=== PATIENT | female | born 1960 | race Caucasian/White ===

== ENCOUNTER 2024-10-28 08:21 | Outpatient (REF) | payer MEDICARE, MEDICAID, SELFPAY ==
--- NOTE | ~2024-10-28 | XR_ITS ---
EXAMINATION: XR SHOULDER 2 OR MORE VIEWS RIGHT HISTORY: M25.511 - Pain in right shoulder COMPARISON: There are no prior studies available for comparison. FINDINGS: Two views of the right shoulder are submitted. Osseous mineralization is normal. There is a moderately displaced transverse fracture of the proximal humeral diaphysis. There is moderate angulation noted on the scapular Y view. The glenohumeral joint is not well evaluated. There is mild degenerative change of the AC joint. The patient is status post lower cervical fusion. The soft tissues are unremarkable. XR/XR shoulder RT min 2V IMPRESSION: Moderately displaced transverse fracture of the proximal humeral diaphysis. Electronically signed by: Camilo Grijalva MD 10/28/2024 10:14 AM [facility]
--- OUTSIDE RECORDS SUMMARY | 2024-10-28 08:36 | XMS_ITS | Encounter Summary ---
Author Organization [employer] Address [address] [facility] 7t [place] [address] Care Team Providers Care Community Development Planner Name Role Phone Jo AnnYnes SECURITY PUBLIC SAFETY OFFICER Primary Care Provider [phone] Felicia Mcdermott RN Unavailable Reina Shen Unavailable Ronna Lopez SECURITY PUBLIC SAFETY OFFICER Primary Care Provider [phone] Encounter Details Date Type Department Care Team (Late st Contact Info) Description 01/10/2024 Orders Only [facility] Information Management [address] [place], [place] [id number] Provider, Not In System Social History Tobacco Use Types Packs/Day Years Used Date Smoking Tobacco: Former Cigarettes Q uit: 2010 Smokeless Tobacco: Never Comments:Quit 13 years ago Alcohol Use Standard Drinks/Week Comments Never 0 (1 standard drink = 0.6 oz pur e alcohol) Alcohol Answer Date Recorded How often do you have a drink containing alcohol ? 0 01/10/2024 How many drinks containing a lcohol do you have on a typical day when you are drinking? 0 01/10/2024 How often do you have six or more drinks on one occasion? 0 01/10/2024 Depression Answer Date Recorded Patient Health Questionnaire-9 Score 4 02/02/2023 Housing Stability Answer Date Recorded What is your housing situation today? I have kamila manley 06/15/[address] you li ve. Do you have problems with any of the following? None of the above 06/15/2023 Food Insecurity Answer Date Recorded Within the past 12 months, y ou worried that your food would run out before you got money to buy more: Never True 06/15/2023 Within the past 12 months,th e food you bought just didn't last and you didn't have enough money to get more: Never True Transportation Answer Date Recorded In the past 12 months, has l ack of transportation kept you from medical appts, meetings, work or from getting things needed for daily living? No 06/15/2023 Intimate Partner Violence Answer Date R ecorded Within the last year, have y ou been afraid of your partner or ex-partner? 2 01/10/2024 Within the last year, have y ou been humiliated or emotionally abused in other ways by your partner or ex-partner? 2 Within the last year, have y ou been kicked, hit, slapped, or otherwise physically hurt by your partner or ex-partner? 2 01/10/2024 Within the last year, have y ou been raped or forced to have any kind of sexual activity by your partner or ex-partner? 2 01/10/2024 Utilities Answer Date Recorded In the past 12 months, has t he [employer], gas, oil or water company threatened to shut off services in your home? No 06/15/2023 Depression Answer Date Recorded Patient Health Questionnaire-2 Score 0 02/02/2023 Comments Unknown Sex and Gender Information Value Date Recorded Sex Assigned at Female 11/11/2022 2:22 PM EDT Legal Sex Female 6:21 PM EDT Gender Identity Female 06/24/2022 6:21 PM EDT Sexual Orientation Straight 06/24/2022 6: 21 PM EDT documented as of this encounter Plan of Treatment Upcoming Encounters Date Type Department Care Team (Late st Contact Info) Description 12/02/2024 12:40 PM EDT Office Visit [address] [phone] Ronna Lopez FNP [address] [place] [address] 03/25/2025 10:00 AM EDT Clinical Support [address] [phone] Felicia Mcdermott RN [address] [place] [phone] documented as of this encounter Procedures Procedure Name Priority Date/Time Associated Diagnosis Comments MAMMOGRAPHY Routine 01/05/2024 11:10 AM EDT documented in this encounter Results * Mammography (01/05/2024 11:10 AM EDT) Anatomical Region Laterality Modality Other us Not In System Provider HEALTH MAINTENANCE Final Result documented in this encounter Visit Diagnoses Not on filedocumented in this encounter Additional Health Concerns Assessment Noted Time PHQ-9 Depression Total Score: 4 02/03/20 23 9:35 AM EDT documented as of this encounter Care Teams Community Development Planner Relationship Specialty Start Date End Date Ynes Cherry FNP PCP - General Family Medicine 02/02/23 09/01/24 Ronna Lopez FNP [address] [place] [address] PCP - General Family Medicine 09/02/24 Felicia Mcdermott, RN [address] [place] [address] Cyber Incident Handler 05/24/23 Reina Shen [address] [place] [phone] Community [facility] Behavioral [facility] 08/30/23 documented as of this encounter
--- OUTSIDE RECORDS SUMMARY | 2024-10-28 08:36 | XMS_ITS | Encounter Summary ---
Author Organization [employer] Address [address] [facility] 7t [place] [address] Care Team Providers Care Baseball Scout Name Role Phone Ynes Cherry Primary Care Provider [phone] Felicia Mcdermott RN Unavailable Reina Shen Unavailable Ronna Lopez SALON SALES CONSULTANT Primary Care Provider [phone] Reason for Visit * Reason Comments Med Refill Encounter Details Date Type Department Care Team (Late st Contact Info) Description 06/11/2024 Refill [facility] [address] [place] [address] Ynes Cherry FNP [address] [place] [address] Social History Tobacco Use Types Packs/Day Years Used Date Smoking Tobacco: Former Cigarettes Q uit: 2009 Smokeless Tobacco: Never Comments:Quit 13 years ago [...] the past 12 months, has t he electric, gas, oil or water company threatened to shut off services in your home? No 06/15/2023 Depression Answer Date Recorded Patient Health Questionnaire-2 Score 0 02/02/2023 Comments No Sex and Gender Information Value Date Recorded Sex Assigned at Female 11/11/2022 2:22 PM EDT Legal Sex Female 6:21 PM EDT Gender Identity Female 06/24/2022 6:21 PM EDT Sexual Orientation Straight 06/24/2022 6: 21 PM EDT documented as of this encounter Miscellaneous Notes * Telephone Encounter - KERVIN Lance - 06/11/2024 4:12 PM EDT Approving, but needs appt for additional refills. * Telephone Encounter - Nicole Badillo - 06/11/2024 4:07 PM EDT PCP: KERVIN Dean Last in-person office visit: 01/10/2024 KERVIN Dean Lab Results Component Value Date BUN 9 05/22/2024 CREATININE 0.85 05/22/2024 EGFRCREATINI 86 09/06/2023 HGBA1C 5.9 (H) 05/22/2024 K 4.2 05/22/2024 TSH 2.90 02/02/2023 [] Lab due: [] BMP [] TSH [] A1C [] Appointment due: Future Appointments Date Time Provider Department Center 09/17/2024 10:00 AM Felicia Mcdermott RN [facility] Comments: documented in this encounter Plan of Treatment Upcoming Encounters Date Type Department Care Team (Late st Contact Info) Description 12/02/2024 12:40 PM EDT Office Visit [address] [phone] Ronna Lopez FNP [address] [place] [address] 03/25/2025 10:00 AM EDT Clinical Support [address] [phone] Felicia Mcdermott RN [address] [place] [address] documented as of this encounter Visit Diagnoses Not on filedocumented in this encounter Additional Health Concerns Assessment Noted Time PHQ-9 Depression Total Score: 4 02/03/20 23 9:35 AM EDT documented as of this encounter Care Teams Baseball Scout Relationship Specialty Start Date End Date Ynes Cherry FNP PCP - General Family Medicine 02/02/23 09/01/24 Ronna Lopez FNP [address] [place] [address] PCP - General Family Medicine 09/02/24 Felicia Mcdermott, BETSY [address] [place] [address] Automation And Controls Manager 05/24/23 Reina Shen [address] [place] [address] [facility] 08/30/23 documented as of this encounter
--- OUTSIDE RECORDS SUMMARY | 2024-10-28 08:37 | XMS_ITS | Encounter Summary ---
Author Organization [employer] Address [address] [facility] 7t [place] [address] Care Team Providers Care Resident Advisor Name Role Phone Ynes Cherry Primary Care Provider [phone] Felicia Mcdermott RN Unavailable Reina Shen Unavailable Ronna Lopez FAIRGROUND OPERATOR Primary Care Provider [phone] Encounter Details Date Type Department Care Team (Late st Contact Info) Description 06/09/2023 Abstract [facility] [address] [place] [address] Ynes Cherry FNP [address] [place] [address] [phone] Social History Tobacco Use Types Packs/Day Years Used Date Smoking Tobacco: Former Cigarettes Q uit: 2010 Smokeless Tobacco: Never Comments:Quit 13 years ago Alcohol Use Standard Drinks/Week Comments Never 0 (1 standard drink = 0.6 oz pur e alcohol) Depression Answer Date Recorded Patient Health Questionnaire-9 Score 4 02/02/2023 Housing Stability Answer Date Recorded What is your housing situation today? I have kamila manley 06/05/[address] you li ve. Do you have problems with any of the following? None of the above 06/05/2023 Food Insecurity Answer Date Recorded Within the past 12 months, y ou worried that your food would run out before you got money to buy more: Never True 06/05/2023 Within the past 12 months,th e food you bought just didn't last and you didn't have enough money to get more: Never True 04/2023 Transportation Answer Date Recorded In the past 12 months, has l ack of transportation kept you from medical appts, meetings, work or from getting things needed for daily living? No 06/05/2023 Utilities Answer Date Recorded In the past 12 months, has t he electric, gas, oil or water company threatened to shut off services in your home? No 06/05/2023 Depression Answer Date Recorded Patient Health Questionnaire-2 [...] Description 12/02/2024 12:40 PM EDT Office Visit [address] [phone] Ronna Lopez FNP [address] [place], [place] [phone] 03/25/2025 10:00 AM EDT Clinical Support [address] [phone] Felicia Mcdermott RN [address] [place] [phone] documented as of this encounter Visit Diagnoses Not on filedocumented in this encounter Additional Health Concerns Assessment Noted Time PHQ-9 Depression Total Score: 4 02/03/20 23 9:35 AM EDT documented as of this encounter Care Teams Resident Advisor Relationship Specialty Start Date End Date Ynes Cherry FNP PCP - General Family Medicine 02/02/23 09/01/24 Ronna Lopez FNP [address] [place] [address] PCP - General Family Medicine 09/02/24 Felicia Mcdermott, RN [address] [place] [phone] Powderer 05/24/23 Riena Shen [address] [place] [address] [facility] 08/30/23 documented as of this encounter
--- OUTSIDE RECORDS SUMMARY | 2024-10-28 08:37 | XMS_ITS | Encounter Summary ---
Author Organization [employer] Address [address] [facility] 7t [place] [address] Care Team Providers Care Broiler Chef Or Cook Name Role Phone Felicia Mcdermott RN Unavailable Reina Shen Unavailable Ronna Lopez Primary Care Provider [phone] Reason for Visit * Reason Comments Med Refill Encounter Details Date Type Department Care Team ([facility] st Contact Info) Description 09/29/2024 Refill [facility] [address] [place] [address] Ynes Cherry FNP [address] [place] [address] [phone] Primary hypertension Social History Tobacco Use Types Packs/Day Years [...] housing situation today? I have kamila manley 09/02/[address] you li ve. Do you have problems with any of the following? None of the above 09/02/2024 Food Insecurity Answer Date Recorded Within the past 12 months, y ou worried that your food would run out before you got money to buy more: Never True 09/02/2024 Within the past 12 months,th e food you bought just didn't last and you didn't have enough money to get more: Never True 01/2025 Transportation Answer Date Recorded In the past 12 months, has l ack of transportation kept you from medical appts, meetings, work or from getting things needed for daily living? No 09/02/2024 Intimate Partner Violence Answer Date R ecorded [...] the past 12 months, has t he [employer], gas, oil or water [employer] threatened to shut off services in your home? No 09/02/2024 Depression Answer Date Recorded Patient Health Questionnaire-2 Score 0 09/02/2024 Internet Access Answer Date Recorded Internet Access Q1 Yes 09/02/2024 Internet Access Q2 Not on file 09/02/2024 Comments No Sex and Gender Information Value Date Recorded Sex Assigned at Female 11/11/2022 2:22 PM EDT Legal Sex Female 6:21 PM EDT Gender Identity Female 06/24/2022 6:21 PM EDT Sexual Orientation Straight 06/24/2022 6: 21 PM EDT documented as of this encounter Miscellaneous Notes * Telephone Encounter - Starr Werner - 09/30/2024 10:18 AM EST PCP: KERVIN Armando Last in-person office visit: 09/02/2024 KERVIN Armando Lab Results Component Value Date BUN 12 09/17/2024 CREATININE 0.91 09/17/2024 EGFRCREATINI 86 09/06/2023 HGBA1C 5.8 (H) 09/17/2024 K 4.3 09/17/2024 TSH 2.90 02/02/2023 Assessment: [x] Protocol passed [] Lab due [] Appointment due Plan: [x] Please refill for 90 days [] Lab [] BMP [] TSH [] A1C [] Appointment due: Future Appointments Date Time Provider Department Center 10/01/2024 9:30 AM Felicia Mcdermott RN [facility] 12/02/2024 12:40 PM KERVIN Armando [facility] 03/25/2025 10:00 AM Felicia Mcdermott RN [facility] Comments: documented in this encounter Plan of Treatment Upcoming Encounters Date Type Department Care Team (Late st Contact Info) Description 12/02/2024 12:40 PM EDT Office Visit [address] [phone] Ronna Lopez FNP [address] [place] [address] 03/25/2025 10:00 AM EDT Clinical Support [address] [phone] Felicia Mcdermott RN [address] [place] [phone] documented as of this encounter Visit Diagnoses Diagnosis Primary hypertension Unspecified essential hypertension documented in this encounter Additional Health Concerns Assessment Noted Time PHQ-9 Depression Total Score: 4 02/03/20 23 9:35 AM EDT documented as of this encounter Care Teams Broiler Chef Or Cook Relationship Specialty Start Date End Date Ronna Lopez FNP [address] [place] [phone] PCP - General Family Medicine 09/02/24 Felicia Mcdermott, BETSY [address] [place] [address] Garnett Feeder 05/24/23 Reina Shen [address] [place] [phone] [facility] 08/30/23 documented as of this encounter
--- OUTSIDE RECORDS SUMMARY | 2024-10-28 08:37 | XMS_ITS | Clinical Summary ---
Author Organization [employer] Address [address] [place] [address] [address] [place] [address] Care Team Providers Care Universal Winding Machine Operator Name Role Phone Felicia Mcdermott RN Unavailable Reina Shen Unavailable Ronna Lopez Primary Care Provider [phone] Allergies Active Allergy Reactions Criticality Noted Date Comments Codeine Nausea And Vomiting Low 08/19/2013 Other reaction(s): Nausea, Vomiting, Diarrhea Oxycodone-Acetaminoph en Nausea And Vomiting Low 08/19/2013 Other reaction(s): Nausea, Vomiting, Diarrhea Medications hydrOXYzine HCl (Atarax) 25 MG tabletIndications :Schizoaffective disorder, depressive type ([facility]) 023 Active QUEtiapine (SEROquel) 100 MG tabletIndications :Schizoaffective disorder, depressive type ([facility]) 023 Active FreeStyle lancetsIndication s:Type 2 diabetes mellitus with diabetic neuropathy, with long-term current use of insulin ([facility]) 1 each by Other route 4 times daily. 400 each 3 023 Active glucose blood (FREESTYLE LITE) test stripIndications: Type 2 diabetes mellitus with diabetic neuropathy, with long-term current use of insulin ([facility]) 1 each by Other route 2 times daily. 400 each 3 023 Active lurasidone (Latuda) 60 MG tablet TAKE 1 TABLET BY MOUTH AT BEDTIME WITH FOOD 023 Active insulin degludec (Tresiba FlexTouch) 100 UNIT/ML injectionIndicati ons:Type 2 diabetes mellitus with diabetic neuropathy, with long-term current use of insulin ([facility]) ADMINISTER UP TO 78 UNITS UNDER THE SKIN DAILY IN THE MORNING 70 mL 3 024 Active metFORMIN XR (Glucophage-XR) 500 MG 24 hr tabletIndications :Type 2 diabetes mellitus with diabetic neuropathy, with long-term current use of insulin ([facility]) 500mg tabs, 2 tabs twice daily 360 tablet 3 024 Active cholecalciferol (Vitamin D-3) 25 MCG (1000 UT) capsuleIndication s:Vitamin D deficiency Take 1 capsule (25 mcg) by mouth Once per day. 90 capsule 3 024 Active empagliflozin (Jardiance) 25 MGIndications:Typ e 2 diabetes mellitus with other specified complication, unspecified whether nursing home insulin use ([facility]) TAKE 1 TABLET(25 MG) BY MOUTH IN THE MORNING 90 tablet 3 024 Active insulin aspart (NovoLOG FLEXPEN) 100 UNIT/ML penIndications:Ty pe 2 diabetes mellitus with diabetic neuropathy, with long-term current use of insulin ([facility]) Sliding scale inject under the skin. Sliding scale with meals 70-110 none 111-150 2U 151-200 4 201-250 6 251-300 8 301-350 10 351-400 12 30 mL 11 024 Active insulin aspart, with niacinamide, (Fiasp) 100 UNIT/ML injectionIndicati ons:Type 2 diabetes mellitus with diabetic neuropathy, with long-term current use of insulin ([facility]) Inject subcutaneousl y- Sliding scale TID with meals 70-110: none 111-150: 2U 151-200: 4U 201-250: 6U 251-300: 8U 301-350: 10U 351-400: 12U 30 mL 3 024 Active BD Pen Needle Nia 2nd Gen 32G X 4 MM miscIndications:T ype 2 diabetes mellitus with diabetic neuropathy, with long-term current use of insulin ([facility]) USE TO INJECT 4 TIMES DAILY 400 each 3 024 Active lisinopril 5 MG tabletIndications :Primary hypertension Take 1 tablet (5 mg) by mouth Once per day. 90 tablet 3 025 Active rosuvastatin (Crestor) 10 MG tabletIndications :Type 2 diabetes mellitus with diabetic neuropathy, with long-term current use of insulin ([facility]),Hyperli pidemia, unspecified hyperlipidemia type TAKE 1 TABLET(10 MG) BY MOUTH DAILY 90 tablet 3 025 Active Ozempic, 1 MG/DOSE, 4 MG/3ML solution pen-injector INJECT 1MG SUBCUT ONCE WEEKLY 3 mL 1 025 Active lisinopril 5 MG tabletIndications :Primary hypertension Take 1 tablet (5 mg) by mouth in the morning. 90 tablet 3 024 2024 Discontinued rosuvastatin (Crestor) 10 MG tabletIndications :Type 2 diabetes mellitus with diabetic neuropathy, with long-term current use of insulin ([facility]),Hyperli pidemia, unspecified hyperlipidemia type Take 1 tablet (10 mg) by mouth Once per day. 90 tablet 3 024 2024 Discontinued Ozempic, 1 MG/DOSE, 4 MG/3ML solution pen-injector INJECT 1 MG UNDER THE SKIN ONCE PER WEEK 3 mL 1 025 2024 Discontinued lisinopril 5 MG tabletIndications :Primary hypertension TAKE 1 TABLET(5 MG) BY MOUTH IN THE MORNING 90 tablet 3 025 2024 Discontinued(R eorder (will not trigger notification to Pharmacy)) Active Problems Problem Noted Date Diagnosed Date Cervical radiculopathy 02/02/2023 Class 1 obesity with serious comorbidity and body mass index (BMI) of 30.0 to 30.9 in adult 02/02/2023 Depression 02/02/2023 Fibrocystic breast disease in female 02/02/2023 OA (osteoarthritis) 02/02/2023 Type 2 diabetes mellitus wit h neurologic complication, with long-term current use of insulin 12/21/2022 Assessment & Plan (09/17/2024 11:48 AM EST): Stop Fiasp before breakfast Labs today and Felicia will call with any changes needed. Will consider Dexcom Pro if A1c still low, under 6.5% Assessment & Plan (05/22/2024 11:57 AM EDT): Continue current medication regimen including Tresiba 44 units every am, Novolog 6 units before breakfast only, Ozempic 1 mg weekly, Metformin 500mg, 2 tabs BID, Jardiance 25mg daily. Labs today, review and call Matilde if any adjustments needed. Assessment & Plan (03/13/2024 3:22 PM EDT): Continue Tresiba 44 units If Matilde experiences any unusual feelings like waking up during night more often than normal, nightmares, walking with headache or lightheaded she will test glucose over night to r/u low glucose. And call with any lows or concerns/questions. Assessment & Plan (02/21/2024 10:53 AM EDT): Continue current medication regimen. Labs drawn today, will review and call if changes needed. Keep up great job. Assessment & Plan (05/04/2023 9:34 AM EDT): Continue with prescribed medications. Return for follow up HgA1C recheck in 3 months. 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 of oral hypoglycemic drug 03/20/2020 Overview (07/18/2022): Note: Unchanged Menopausal state 11/27/2018 Hypertension 03/31/2016 Vitamin D deficiency 10/21/2013 Cervicalgia 05/20/2013 Overview (07/18/2022): Note: degenerative disc dx at c5-6 and c6-7 Fatty liver 11/15/2012 Hyperlipidemia 05/08/2012 Absence of both cervix and uterus, 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 Encounters Date Type Department Care Team Description 10/02/[address] [phone] Ronna Lopez FNP 10/02/[address] [phone] Ynes Cherry FNP Type 2 diabetes mellitus with diabetic neuropathy, with long-term current use of insulin ([facility]); Hyperlipidemia, unspecified hyperlipidemia type 09/30/[address] [place] [address] Ronna Lopez FNP Primary hypertension 09/29/[address] [phone] Ynes Cherry FNP Primary hypertension 09/17/2024 10:00 AM EST Clinical Support [address] [phone] Felicia Mcdermott RN Type 2 diabetes mellitus with diabetic neuropathy, with long-term current use of insulin ([facility]) 09/03/[address] [phone] Ynes Cherry FNP 09/02/2024 12:40 PM EST Office Visit [address] [phone] Ronna Lopez FNP Cerumen debris on tympanic membrane of both ears (Primary Dx); Type 2 diabetes mellitus with diabetic neuropathy, with long-term current use of insulin ([facility]) from Last 3 Months Immunizations Name Administration Dates Next Due Influenza Injectable Quadriv alant Preservative Free IIV4 MDCK 06/21/2018 Influenza injectable quadriv alent IIV4 with preservative 06/08/2016 Influenza injectable quadriv alent preservative free 04/19/2023,04/20/2022,05/11/2021,04/16,05/29/2017 Influenza, IIV3, injectable 06/03/2014 Influenza, Unspecified 06/18/2020,05/29/2017 Influenza, seasonal, injecta ble, preservative free 06/21/2018 Moderna Covid-19 Vaccine 12+ 07/31/2021,12/05/19 21,11/06/2020 Moderna Covid-19 Vaccine 6+ Bivalent 04/29/2022 Pneumococcal Polysaccharide PPSV23 04/17/2020, Tdap 09/27/2017 Zoster, Recombinant 06/18/2020,04/17/2020 Family History Medical History Relation Name Comments Hypertension Mother Breast cancer Sister Diabetes Neg Hx Heart disease Neg Hx Hyperlipidemia Neg Hx Kidney disease Neg Hx Stroke Neg Hx Relation Name Status Comments Mother Sister Social History Tobacco Use Types Packs/Day Years Used Date Smoking Tobacco: Former Cigarettes Q uit: 2009 Smokeless Tobacco: Never Tobacco Cessation:Counseling Given: Yes Comments:Quit 13 years ago Alcohol Use Standard [...] Orientation Straight 06/24/2022 6: 21 PM EDT Last Filed Vital Signs Vital Sign Reading Time Taken Comments Blood Pressure 112/62 09/02/2024 12:50 PM EST Pulse 115 09/02/2024 12:50 PM EST Temperature 36.3 ??C (97.3 ??F) 09/02/2024 12:[address] Respiratory Rate - - Oxygen Saturation 97% 09/02/2024 12:50 PM EST Inhaled Oxygen Concentration - - Weight 77.7 kg (171 lb 6.4 oz) 09/17/2024 10:17 AM EST Height 166.4 cm (5' 5.51 ) 02/21/2024 9:46 AM ED T Body Mass Index 28.08 02/21/2024 9:46 AM EDT Plan of Treatment Upcoming Encounters Date Type Department Care Team (Late st Contact Info) Description 12/02/2024 12:40 PM EDT Office Visit [address] [phone] Ronna Lopez FNP [address] [place] [phone] 03/25/2025 10:00 AM EDT Clinical Support [address] [phone] Felicia Mcdermott, RN [address] [place] [address] Health Maintenance Due Date Last Done Comments CT Colonography 1958 FIT DNA/Cologuard 1960 Sigmoidoscopy 1960 Hepatitis A Vaccines (1 of 2 - Risk 2-dose series) 1977 Hepatitis B Vaccines (1 of 3 - Risk 3-dose series) 2018 RSV Patients and Patients Aged 60 years or older (1 - Risk 60-74 years 1-dose series) 2018 FOBT 04/04/2024 04/04/2023, 09/2021, 04/21/2021, Additional history exists COVID-19 Vaccine ( season) 2024 04/29/2022, 07/31/2021, 12/04/2020, Additional history exists Colorectal Cancer Screening 04/29/2024 FIT 04/29/2024 Diabetes: Foot Exam 09/06/2024 09/06/2023, 09/06/2023, 09/06/2023, Additional history exists Mammogram 01/04/2025 01/05/2024, 01/05/2024 Alcohol/Substance Use Screening 01/09/2025 01/10/2024 Diabetes: Hemoglobin A1C 03/17/2025 025, 05/22/2024, 02/21/2024, Additional history exists Diabetes: Urine Protein Screening 05/22/2025 05/22/2024, 12/05/2023, 05/24/2023, Additional history exists Eye Exam 06/13/2025 06/13/2023, 03/28/2022 Depression Screening 09/02/2025 09/02/2024, 02/03/20 23 SDOH Screening 09/02/2025 09/02/2024 Tobacco Screening 09/02/2025 09/02/2024 Lipid Panel 09/17/2025 09/17/2024, 01/27, 09/06/2023, Additional history exists DTaP/Tdap/Td Vaccines (2 - Td or Tdap) 09/27/2027 09/27/2017 Colonoscopy 04/29/2032 04/29/2022 Hepatitis C Screening Completed 02/11/2019 Zoster Vaccines Completed 06/18/2020, 04/17/2020 Influenza Vaccine Completed 04/15/2024, , 04/20/2022, Additional history exists Pneumococcal Vaccine: 50+ Years Completed 04/15/2024, 04/17/2020, 06/03/2014 HIB Vaccines Aged Out No longer eligi ble based on patient's age to complete this topic HPV Vaccines Aged Out No longer eligi ble based on patient's age to complete this topic IPV Vaccines Aged Out No longer eligi ble based on patient's age to complete this topic Meningococcal Vaccine Aged Out No mathieu rosendo eligible based on patient's age to complete this topic RSV under 20 months Aged Out No longe r eligible based on patient's age to complete this topic Rotavirus Vaccines Aged Out No longer eligible based on patient's age to complete this topic Procedures Procedure Name Priority Date/Time Associated Diagnosis Comments LIPID PANEL WITH REFLEX TO DIRECT LDL Routine 09/17/2024 10:21 AM EST Type 2 diabetes mellitus with diabetic neuropathy, with long-term current use of insulin ([facility]) COMPREHENSIVE METABOLIC PANEL Routine 09/17/2024 10:21 AM EST Type 2 diabetes mellitus with diabetic neuropathy, with long-term current use of insulin ([facility]) VITAMIN B12 Routine 09/17/2024 10:21 AM EST Type 2 diabetes mellitus with diabetic neuropathy, with long-term current use of insulin ([facility]) CBC WITH AUTO DIFFERENTIAL Routine 09/17/2024 10:21 AM EST Type 2 diabetes mellitus with diabetic neuropathy, with long-term current use of insulin ([facility]) HEMOGLOBIN A1C WITH MPG Routine 09/17/2024 10:21 AM EST Type 2 diabetes mellitus with diabetic neuropathy, with long-term current use of insulin (CMS/H[facility]) ALBUMIN, RANDOM URINE W/CREATININE Routine 05/22/2024 11:41 AM EDT Diabetes mellitus without complication (CMS/HCC) BI MAMMOGRAM SCREENING TOMOSYNTHESIS BILATERAL Routine 01/05/2024 2:20 PM EDT HM DIABETES EYE EXAM Routine 06/13/2023 OCCULT BLOOD, FECAL, IMMUNOASSAY Routine 04/04/2023 9:25 AM EDT Encounter for screening for malignant neoplasm of colon COLONOSCOPY Routine 04/29/2022 HEPATITIS C ANTIBODY Routine 02/11/2019 from Last 3 Months or Most Recently Relevant to Health Maintenance Results * (ABNORMAL) Lipid Panel with Reflex to Direct LDL (09/17/2024 10:21 AM EST) Pathologist [facility] Cholesterol, Total 119 <200 mg/dL [employer] HDL Cholesterol 38(L) > OR = 50 mg/dL [employer] Triglycerides 263(H) <150 mg/dL [employer] Comment: If a non-fasting specimen was collected, consider repeat triglyceride testing on a fasting specimen if clinically indicated. Chema et al. J. of Clin. Lipidol. 2015;9:129-169. LDL Cholesterol 50 mg/dL [employer] Comment: Reference range: <100 Desirable range <100 mg/dL for primary prevention; ?? <70 mg/dL for patients with CHD or diabetic patients with > or = 2 CHD risk factors. LDL-C is now calculated using the Shahram-Friedman calculation, which is a validated novel method providing better accuracy than the Friedewald equation in the estimation of LDL-C. Shahram HAUSER et al. ARIANE. 2013;310(19): 4100-0787 (http://education.Nuggeta/faq/JYL027) Chol/HDLC Ratio 3.1 <5.0 (calc) [employer] Non-HDL Cholesterol 81 <130 mg/dL [employer] Comment: For patients with diabetes plus 1 major ASCVD risk factor, treating to a non-HDL-C goal of <100 mg/dL (LDL-C of <70 mg/dL) is considered a therapeutic option. Blood 09/17/2024 10:2 1 AM EST 09/17/2024 10:22 AM EST Narrative [facility] - 09/17/2024 9:57 PM EST FASTING:NO FASTING: NO Ronna Lopez [facility] BLOOD ORDERABLES Final Resul t Performing Organization Address [facility] Co de Phone Number ROBY Burden [address], [place] [address] [facility] [address] [place] [address] * (ABNORMAL) Hemoglobin A1c with Calculated Mean Plasma Glucose (MPG) (09/17/2024 10:21 AM EST) [facility] Hemoglobin A1c 5.8(H) <5.7 % of total Hgb [facility] [employer] Comment: For someone without known diabetes, a hemoglobin A1c value between 5.7% and 6.4% is consistent with prediabetes and should be confirmed with a follow-up test. For someone with known diabetes, a value <7% indicates that their diabetes is well controlled. A1c targets should be individualized based on duration of diabetes, age, comorbid conditions, and other considerations. This assay result is consistent with an increased risk of diabetes. Currently, no consensus exists regarding use of hemoglobin A1c for diagnosis of diabetes for children. Mean Plasma Glucose 129 mg/dL (calc) [facility] 09/17/2024 10:2 1 AM EST 09/17/2024 10:22 AM EST [facility] - 09/17/2024 9:57 PM EST FASTING:NO FASTING: NO Ronna Lopez [facility] BLOOD ORDERABLES Final Resul t Performing Organization Address [facility] Co de Phone Number [facility] [address], [facility] [place] [address] [facility] [address] [place] [address] * (ABNORMAL) CBC auto differential (09/17/2024 10:21 AM EST) [facility] White Blood Cell Count 9.5 3.8 - 10.8 Thousand/ uL [employer] Red Blood Cell Count 4.77 3.80 - 5.10 Million/u L [facility] Hemoglobin 14.1 11.7 - 15.5 g/dL [facility] Hematocrit 43.0 35.0 - 45.0 % [facility] MCV 90.1 80.0 - 100.0 fL [facility] MCH 29.6 27.0 - 33.0 pg [facility] MCHC 32.8 32.0 - 36.0 g/dL [facility] Comment: For adults, a slight decrease in the calculated MCHC value (in the range of 30 to 32 g/dL) is most likely not clinically significant; however, it should be interpreted with caution in correlation with other red cell parameters and the patient's clinical condition. RDW 13.1 11.0 - 15.0 % [facility] Platelet Count 372 140 - 400 Thousand/ uL [facility] MPV 10.6 7.5 - 12.5 fL [facility] Absolute Neutrophils 5,928 1,500 - 7,800 cells/uL [facility] Absolute Lymphocytes 2,394 850 - 3,900 cells/uL [facility] Absolute Monocytes 447 200 - 950 cells/uL [facility] Absolute Eosinophils 627(H) 15 - 500 cells/uL [facility] Basophils 105 0 - 200 cells/uL [facility] Neutrophils 62.4 % [facility] [place] [facility] Lymphocytes 25.2 % [facility] [place] [facility] Monocytes 4.7 % [facility] [place] [facility] Eosinophils 6.6 % [facility] [place] [facility] Basophils 1.1 % [facility] [employer] [place] [facility] Blood Venous blood specimen / Unknown 09/17/2024 10:21 AM EST 09/17/2024 10:22 AM EST Narrative [facility] - 09/17/2024 9:57 PM EST FASTING:NO FASTING: NO us Ronna [facility] BLOOD ORDERABLES Final Resul t [facility] [address], [place] [address] [facility] [address] [place] [address] * Vitamin B12 (09/17/2024 10:21 AM EST) Vitamin B12 322 200 - 1,100 pg/mL [facility] Comment: Please Note: Although the reference range for vitamin B12 is 200-1100 pg/mL, it has been reported that between 5 and 10% of patients with values between 200 and 400 pg/mL may experience neuropsychiatric and hematologic abnormalities due to occult B12 deficiency; less than 1% of patients with values above 400 pg/mL will have symptoms. Blood Venous blood specimen / Unknown 09/17/2024 10:21 AM EST 09/17/2024 10:22 AM EST Narrative [facility] - 09/17/2024 9:57 PM EST FASTING:NO FASTING: NO Ronna Lopez [facility] BLOOD ORDERABLES Final Resul t [facility] [address], [place] [address] [facility] [address] [place] [address] * (ABNORMAL) Comprehensive Metabolic Panel (09/17/2024 10:21 AM EST) Pathologist [facility] Glucose 174(H) 65 - 139 mg/dL [facility] Comment: ? Non-fasting reference interval Urea Nitrogen (BUN) 12 7 - 25 mg/dL [facility] Creatinine, Serum 0.91 0.50 - 1.05 mg/dL [facility] eGFR 70 > OR = 60 mL/min/1. 73m2 [facility] BUN/Creatinine Ratio SEE NOTE: (calc) [facility] Comment: ?? Not Reported: BUN and Creatinine are within ?? reference range. ? Sodium 140 135 - 146 mmol/L [facility] Potassium 4.3 3.5 - 5.3 mmol/L [facility] Chloride 104 98 - 110 mmol/L [employer] [facility] Carbon Dioxide 23 20 - 32 mmol/L [facility] [employer] [place] Calcium 9.5 8.6 - 10.4 mg/dL [facility] [place] [facility] Protein, Total 6.9 6.1 - 8.1 g/dL [facility] [employer] [place] [facility] Albumin 4.3 3.6 - 5.1 g/dL [facility] Globulin 2.6 1.9 - 3.7 g/dL (calc) [facility] [employer] [place] [facility] Albumin/Globuli n Ratio 1.7 1.0 - 2.5 (calc) [facility] Bilirubin, Total 0.3 0.2 - 1.2 mg/dL [facility] Alkaline Phosphatase 46 37 - 153 U/L [facility] AST 17 10 - 35 U/L [facility] ALT 18 6 - 29 U/L [facility] Blood Venous blood specimen / Unknown 09/17/2024 10:21 AM EST 09/17/2024 10:22 AM EST Narrative [facility] - 09/17/2024 9:57 PM EST FASTING:NO FASTING: NO us Ronna Lopez [facility] BLOOD ORDERABLES Final Resul t [facility] [address], [place] [address] [facility] [address] [place] [address] * Albumin, Random Urine W/Creatinine (05/22/2024 11:41 AM EDT) Creatinine, Random Urine 91 20 - 275 mg/dL [facility] [employer] Albumin, Urine 0.9 See Note: mg/dL [facility] Comment: Reference Range: Reference Range Not established Albumin/Creatinin e Ratio, Random Urine 10 <30 mg/g creat [facility] Comment: The ADA defines abnormalities in albumin excretion as follows: Albuminuria Category ?Result (mg/g creatinine) Normal to Mildly increased ?? <30 Moderately increased ? 30-299 Severely increased ? > OR = 300 The ADA recommends that at least two of three specimens collected within a 3-6 month period be abnormal before considering a patient to be within a diagnostic category. Urine (Urine, Random) 05/22/2024 11:41 AM EDT 05/22/2024 11:41 AM EDT Narrative [facility] - 05/23/2024 8:07 PM EDT FASTING:NO FASTING: NO Ynes Cherry SURGICAL RESIDENT LAB URINE ORDERABLES Final Res ult [employer] [address], [place] [address] [facility] [address] [place] [address] * BI Mammogram Screening Tomosynthesis Bilateral (01/05/2024 2:20 PM EDT) Anatomical Region Laterality Modality Breast Bilateral Mammography 01/05/2024 2:20 PM EDT Narrative 01/05/2024 5:02 PM EDT PROCEDURE: MM Digital Mammo Screening INDICATION: ??Screening for breast cancer. ??No known palpable abnormalities. COMPARISON: Back to 10/07/2013 including a diagnostic left breast ultrasound 07/05/2016 document fibrocystic change. TECHNIQUE:Full-field digital CC and MLO 3D tomosynthesis images of both breasts were acquired. Computer-aided detection (CAD) was utilized in the interpretation of this study. DENSITY: There are scattered areas of fibroglandular density. FINDINGS: No suspicious masses, microcalcifications, areas of architectural distortion, or skin thickening to suggest malignancy. There are a few scattered waxing and waning bilateral masses with low-suspicion features again noted. Scattered bilateral benign-appearing calcifications. Biopsy marker clip right breast. IMPRESSION: No mammographic evidence of malignancy. RECOMMENDATION: Annual mammographic screening. BI-RADS: 2 (Benign) Lay letter mailed to patient WSN: [id number] Ordering Physician: Ynes Cherry Dictated By: ?Juwan Romano MD Dictated Date/Time: ?01/05/24 4:58 pm Reviewed By: ?Juwan Romano MD Signed By: ? Juwan Romano MD Signed Date/Time: ? 01/05/24 4:58 pm Transcribed By: ? CSB Digital Controls Technical Officer Date/Time: ? 01/05/24 4:54 pm Birads: Procedure Note Nani, Image - 01/05/2024 PROCEDURE: MM Digital Mammo Screening INDICATION: Screening for breast cancer. No known palpableabnormalities. COMPARISON: Back to 10/07/2013 including a diagnostic left breastultrasound 07/05/2016 document fibrocystic change. TECHNIQUE:Full-field digital CC and MLO 3D tomosynthesis images of bothbreasts were acquired. Computer-aided detection (CAD) was utilized in theinterpretation of this study. DENSITY: There are scattered areas of fibroglandular density. FINDINGS: No suspicious masses, microcalcifications, areas ofarchitectural distortion, or skin thickening to suggest malignancy. There are a few scattered waxing and waning bilateral masses withlow-suspicion features again noted. Scattered bilateral benign-appearing calcifications. Biopsy marker clip right breast. IMPRESSION: No mammographic evidence of malignancy. RECOMMENDATION: Annual mammographic screening. BI-RADS: 2 (Benign) Lay letter mailed to patient WSN: [id number] Ordering Physician: Ynes Cherry Dictated By: Juwan Romano MD Dictated Date/Time: 01/05/24 4:58 pm Reviewed By: Juwan Romano MD Signed By: Juwan Romano MD Signed Date/Time: 01/05/24 4:58 pm Transcribed By: CSB Digital Controls Technical Officer Date/Time: 01/05/24 4:54 pm Birads: Ynes SRIVASTAVAP IMG BI PROCEDURES Final Result * Diabetes Eye Exam (06/13/2023) Eye Exam Normal Normal Comment:REPEAT EYE EXAMIN 1 MONTH Result [facility] Historical Provider HEALTH MAINTENANCE Final Result * Occult Blood, Fecal, Immunoassay (04/04/2023 9:25 AM EDT) Fecal Occult Blood, Immunochemical (FIT) NEGATIVE (NEG) [facility] Comment: Testing performed or reported by [facility], a Service of [facility], [address] [place] [id number] King Hamm MD, Database Security Expert [facility]# [id number] 04/04/2023 9:25 AM EDT 04/10/2023 9:31 AM EDT Result [facility] Ynes GALEANA LAB BODY FLUIDS AND STOOLS ORD ERABLES Final Result Performing Organization Address City/State/[facility] Co de Phone Number [facility] [address] [place] [phone] * Colonoscopy (04/29/2022) Colonoscopy FIT NEGATIVE Result [facility] Historical Provider HEALTH MAINTENANCE Final Result * Hepatitis C Antibody (02/11/2019) Hepatitis C Antibody Nonreactive Blood Result [facility] Historical Provider HEALTH MAINTENANCE Final Result from Last 3 Months or Most Recently Relevant to Health Maintenance Insurance [employer] * Guarantor: Matilde Ferrer Account Type Relation to Patient Date of Phone Billing Address Dental Self Care Teams Universal Winding Machine Operator Relationship Specialty Start Date End Date Ronna Lopez FNP [address] [place] [address] PCP - General Family Medicine 09/02/24 Felicia Mcdermott, RN [address] [place] [address] Umbrella Repairer 05/24/23 Reina Shen [address] [place] [address] [facility] 08/30/23
--- OUTSIDE RECORDS SUMMARY | 2024-10-28 08:37 | XMS_ITS | Encounter Summary ---
Author Organization [employer] Address [address] [facility] 7t [place] [address] Care Team Providers Care Director Of Public Works Name Role Phone Ynes Cherry Primary Care Provider [phone] Felicia Mcdermott RN Unavailable Reina Shen Unavailable Ronna Lopez SHOTGUN SHELL ASSEMBLY MACHINE ADJUSTER Primary Care Provider [phone] Encounter Details Date Type Department Care Team (Late st Contact Info) Description 06/09/2023 Abstract [facility] [address] [place] [address] Ynes Cherry FNP [address] [place] [address] [phone] Social History Tobacco Use Types Packs/Day Years [...] Description 12/02/2024 12:40 PM EDT Office Visit [address] [phone] Ronna Lopez FNP [address] [place], [place] [phone] 03/25/2025 10:00 AM EDT Clinical Support [address] [phone] Felicia Mcdermott RN [address] [place] [address] documented as of this encounter Visit Diagnoses Not on filedocumented in this encounter Additional Health Concerns Assessment Noted Time PHQ-9 Depression Total Score: 4 02/03/20 23 9:35 AM EDT documented as of this encounter Care Teams Director Of Public Works Relationship Specialty Start Date End Date Ynes Cherry FNP PCP - General Family Medicine 02/02/23 09/01/24 Ronna Lopez FNP [address] [place] [address] PCP - General Family Medicine 09/02/24 Felicia Mcdermott, RN [address] [place] [address] Investigative Agent 05/24/23 Reina Shen [address] [place] [address] [facility] 08/30/23 documented as of this encounter
--- OUTSIDE RECORDS SUMMARY | 2024-10-28 08:37 | XMS_ITS | Encounter Summary ---
Author Organization [facility] [employer] [facility] Address [address] [place] [address] 7 [place] [address] Care Team Providers Care Digital Developer Name Role Phone Deedee Chappell MD Primary Care Provider [phone] Terri Bennett [facility] Primary Care Provider Unavail able King Cameron Unassigned Primary Care Provider U Ynes Bower CHUCKING AND SAWING MACHINE OPERATOR Primary Care Provider Ynes Cherry [facility] Primary Care Provider Felicia Mcdermott RN Unavailable Reina Shen Unavailable Ronna Lopez [facility] Primary Care Provider Encounter Details Date Type Department Care Team (Late st Contact Info) Description 07/18/[address] [phone] Deedee Chappell MD [address] [place] [address] Social History Tobacco Use Types Packs/Day Years Used Date Smoking Tobacco: Never Assessed Comments Unknown Sex and Gender Information Value [...] Description 12/02/2024 12:40 PM EDT Office Visit [address] [phone] Ronna Lopez FNP [address] [place] [address] 03/25/2025 10:00 AM EDT Clinical Support [address] [phone] Felicia Mcdermott, RN [address] [place] [address] documented as of this encounter Visit Diagnoses Not on filedocumented in this encounter Care Teams Digital Developer Relationship Specialty Start Date End Date Deedee Chappell MD [address] [place] [address] PCP - General Family Medicine 07/18/22 08/08/22 Terri Bennett FNP [address] [place] [address] PCP - General Family Medicine 08/09/22 12/05/22 King Cameron Unassigned PCP - General Family Medicine 12/06/22 12/20/22 Ynes Cherry FNP PCP - General Family Medicine 12/21/22 12/21/22 Ynes Cherry FNP PCP - General Family Medicine 02/02/23 09/01/24 Ronna Lopez FNP [address] [place] [address] PCP - General Family Medicine 09/02/24 Felicia Mcdermott, RN [address] [place] [address] Restaurant Worker 05/24/23 Reina Shen [address] [place] [address] [facility] 08/30/23 documented as of this encounter
--- OUTSIDE RECORDS SUMMARY | 2024-10-28 08:37 | XMS_ITS | Encounter Summary ---
Author Organization [employer] Address [address] [facility] 7t [place] [address] Care Team Providers Care Pelt Salter Name Role Phone Ynes Cherry Primary Care Provider [phone] Felicia Mcdermott RN Unavailable Reina Shen Unavailable Ronna Lopez MIXED CROP FARMER Primary Care Provider [phone] Encounter Details Date Type Department Care Team (Late st Contact Info) Description 02/06/2023 Telephone [facility] [address] [place] [address] Ynes Cherry FNP [address] [place] [address] [phone] Social History Tobacco Use Types Packs/Day Years Used Date Smoking Tobacco: Former Cigarettes Q uit: 2010 Smokeless Tobacco: Never Comments:Quit 13 years ago Alcohol Use Standard Drinks/Week Comments Never 0 (1 standard drink = 0.6 oz pur e alcohol) Depression Answer Date Recorded Patient Health Questionnaire-9 Score 4 02/02/2023 Depression Answer Date Recorded Patient Health Questionnaire-2 Score 0 02/02/2023 Comments Unknown Sex and Gender Information Value Date Recorded Sex Assigned at Female 11/11/2022 2:22 PM EDT Legal Sex Female 6:21 PM EDT Gender Identity Female 06/24/2022 6:21 PM EDT Sexual Orientation Straight 06/24/2022 6: 21 PM EDT COVID-19 Exposure Response Date Recorded In the last 10 days, have yo u been in contact with someone who was confirmed or suspected to have Coronavirus/COVID-19? No / Unsure 02/02/2023 8:39 AM EDT documented as of this encounter Miscellaneous Notes * Telephone Encounter - KERVIN [place] - 02/07/2023 11:03 AM EDT This appears to be a duplicate tasks * Telephone Encounter - Ana Pearce - 02/06/2023 10:25 AM EDT Looking for lab results documented in this encounter Plan of Treatment Upcoming Encounters Date Type Department Care Team (Late st Contact Info) Description 12/02/2024 12:40 PM EDT Office Visit [address] [phone] Ronna Lopez FNP [address] [place] [address] 03/25/2025 10:00 AM EDT Clinical Support [address] [phone] Felicia Mcdermott RN [address] [place] [address] documented as of this encounter Visit Diagnoses Not on filedocumented in this encounter Additional Health Concerns Assessment Noted Time PHQ-9 Depression Total Score: 4 02/03/20 23 9:35 AM EDT documented as of this encounter Care Teams Pelt Salter Relationship Specialty Start Date End Date Ynes Cherry FNP PCP - General Family Medicine 02/02/23 09/01/24 Ronna Lopez FNP [address] [place] [address] PCP - General Family Medicine 09/02/24 Felicia Mcdermott, RN [address] [place] [address] Real Estate Assessor 05/24/23 Reina Shen [address] [place] [address] [facility] 08/30/23 documented as of this encounter
--- OUTSIDE RECORDS SUMMARY | 2024-10-28 08:37 | XMS_ITS | Encounter Summary ---
Author Organization [employer] Address [address] [facility] 7t [place] [address] Care Team Providers Care Kier Drier Name Role Phone Felicia Mcdermott RN Unavailable Reina Shen Unavailable Ronna Lopez Primary Care Provider [phone] Reason for Visit * Reason Comments Med Refill Encounter Details Date Type Department Care Team ([facility] st Contact Info) Description 10/02/2024 Refill [facility] [address] [place] [address] Ynes Cherry FNP [address] [place] [address] [phone] Type 2 diabetes mellitus with diabetic neuropathy, with long-term current use of insulin ([facility]); Hyperlipidemia, unspecified hyperlipidemia type Social History Tobacco Use Types Packs/Day Years [...] * Telephone Encounter - Starr Werner - 10/02/2024 8:06 AM EST PCP: KERVIN Armando Last in-person [...] Future Appointments Date Time Provider Department Center 12/02/2024 12:40 PM KERVIN Armando [facility] 03/25/2025 10:00 AM Felicia Mcdermott RN [facility] Comments: documented in this encounter Plan of Treatment Upcoming Encounters Date Type Department Care Team (Late st Contact Info) Description 12/02/2024 12:40 PM EDT Office Visit [address] [phone] Ronna Lopez FNP [address] [place] [address] 03/25/2025 10:00 AM EDT Clinical Support [address] [phone] Felicia Mcdermott, RN [address] [place] [address] documented as of this encounter Visit Diagnoses Diagnosis Type 2 diabetes mellitus with diabetic neuropathy, with long-term current use of insulin ([facility]) Hyperlipidemia, unspecified hyperlipidemia type documented in this encounter Additional Health Concerns Assessment Noted Time PHQ-9 Depression Total Score: 4 02/03/20 23 9:35 AM EDT documented as of this encounter Care Teams Kier Drier Relationship Specialty Start Date End Date Ronna Lopez FNP [address] [place] [address] PCP - General Family Medicine 09/02/24 Felicia Mcdermott, RN [address] [place] [address] Printer Helper 05/24/23 Reina Shen [address] [place] [address] [facility] 08/30/23 documented as of this encounter
--- OUTSIDE RECORDS SUMMARY | 2024-10-28 08:37 | XMS_ITS | Encounter Summary ---
Author Organization [employer] Address [address] [facility] 7t [place] [address] Care Team Providers Care Dean Of Graduate Studies Name Role Phone Wiley Mcdermott RN Unavailable Reina Shen Unavailable Ronna Lopez Primary Care Provider [phone] Encounter Details Date Type Department Care Team (Late st Contact Info) Description 09/30/2024 Refill [facility] [address] [facility] [address] [place] [address] Ronna Lopez FNP [address] [place] [address] Primary hypertension Social History Tobacco Use Types [...] the past 12 months, has t he [employer], gas, oil or water [employer] threatened to shut off services in your [...] encounter Miscellaneous Notes * Telephone Encounter - Renate Oneill - 10/02/2024 3:45 PM EST Patient has been scheduled for 10/07 for dexcom placement with Manuel Mcdermott * Telephone Encounter - Natalya Dai - 09/30/2024 2:01 PM EST PCP: KERVIN Armando Last in-person office visit: was on 09/02/2024. Lab Results Component Value Date BUN 12 [...] Department Center 12/02/2024 12:40 PM KERVIN Armando [facility] 03/25/2025 10:00 AM Wiley Mcdermott, BETSY [facility] Comments: * Telephone Encounter - Lucero Ren - 09/30/2024 10:40 AM EST Patient is looking to reschedule with wiley mcdermott. Call back # [phone] documented in this encounter Plan of Treatment Upcoming Encounters Date Type Department Care Team (Late st Contact Info) Description 12/02/2024 12:40 PM EDT Office Visit [address] [phone] Ronna Lopez FNP [address] [place] [address] 03/25/2025 10:00 AM EDT Clinical Support [address] [phone] Wiley Mcdermott, RN [address] [place] [address] documented as of this encounter Visit Diagnoses Diagnosis Primary hypertension Unspecified essential hypertension documented in this encounter Additional Health Concerns Assessment Noted Time PHQ-9 Depression Total Score: 4 02/03/20 23 9:35 AM EDT documented as of this encounter Care Teams Dean Of Graduate Studies Relationship Specialty Start Date End Date Ronna Lopez FNP [address] [place] [address] PCP - General Family Medicine 09/02/24 Wiley Mcdermott RN [address] [place] [address] Credit Or Loans Officer 05/24/23 Reina Shen [address] [place] [address] [facility] 08/30/23 documented as of this encounter
--- OUTSIDE RECORDS SUMMARY | 2024-10-28 08:37 | XMS_ITS | Encounter Summary ---
Author Organization [employer] Address [address] [place] [address] 7 [place] [address] Care Team Providers Care Towel Inspector Name Role Phone Felicia Mcdermott RN Unavailable Reina Shen Unavailable Ronna Lopez Primary Care Provider [phone] Reason for Visit * Reason Comments Med Refill Encounter Details Date Type Department Care Team ([facility] st Contact Info) Description 10/02/2024 Refill [facility] [address] [place] [address] Ronna Lopez FNP [address] [place], [place] [phone] Social History Tobacco Use Types Packs/Day Years [...] the past 12 months, has t he ideeli, gas, oil or water [employer] threatened to shut off services in your [...] Appointment due Plan: [x] Please refill for 30 days [] Lab [] BMP [] TSH [] A1C [] Appointment due: Future Appointments Date Time Provider Department Center 12/02/2024 12:[address] [facility] 03/25/2025 10:00 AM Felicia Mcdermott RN [facility] Comments: documented in this encounter Plan of Treatment Upcoming Encounters Date Type Department Care Team (Late st Contact Info) Description 12/02/2024 12:40 PM EDT Office Visit [address] [address] Ronna Lopez FNP [address] [place] [address] 03/25/2025 10:00 AM EDT Clinical Support [address] [phone] Felicia Mcdermott RN [address] [place] [address] documented as of this encounter Visit Diagnoses Not on filedocumented in this encounter Additional Health Concerns Assessment Noted Time PHQ-9 Depression Total Score: 4 02/03/20 23 9:35 AM EDT documented as of this encounter Care Teams Towel Inspector Relationship Specialty Start Date End Date Ronna Lopez FNP [address] [place] [address] PCP - General Family Medicine 09/02/24 Felicia Mcdermott, RN [address] [place] [address] Imaging Account Manager 05/24/23 Reina Shen [address] [place] [phone] [facility] 08/30/23 documented as of this encounter
== END 2024-10-28 08:22 | disposition home or self-care (01) ==
LOC: HO.HOSX 08:21
PROVIDERS: Visit Provider Physician Assistant
DX: M25.511 Pain in right shoulder (principal); S42.301A Unspecified fracture of shaft of humerus, right arm, initial encounter for closed fracture
CPT/HCPCS: 73030; 99202

== ENCOUNTER 2024-10-28 09:16 | Outpatient (AMB) | payer MEDICARE, MEDICAID, SELFPAY ==
--- NOTE | 2024-10-28 09:22 | MHC.OFFVIS ---
Vital Signs 10/28/24 09:27 Height 5 ft 8 in Weight 169 lb BMI 25.7 Handedness Right Intake Visit Reasons: FC-Rt shoulder humerus shaft fx Intake Note: Matilde is a 63 year old right hand dominant female who presents today as a new patient for an ER follow up of RT humerus fracture, DOI 10/15/24. Patient presented to [facility] by ambulance s/p slipping and falling on ice. Patient states she is very sore. She mentions that she is very sore and her ROM is limited. Patient states that her pain medication is giving her mild relief. Allergies No Known Allergies Allergy (Verified 10/28/24 09:26) Medication List - Last Reviewed 10/28/24 by Kaila Alegre acetaminophen 500 mg PO Q6H PRN aripiprazole 5 mg PO DAILY bisacodyl 10 mg [place] DAILY PRN dextrose 40% (Glutose-45) 10 grams PO Q15M PRN glucagon (GlucaGen HypoKit) 1 mg subcut Q20M PRN hydromorphone (Dilaudid) 4 mg PO Q6H PRN hydroxyzine HCl 25 mg PO BID PRN hydroxyzine pamoate 25 mg PO BID PRN ibuprofen 600 mg PO Q8H PRN insulin degludec (Tresiba FlexTouch U-100 insulin) 20 units subcut BID lisinopril 5 mg PO DAILY lurasidone 60 mg PO DAILY magnesium hydroxide (Milk of Magnesia) 5 mL PO DAILY PRN metformin 1,000 mg PO DAILY ondansetron HCl 4 mg PO Q6H rosuvastatin 10 mg PO DAILY sodium phosphates 19-7 gram/118 mL (Fleet Enema) 118 mL [place] DAILY PRN HPI HPI FC-Rt shoulder humerus shaft fx: Details: 63 yo female presents to the office today for an injury she sustained to her right humerus on 10/18/24. She stats she was outside and she fell on the ice and landed on the right shoulder. She was seen in the ED via EMS. XR obtained significant for humeral shaft fx She was placed in a splint and a sling and discharge to a short-term rehab. She was referred to our office for ortho eval. PFS Social History (Updated 10/28/24 @ 09:27 by Kaila Alegre) Alcohol intake: never Patient Tobacco Use Status: Never used Tobacco Current occupational status: retired and disabled Current occupation: right hand dominant Review of Systems Const All systems reviewed & are unremarkable except as noted in HPI and below Physical Exam Vital Signs: BMI result Body Mass Index 25.7 Const General: cooperative and no acute distress Orientation/consciousness: patient oriented x3 Resp Effort & Inspection: normal respiratory effort and able to speak in complete sentences Cardio Peripheral pulses: Peripheral pulses 2+ throughout Neuro General: patient oriented x3 Extrem Other: Right shoulder normal joint inspection she does have diffuse swelling over the proximal humerus which extends down into the elbow and forearm. Anterior deltoid sensation intact she has mild tenderness over the fracture site. She can perform elbow range of motion without pain. Wrist range of motion intact. Radial nerve function and sensation intact. Pulses present. Office Procedures AMB Fracture Care Fracture Billing Code: Fracture Billing Code Results Reviewed Results Reviewed: X-rays of the right shoulder obtained in the office today significant for a humeral shaft fracture with significant displacement and angulation. Assessment & Plan Assessment & Plan (1) Fracture of humeral shaft, right, closed: Code(s): S42.301A - Unspecified fracture of shaft of humerus, right arm, initial encounter for closed fracture Category: Medical Plan images were reviewed with Dr. Wolf in the office today. I discussed the extent of the injury to the patient and options available which include conservative management. She was placed in a thermal molded humerus brace today which should be worn at all times. She can use a sling for comfort. I did explain to the patient that gravity will help to reduce the fracture and the surrounding soft tissues help to encapsulate and immobilize as well. We will see her back in 6 weeks with x-rays. If she develops new symptoms such as irritation of the skin or worsening pain she can contact our office to be seen sooner. Orders: Orders XR shoulder RT min 2V Today M25.511 - Pain in right shoulder Coding Level of Care Code New Pt Level 3 (84174) Complex EM visit Add On G2211 Diagnoses Fracture of humeral shaft, right, closed S42.301A CPT Codes Fracture Care - Fracture Billing Code: Fracture Billing Code ([id number])
[2024-10-28 09:27] VITALS: BMI 25.7
--- OUTSIDE RECORDS SUMMARY | 2024-10-28 10:02 | XMS_ITS | Encounter Summary ---
Author Organization [employer] Address [address] [place] [address] 7 [place] [address] Care Team Providers Care Sugar Plantation Manager Name Role Phone Felicia Mcdermott RN Unavailable Reina Shen Unavailable Ronna Lopez Primary Care Provider [phone] Reason for Visit * Reason Comments Med Refill Encounter Details Date Type Department Care Team ([facility] st Contact Info) Description 10/02/2024 Refill [facility] [address] [place] [address] Ronna Lopez FNP [address] [place], [place] [phone] Social History Tobacco Use Types Packs/Day Years [...] the past 12 months, has t he [employer], gas, oil or water [employer] threatened to shut off services in your [...] Department Center 12/02/2024 12:40 PM KERVIN Armando [facility] 03/25/2025 10:00 AM Felicia Mcdermott RN [facility] Comments: documented in this encounter Plan of Treatment Upcoming Encounters Date Type Department Care Team (Late st Contact Info) Description 12/02/2024 12:40 PM EDT Office Visit [address] [address] Ronna Lopez FNP [address] [place] [address] 03/25/2025 10:00 AM EDT Clinical Support [address] [phone] Felicia Mcdermott RN [address] [place] [address] documented as of this encounter Visit Diagnoses Not on filedocumented in this encounter Additional Health Concerns Assessment Noted Time PHQ-9 Depression Total Score: 4 02/03/20 23 9:35 AM EDT documented as of this encounter Care Teams Sugar Plantation Manager Relationship Specialty Start Date End Date Ronna Lopez FNP [address] [place] [address] PCP - General Family Medicine 09/02/24 Felicia Mcdermott, RN [address] [place] [address] Electromagnet Crane Operator 05/24/23 Reina Shen [address] [place] [phone] [facility] 08/30/23 documented as of this encounter
--- OUTSIDE RECORDS SUMMARY | 2024-10-28 10:02 | XMS_ITS | Encounter Summary ---
Author Organization [employer] Address [address] [facility] 7t [place] [address] Care Team Providers Care Hull Grinder Name Role Phone Felicia Mcdermott RN Unavailable Reina Shen Unavailable Ronna Lopez Primary Care Provider [phone] Reason for Visit * Reason Comments Med Refill Encounter Details Date Type Department Care Team ([facility] st Contact Info) Description 10/02/[address] [facility] [address] [place] [address] Ynes Cherry FNP [address] [place] [address] [phone] Type 2 diabetes mellitus with diabetic neuropathy, with long-term current use of insulin ([facility]); Hyperlipidemia, unspecified hyperlipidemia type Social History Tobacco [...] Department Center 12/02/2024 12:40 PM KERVIN Armando [facility] 03/25/2025 10:00 AM Felicia Mcdermott RN [facility] Comments: documented in this encounter Plan of Treatment Upcoming Encounters Date Type Department Care Team (Late st Contact Info) Description 12/02/2024 12:40 PM EDT Office Visit [address] [phone] Ronna Lopez FNP [address] [place] [address] 03/25/2025 10:00 AM EDT Clinical Support [address] [phone] Felicia Mcdermott, RN [address] [place] [address] documented as of this encounter Visit Diagnoses Diagnosis Type 2 diabetes mellitus with diabetic neuropathy, with long-term current use of insulin ([facility]) Hyperlipidemia, unspecified hyperlipidemia type documented in this encounter Additional Health Concerns Assessment Noted Time PHQ-9 Depression Total Score: 4 02/03/20 23 9:35 AM EDT documented as of this encounter Care Teams Hull Grinder Relationship Specialty Start Date End Date Ronna Lopez FNP [address] [place] [address] PCP - General Family Medicine 09/02/24 Felicia Mcdermott, RN [address] [place] [address] Animal Assistant 05/24/23 Reina Shen [address] [place] [address] [facility] 08/30/23 documented as of this encounter
--- OUTSIDE RECORDS SUMMARY | 2024-10-28 10:02 | XMS_ITS | Encounter Summary ---
Author Organization [facility] [employer] [facility] Address [address] [place] [address] 7 [place] [address] Care Team Providers Care Water Analyst Name Role Phone Deedee Chappell MD Primary Care Provider [phone] Terri Bennett [facility] Primary Care Provider Unavail able [place] Unassigned Primary Care Provider U Ynes Bower SUPERVISOR PICKING [employer] Primary Care Provider Ynes Cherry [facility] Primary Care Provider [phone] Felicia Mcdermott RN Unavailable Reina Shen Unavailable Ronna Lopez [facility] Primary Care Provider [phone] Encounter Details Date Type Department Care Team (Late st Contact Info) Description 07/18/[address] [phone] Deedee Chappell MD [address] [place] [address] Social History Tobacco Use Types Packs/Day Years [...] Description 12/02/2024 12:40 PM EDT Office Visit [address] [phone] Ronna Lopez FNP [address] [place] [address] 03/25/2025 10:00 AM EDT Clinical Support [address] [phone] Felicia Mcdermott, RN [address] [place] [address] documented as of this encounter Visit Diagnoses Not on filedocumented in this encounter Care Teams Water Analyst Relationship Specialty Start Date End Date Deedee Chappell MD [address] [place] [address] PCP - General Family Medicine 07/18/22 08/08/22 Terri Bennett FNP [address] [place] [address] PCP - General Family Medicine 08/09/22 12/05/22 [place] Unassigned PCP - General Family Medicine 12/06/22 12/20/22 Ynes Cherry FNP PCP - General Family Medicine 12/21/22 12/21/22 Ynes Cherry FNP PCP - General Family Medicine 02/02/23 09/01/24 Ronna Lopez FNP [address] [place] [address] PCP - General Family Medicine 09/02/24 Felicia Mcdermott, RN [address] [place] [address] Metal Storage Worker 05/24/23 Reina Shen [address] [place] [phone] [facility] 08/30/23 documented as of this encounter
--- OUTSIDE RECORDS SUMMARY | 2024-10-28 10:02 | XMS_ITS | Encounter Summary ---
Author Organization [employer] Address [address] [facility] 7t [place] [address] Care Team Providers Care General Office Worker Name Role Phone Ynes Cherry Primary Care Provider [phone] Felicia Mcdermott RN Unavailable Reina Shen Unavailable Ronna oLpez JOB SUPERINTENDENT Primary Care Provider [phone] Reason for Visit * Reason Comments Med Refill Encounter Details Date Type Department Care Team (Late st Contact Info) Description 06/11/2024 Refill [facility] [address] [place] [address] Ynes Cherry FNP [address] [place] [address] Social History Tobacco Use Types Packs/Day [...] Center 09/17/2024 10:00 AM Felicia Mcdermott RN [facility] Comments: documented in this encounter Plan of Treatment Upcoming Encounters Date Type Department Care Team (Late st Contact Info) Description 12/02/2024 12:40 PM EDT Office Visit [address] [phone] Ronna Lopez FNP [address] [place] [address] 03/25/2025 10:00 AM EDT Clinical Support [address] [phone] Felicia Mcdermott RN [address] [place] [address] documented as of this encounter Visit Diagnoses Not on filedocumented in this encounter Additional Health Concerns Assessment Noted Time PHQ-9 Depression Total Score: 4 02/03/20 23 9:35 AM EDT documented as of this encounter Care Teams General Office Worker Relationship Specialty Start Date End Date Ynes Cherry FNP PCP - General Family Medicine 02/02/23 09/01/24 Ronna Lopez FNP [address] [place] [phone] PCP - General Family Medicine 09/02/24 Felicia Mcdermott, BETSY [address] [place] [phone] Crossband Layer 05/24/23 Reina Shen [address] [place] [address] [facility] 08/30/23 documented as of this encounter
--- OUTSIDE RECORDS SUMMARY | 2024-10-28 10:02 | XMS_ITS | Encounter Summary ---
Author Organization [employer] Address [address] [facility] 7t [place] [address] Care Team Providers Care Adjunct Art History Instructor Name Role Phone Wiley Mcdermott RN Unavailable Reina Shen Unavailable Ronna Lopez Primary Care Provider [phone] Encounter Details Date Type Department Care Team (Late st Contact Info) Description 09/30/2024 Refill [facility] [address] [facility] [address] [place] [address] Ronna Lopez FNP [address] [place] [address] Primary hypertension Social History Tobacco Use Types [...] the past 12 months, has t he [email or web address], gas, oil or water [employer] threatened to shut off services in your [...] Department Center 12/02/2024 12:40 PM KERVIN Armando [facility] 03/25/2025 10:00 AM Wiley Mcdermott, BETSY [facility] Comments: * Telephone Encounter - Lucero Ren - 09/30/2024 10:40 AM EST Patient is looking to reschedule with wiley mcdermott. Call back # [phone] documented in this encounter Plan of Treatment Upcoming Encounters Date Type Department Care Team (Late st Contact Info) Description 12/02/2024 12:40 PM EDT Office Visit [address] [address] Ronna Lopez FNP [address] [place] [address] 03/25/2025 10:00 AM EDT Clinical Support [address] [phone] Wiley Mcdermott, RN [address] [place] [phone] documented as of this encounter Visit Diagnoses Diagnosis Primary hypertension Unspecified essential hypertension documented in this encounter Additional Health Concerns Assessment Noted Time PHQ-9 Depression Total Score: 4 02/03/20 23 9:35 AM EDT documented as of this encounter Care Teams Adjunct Art History Instructor Relationship Specialty Start Date End Date Ronna Lopez FNP [address] [place] [address] PCP - General Family Medicine 09/02/24 Wiley Mcdermott RN [address] [place] [address] Shirt Sewer 05/24/23 Reina Shen [address] [place] [address] [facility] 08/30/23 documented as of this encounter
--- OUTSIDE RECORDS SUMMARY | 2024-10-28 10:02 | XMS_ITS | Clinical Summary ---
Author Organization [employer] Address [address] [place] [address] 7t [place] [address] Care Team Providers Care Event Decorator And Designer Name Role Phone Felicia Mcdermott RN Unavailable Reina Shen Unavailable Ronna Lopez Primary Care Provider [phone] Allergies Active Allergy Reactions Criticality Noted Date Comments Codeine Nausea And Vomiting Low 08/19/2013 Other reaction(s): Nausea, Vomiting, Diarrhea Oxycodone-Acetaminoph en Nausea And Vomiting Low 08/19/2013 Other reaction(s): Nausea, Vomiting, Diarrhea Medications hydrOXYzine HCl (Atarax) 25 MG tabletIndications :Schizoaffective disorder, depressive type ([facility]) 023 Active QUEtiapine (SEROquel) 100 MG tabletIndications :Schizoaffective disorder, depressive type ([facility]) 023 Active FreeStyle lancetsIndication s:Type 2 diabetes mellitus with diabetic neuropathy, with long-term current use of insulin ([facility]) 1 each by Other route 4 times daily. 400 each 3 023 Active glucose blood (FREESTYLE LITE) test stripIndications: Type 2 diabetes mellitus with diabetic neuropathy, with long-term current use of insulin ([facility]) 1 each by Other route 2 times daily. 400 each 3 023 Active lurasidone (Latuda) 60 MG tablet TAKE 1 TABLET BY MOUTH AT BEDTIME WITH FOOD 023 Active insulin degludec (Tresiba FlexTouch) 100 UNIT/ML injectionIndicati ons:Type 2 diabetes mellitus with diabetic neuropathy, with long-term current use of insulin ([facility]) ADMINISTER UP TO 78 UNITS UNDER THE SKIN DAILY IN THE MORNING 70 mL 3 024 Active metFORMIN XR (Glucophage-XR) 500 MG 24 hr tabletIndications :Type 2 diabetes mellitus with diabetic neuropathy, with long-term current use of insulin ([facility]) 500mg tabs, 2 tabs twice daily 360 tablet 3 024 Active cholecalciferol (Vitamin D-3) 25 MCG (1000 UT) capsuleIndication s:Vitamin D deficiency Take 1 capsule (25 mcg) by mouth Once per day. 90 capsule 3 024 Active empagliflozin (Jardiance) 25 MGIndications:Typ e 2 diabetes mellitus with other specified complication, unspecified whether senior care insulin use ([facility]) TAKE 1 TABLET(25 MG) BY MOUTH IN THE MORNING 90 tablet 3 024 Active insulin aspart (NovoLOG FLEXPEN) 100 UNIT/ML penIndications:Ty pe 2 diabetes mellitus with diabetic neuropathy, with long-term current use of insulin ([facility]) Sliding scale inject under the skin. Sliding scale with meals 70-110 none 111-150 2U 151-200 4 201-250 6 251-300 8 301-350 10 351-400 12 30 mL 11 024 Active insulin aspart, with niacinamide, (Fiasp) 100 UNIT/ML injectionIndicati ons:Type 2 diabetes mellitus with diabetic neuropathy, with long-term current use of insulin ([facility]) Inject subcutaneousl y- Sliding scale TID with meals 70-110: none 111-150: 2U 151-200: 4U 201-250: 6U 251-300: 8U 301-350: 10U 351-400: 12U 30 mL 3 024 Active BD Pen Needle Nia 2nd Gen 32G X 4 MM miscIndications:T ype 2 diabetes mellitus with diabetic neuropathy, with long-term current use of insulin ([facility]) USE TO INJECT 4 TIMES DAILY 400 each 3 024 Active lisinopril 5 MG tabletIndications :Primary hypertension Take 1 tablet (5 mg) by mouth Once per day. 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 03/20/2020 Overview (07/18/2022): Note: Unchanged Menopausal state 11/27/2018 Hypertension 03/31/2016 Vitamin D deficiency 10/21/2013 Cervicalgia 05/20/2013 Overview (07/18/2022): Note: degenerative disc dx at c5-6 and c6-7 Fatty liver 11/15/2012 Hyperlipidemia 05/08/2012 Absence of both cervix and uterus, 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 Encounters Date Type Department Care Team Description 10/02/[address] [phone] Ronna Lopez FNP 10/02/[address] [phone] Ynes Cherry FNP Type 2 diabetes mellitus with diabetic neuropathy, with long-term current use of insulin ([facility]); Hyperlipidemia, unspecified hyperlipidemia type 09/30/[address] [place] [address] Ronna Lopez FNP Primary hypertension 09/29/[address] [phone] Ynes Cherry FNP Primary hypertension 09/17/2024 10:00 AM EST Clinical Support [address] [phone] Felicia Mcdermott RN Type 2 diabetes mellitus with diabetic neuropathy, with long-term current use of insulin ([facility]) 09/03/[address] [phone] Ynes Cherry FNP 09/02/2024 12:40 PM EST Office Visit [address] [phone] Ronna Lopez FNP Cerumen debris on tympanic membrane of both ears (Primary Dx); Type 2 diabetes mellitus with diabetic neuropathy, with long-term current use of insulin ([facility]) from Last 3 Months Immunizations Name Administration [...] Description 12/02/2024 12:40 PM EDT Office Visit [address] [phone] Ronna Lopez FNP [address] [place] [address] 03/25/2025 10:00 AM EDT Clinical Support [address] [phone] Felicia Mcdermott, RN [address] [place] [address] Health Maintenance Due Date Last Done Comments [...] neuropathy, with long-term current use of insulin ([facility]) COMPREHENSIVE METABOLIC PANEL Routine 09/17/2024 10:21 AM EST Type 2 diabetes mellitus with diabetic neuropathy, with long-term current use of insulin ([facility]) VITAMIN B12 Routine 09/17/2024 10:21 AM EST Type 2 diabetes mellitus with diabetic neuropathy, with long-term current use of insulin ([facility]) CBC WITH AUTO DIFFERENTIAL Routine 09/17/2024 10:21 AM EST Type 2 diabetes mellitus with diabetic neuropathy, with long-term current use of insulin ([facility]) HEMOGLOBIN A1C WITH MPG Routine 09/17/2024 10:21 [...] Direct LDL (09/17/2024 10:21 AM EST) Pathologist [facility] Cholesterol, Total 119 <200 mg/dL [employer] HDL Cholesterol 38(L) > OR = 50 mg/dL [employer] Triglycerides 263(H) <150 mg/dL [employer] Comment: If a non-fasting specimen was collected, consider repeat triglyceride testing on a fasting specimen if clinically indicated. Chema et al. J. of Clin. Lipidol. 2015;9:129-169. LDL Cholesterol 50 mg/dL [employer] Comment: Reference range: <100 Desirable range <100 mg/dL for primary prevention; ?? <70 mg/dL for patients with CHD or diabetic patients with > or = 2 CHD risk factors. LDL-C is now calculated using the Shahram-Friedman calculation, which is a validated novel method providing better accuracy than the Friedewald equation in the estimation of LDL-C. Shahram HAUSER et al. ARIANE. 2013;310(19): 5349-0028 (http://education.[employer]/faq/HQY305) Chol/HDLC Ratio 3.1 <5.0 (calc) [employer] Non-HDL Cholesterol 81 <130 mg/dL [employer] Comment: For patients with diabetes plus 1 major ASCVD risk factor, treating to a non-HDL-C goal of <100 mg/dL (LDL-C of <70 mg/dL) is considered a therapeutic option. Blood 09/17/2024 10:2 1 AM EST 09/17/2024 10:22 AM EST Narrative [facility] - 09/17/2024 9:57 PM EST FASTING:NO FASTING: NO Ronna Lopez [facility] LAB BLOOD ORDERABLES Final Resul t Performing Organization Address [facility] Co de Phone Number ROBY Burden [address], [place] [address] [facility] [place] [facility] [address] [place] [address] * (ABNORMAL) Hemoglobin A1c with Calculated Mean Plasma Glucose (MPG) (09/17/2024 10:21 AM EST) [facility] Hemoglobin A1c 5.8(H) <5.7 % of total Hgb [facility] [place] [facility] Comment: For someone without known diabetes, a [...] children. Mean Plasma Glucose 129 mg/dL (calc) [facility] [place] [facility] 09/17/2024 10:2 1 AM EST 09/17/2024 10:22 AM EST [facility] - 09/17/2024 9:57 PM EST FASTING:NO FASTING: NO Ronna Lopez [facility] LAB BLOOD ORDERABLES Final Resul t Performing Organization Address [facility] Co de Phone Number [facility] [address], [place] [address] [facility] [place] [facility] [address] [place] [address] * (ABNORMAL) CBC auto differential (09/17/2024 10:21 AM EST) [facility] White Blood Cell Count 9.5 3.8 - 10.8 Thousand/ uL [employer] Red Blood Cell Count 4.77 3.80 - 5.10 Million/u L [facility] [place] [facility] Hemoglobin 14.1 11.7 - 15.5 g/dL [facility] [place] [facility] Hematocrit 43.0 35.0 - 45.0 % [facility] [place] [facility] MCV 90.1 80.0 - 100.0 fL [facility] [place] [facility] MCH 29.6 27.0 - 33.0 pg [facility] [place] [facility] MCHC 32.8 32.0 - 36.0 g/dL [facility] [place] [facility] Comment: For adults, a slight decrease in the calculated MCHC value (in the range of 30 to 32 g/dL) is most likely not clinically significant; however, it should be interpreted with caution in correlation with other red cell parameters and the patient's clinical condition. RDW 13.1 11.0 - 15.0 % [facility] [place] [facility] Platelet Count 372 140 - 400 Thousand/ uL [facility] [place] [facility] MPV 10.6 7.5 - 12.5 fL [facility] [place] [facility] Absolute Neutrophils 5,928 1,500 - 7,800 cells/uL [facility] [place] [facility] Absolute Lymphocytes 2,394 850 - 3,900 cells/uL [facility] [place] [facility] Absolute Monocytes 447 200 - 950 cells/uL [facility] [place] [facility] Absolute Eosinophils 627(H) 15 - 500 cells/uL [facility] [place] [facility] Basophils 105 0 - 200 cells/uL [facility] [place] [facility] Neutrophils 62.4 % [facility] [place] [facility] Lymphocytes 25.2 % [facility] [place] [facility] Monocytes 4.7 % [facility] [place] [facility] Eosinophils 6.6 % [facility] [place] [facility] Basophils 1.1 % [facility] [place] [facility] Blood Venous blood specimen / Unknown 09/17/2024 10:21 AM EST 09/17/2024 10:22 AM EST Narrative [facility] - 09/17/2024 9:57 PM EST FASTING:NO FASTING: NO us Ronna [facility] LAB BLOOD ORDERABLES Final Resul t [facility] [address], [place] [address] [facility] [place] [facility] [address] [place] [address] * Vitamin B12 (09/17/2024 10:21 AM EST) Vitamin B12 322 200 - 1,100 pg/mL [facility] [place] [facility] Comment: Please Note: Although the reference range [...] PM EST FASTING:NO FASTING: NO Ronna Lopez [facility] LAB BLOOD ORDERABLES Final Resul t [facility] [address], [place] [address] [facility] [place] [facility] [address] [place] [address] * (ABNORMAL) Comprehensive Metabolic Panel (09/17/2024 10:21 AM EST) Pathologist [facility] Glucose 174(H) 65 - 139 mg/dL [facility] [place] [facility] Comment: ? Non-fasting reference interval Urea Nitrogen (BUN) 12 7 - 25 mg/dL [facility] [place] [facility] Creatinine, Serum 0.91 0.50 - 1.05 mg/dL [facility] [place] [facility] eGFR 70 > OR = 60 mL/min/1. 73m2 [facility] [place] [facility] BUN/Creatinine Ratio SEE NOTE: (calc) [facility] [place] [facility] Comment: ?? Not Reported: BUN and Creatinine are within ?? reference range. ? Sodium 140 135 - 146 mmol/L [facility] [place] [facility] Potassium 4.3 3.5 - 5.3 mmol/L [facility] [place] [facility] Chloride 104 98 - 110 mmol/L [facility] Carbon Dioxide 23 20 - 32 mmol/L [facility] [place] [facility] Calcium 9.5 8.6 - 10.4 mg/dL [facility] [place] [facility] Protein, Total 6.9 6.1 - 8.1 g/dL [facility] [place] [facility] Albumin 4.3 3.6 - 5.1 g/dL [facility] [place] [facility] Globulin 2.6 1.9 - 3.7 g/dL (calc) [facility] [place] [facility] Albumin/Globuli n Ratio 1.7 1.0 - 2.5 (calc) [facility] [place] [facility] Bilirubin, Total 0.3 0.2 - 1.2 mg/dL [facility] [place] [facility] Alkaline Phosphatase 46 37 - 153 U/L [facility] AST 17 10 - 35 U/L [facility] [place] [facility] ALT 18 6 - 29 U/L [facility] [place] [facility] Blood Venous blood specimen / Unknown 09/17/2024 10:21 AM EST 09/17/2024 10:22 AM EST Narrative [facility] - 09/17/2024 9:57 PM EST FASTING:NO FASTING: NO us Ronna Lopez [facility] LAB BLOOD ORDERABLES Final Resul t [facility] [address], [place] [address] [facility] [place] [facility] [address] [place] [address] * Albumin, Random Urine W/Creatinine (05/22/2024 11:41 AM EDT) Creatinine, Random Urine 91 20 - 275 mg/dL [facility] [place] [facility] [employer] Albumin, Urine 0.9 See Note: mg/dL [facility] [place] [facility] Comment: Reference Range: Reference Range Not established Albumin/Creatinin e Ratio, Random Urine 10 <30 mg/g creat [facility] [place] [facility] Comment: The ADA defines abnormalities in albumin [...] PM EDT FASTING:NO FASTING: NO Ynes Cherry [facility] URINE ORDERABLES Final Res ult [facility] [address], [place] [address] [facility] [address] [place] [address] * BI Mammogram Screening Tomosynthesis Bilateral (01/05/2024 [...] (Benign) Lay letter mailed to patient WSN: [id number] Ordering Physician: Ynes Cherry Dictated By: ?Juwan Romano MD Dictated Date/Time: ?01/05/24 4:58 pm Reviewed By: ?Juwan Romano MD Signed By: ? Juwan Romano MD Signed Date/Time: ? 01/05/24 4:58 pm Transcribed By: ? CSB Package Line Operator Date/Time: ? 01/05/24 4:54 pm Birads: Procedure [...] (Benign) Lay letter mailed to patient WSN: [id number] Ordering Physician: Ynes Cherry Dictated By: Juwan Romano MD Dictated Date/Time: 01/05/24 4:58 pm Reviewed By: Juwan Romano MD Signed By: Juwan Romano MD Signed Date/Time: 01/05/24 4:58 pm Transcribed By: CSB Package Line Operator Date/Time: 01/05/24 4:54 pm Birads: Ynes [facility] IMG BI PROCEDURES Final Result * Diabetes Eye Exam (06/13/2023) Eye Exam Normal Normal Comment:REPEAT EYE EXAMIN 1 MONTH Result [facility] Historical Provider HEALTH MAINTENANCE Final Result * Occult Blood, Fecal, Immunoassay (04/04/2023 9:25 AM EDT) Fecal Occult Blood, Immunochemical (FIT) NEGATIVE (NEG) [facility] Comment: Testing performed or reported by [facility], a Service of [facility], [address] [place] [address] King Hamm MD, Repairer Hairspring [facility]# [id number] 04/04/2023 9:25 AM EDT 04/10/2023 9:31 AM EDT Result [facility] Ynes [facility] BODY FLUIDS AND STOOLS ORD ERABLES Final Result Performing Organization Address City/State/[facility] Co de Phone Number [facility] [address] [place] [address] * Colonoscopy (04/29/2022) Colonoscopy FIT NEGATIVE Result [facility] Historical Provider HEALTH MAINTENANCE Final Result * Hepatitis C Antibody (02/11/2019) Hepatitis C Antibody Nonreactive Blood Result [facility] Historical Provider HEALTH MAINTENANCE Final Result from Last 3 Months or Most Recently Relevant to Health Maintenance Insurance [employer] [employer] * Guarantor: Matilde Ferrer Account Type Relation to Patient Date of Phone Billing Address Dental Self Care Teams Event Decorator And Designer Relationship Specialty Start Date End Date Ronna Lopez FNP [address] [place] [address] PCP - General Family Medicine 09/02/24 Felicia Mcdermott, RN [address] [place] [address] Label Printer 05/24/23 Reina Shen [address] [place] [address] [facility] 08/30/23
--- OUTSIDE RECORDS SUMMARY | 2024-10-28 10:02 | XMS_ITS | Encounter Summary ---
Author Organization [employer] Address [address] [facility] 7t [place] [address] Care Team Providers Care Epic Stork Specialists Name Role Phone Felicia Mcdermott RN Unavailable Reina Shen Unavailable Ronna Lopez Primary Care Provider [phone] Reason for Visit * Reason Comments Med Refill Encounter Details Date Type Department Care Team ([facility] st Contact Info) Description 09/29/2024 Refill [facility] [address] [place] [address] Ynes Cherry FNP [address] [place] [address] [phone] Primary hypertension Social History Tobacco Use Types [...] the past 12 months, has t he [employer], gas, oil or water [employer] threatened to shut off services in your [...] Armando Last in-person office visit: 09/02/2024 KERVIN Aramndo Lab Results Component Value Date BUN 12 [...] Center 10/01/2024 9:30 AM Felicia Mcdermott RN [facility] 12/02/2024 12:40 PM KERVIN Armando [facility] 03/25/2025 10:00 AM Felicia Mcdermott RN [facility] Comments: documented in this encounter Plan of Treatment Upcoming Encounters Date Type Department Care Team (Late st Contact Info) Description 12/02/2024 12:40 PM EDT Office Visit [address] [phone] Ronna Lopez FNP [address] [place] [address] 03/25/2025 10:00 AM EDT Clinical Support [address] [phone] Felicia Mcdermott RN [address] [place] [address] documented as of this encounter Visit Diagnoses Diagnosis Primary hypertension Unspecified essential hypertension documented in this encounter Additional Health Concerns Assessment Noted Time PHQ-9 Depression Total Score: 4 02/03/20 23 9:35 AM EDT documented as of this encounter Care Teams Epic [employer] Specialists Relationship Specialty Start Date End Date Ronna Lopez FNP [address] [place] [address] PCP - General Family Medicine 09/02/24 Felicia Mcdermott, BETSY [address] [place] [address] Rating Specialist 05/24/23 Reina Shen [address] [place] [address] [facility] 08/30/23 documented as of this encounter
--- OUTSIDE RECORDS SUMMARY | 2024-10-28 10:02 | XMS_ITS | Encounter Summary ---
Author Organization [employer] Address [address] [facility] 7t [place] [address] Care Team Providers Care Quality Control Systems Manager Name Role Phone Jo AnnYnes ADMINISTRATIVE UNDERWRITER Primary Care Provider [phone] Felicia Mcdermott RN Unavailable Reina Shen Unavailable Ronna Lopez ADMINISTRATIVE UNDERWRITER Primary Care Provider [phone] Encounter Details Date Type Department Care Team (Late st Contact Info) Description 01/10/2024 Orders Only [facility] Information Management [address] [place], [place] [phone] Provider, Not In System Social History Tobacco [...] the past 12 months, has t he [employer], gas, oil or water company threatened to [...] Description 12/02/2024 12:40 PM EDT Office Visit [address] [phone] Ronna Lopez FNP [address] [place] [address] 03/25/2025 10:00 AM EDT Clinical Support [address] [phone] Felicia Mcdermott RN [address] [place] [phone] documented as of this encounter Procedures Procedure [...] documented as of this encounter Care Teams Quality Control Systems Manager Relationship Specialty Start Date End Date Ynes Cherry FNP PCP - General Family Medicine 02/02/23 09/01/24 Ronna Lopez FNP [address] [place] [address] PCP - General Family Medicine 09/02/24 Felicia Mcdermott, RN [address] [place] [address] Cat Scan Technologist 05/24/23 Reina Shen [address] [place] [address] [facility] 08/30/23 documented as of this encounter
--- OUTSIDE RECORDS SUMMARY | 2024-10-28 10:02 | XMS_ITS | Encounter Summary ---
Author Organization [employer] Address [address] [facility] 7t [place] [address] Care Team Providers Care Quill Winder Name Role Phone Ynes Cherry Primary Care Provider [phone] Felicia Mcdermott RN Unavailable Reina Shen Unavailable Ronna Lopez [employer]ER Primary Care Provider [phone] Encounter Details Date Type Department Care Team (Late st Contact Info) Description 06/09/2023 Abstract [facility] [address] [place] [address] Ynes Cherry FNP [address] [place] [address] [phone] Social History Tobacco Use Types Packs/Day Years [...] Description 12/02/2024 12:40 PM EDT Office Visit [address] [phone] Ronna Lopez FNP [address] [place], [place] [phone] 03/25/2025 10:00 AM EDT Clinical Support [address] [phone] Felicia Mcdermott RN [address] [place] [address] documented as of this encounter Visit Diagnoses Not on filedocumented in this encounter Additional Health Concerns Assessment Noted Time PHQ-9 Depression Total Score: 4 02/03/20 23 9:35 AM EDT documented as of this encounter Care Teams Quill Winder Relationship Specialty Start Date End Date Ynes Cherry FNP PCP - General Family Medicine 02/02/23 09/01/24 Ronna Lopez FNP [address] [place] [address] PCP - General Family Medicine 09/02/24 Felicia Mcdermott, RN [address] [place] [address] [employer] Principal Solution Specialist 05/24/23 Reina Shen [address] [place] [address] [facility] 08/30/23 documented as of this encounter
--- OUTSIDE RECORDS SUMMARY | 2024-10-28 10:02 | XMS_ITS | Encounter Summary ---
Author Organization [employer] Address [address] [facility] 7t [place] [address] Care Team Providers Care Emergency Vehicle Dispatcher Name Role Phone Ynes Cherry Primary Care Provider [phone] Felicia Mcdermott RN Unavailable Reina Shen Unavailable Ronna Lopez INTERNETWORKING TECHNICIAN Primary Care Provider [phone] Encounter Details Date Type Department Care Team (Late st Contact Info) Description 02/06/2023 Telephone [facility] [address] [place] [address] Ynes Cherry FNP [address] [place] [address] [phone] Social History Tobacco Use Types Packs/Day Years [...] Description 12/02/2024 12:40 PM EDT Office Visit [address] [address] Ronna Lopez FNP [address] [place] [address] 03/25/2025 10:00 AM EDT Clinical Support [address] [address] Felicia Mcdermott RN [address] [place] [address] documented as of this encounter Visit Diagnoses Not on filedocumented in this encounter Additional Health Concerns Assessment Noted Time PHQ-9 Depression Total Score: 4 02/03/20 23 9:35 AM EDT documented as of this encounter Care Teams Emergency Vehicle Dispatcher Relationship Specialty Start Date End Date Ynes Cherry FNP PCP - General Family Medicine 02/02/23 09/01/24 Ronna Lopez FNP [address] [place] [address] PCP - General Family Medicine 09/02/24 Felicia Mcdermott, RN [address] [place] [address] Hostess 05/24/23 Reina Shen [address] [place] [address] [facility] 08/30/23 documented as of this encounter
--- OUTSIDE RECORDS SUMMARY | 2024-10-28 10:02 | XMS_ITS | Encounter Summary ---
Author Organization [employer] Address [address] [facility] 7t [place] [address] Care Team Providers Care Forensic Science Examiner Name Role Phone Ynes Cherry Primary Care Provider [phone] Felicia Mcdermott RN Unavailable Reina Shen Unavailable Ronna Lopez SPEECH AND LANGUAGE CLINICIAN Primary Care Provider [phone] Encounter Details Date Type Department Care Team (Late st Contact Info) Description 06/09/2023 Abstract [facility] [address] [place] [address] Ynes Cherry FNP [address] [place] [address] [phone] Social History Tobacco Use Types Packs/Day Years [...] 12/02/2024 12:40 PM EDT Office Visit [address] [address] Ronna Lopez FNP [address] [place], [place] [phone] 03/25/2025 10:00 AM EDT Clinical Support [address] [address] Felicia Mcdermott RN [address] [place] [address] documented as of this encounter Visit Diagnoses Not on filedocumented in this encounter Additional Health Concerns Assessment Noted Time PHQ-9 Depression Total Score: 4 02/03/20 23 9:35 AM EDT documented as of this encounter Care Teams Forensic Science Examiner Relationship Specialty Start Date End Date Ynes Cherry FNP PCP - General Family Medicine 02/02/23 09/01/24 Ronna Lopez FNP [address] [place] [address] PCP - General Family Medicine 09/02/24 Felicia Mcdermott, RN [address] [place] [address] Virology Teacher 05/24/23 Reina Shen [address] [place] [address] [facility] 08/30/23 documented as of this encounter
== END 2024-10-28 10:19 | disposition home or self-care (01) ==
PROVIDERS: PCP Internal Medicine; Visit Provider Physician Assistant
DX: S42.301A Unspecified fracture of shaft of humerus, right arm, initial encounter for closed fracture (principal); W00.0XXA Fall on same level due to ice and snow, initial encounter
CPT/HCPCS: 99203; G2211

== ENCOUNTER → 2024-10-28 09:17 | Outpatient (BNV) | payer MEDICARE, MEDICAID, SELFPAY | PROVIDERS: Visit Provider Radiology Diagnostic Radiology | DX: M25.511 Pain in right shoulder (principal) | CPT/HCPCS: 73030 ==

== ENCOUNTER 2024-11-04 09:13 | Outpatient (REF) | payer MEDICARE, MEDICAID, SELFPAY ==
--- NOTE | ~2024-11-04 | XR_ITS ---
EXAMINATION: XR HUMERUS, RIGHT CLINICAL INFORMATION: S42.301A - Unspecified fracture of shaft of humerus, right arm, initial ... COMPARISON: October 28, 2024. TECHNIQUE: AP and lateral views of the right humerus. FINDINGS: Transverse oriented displaced fracture mid diaphysis of the right humerus. No foreign gas cast. No callus formation. XR/XR humerus RT IMPRESSION: No healing displaced fracture, mid diaphysis right humerus. Electronically signed by: Zafar Bradshaw MD 11/05/2024 09:34 AM EDT
--- OUTSIDE RECORDS SUMMARY | 2024-11-04 09:51 | XMS_ITS | Encounter Summary ---
Author Organization [employer] Address [address] [facility] 7t [place] [address] Care Team Providers Care Topographical Field Assistant Name Role Phone Ynes Cherry Primary Care Provider [phone] Felicia Mcdermott RN Unavailable Reina Shen Unavailable Ronna Lopez EMPLOYEE TRAINING SPECIALIST Primary Care Provider [phone] Encounter Details Date Type Department Care Team (Late st Contact Info) Description 02/06/2023 Telephone [facility] [address] [place] [address] Ynes Cherry FNP [address] [place] [address] [phone] Social History Tobacco Use Types Packs/Day Years [...] 12/02/2024 12:40 PM EDT Office Visit [address] [address] Ronna Lopez FNP [address] [place] [address] 03/25/2025 10:00 AM EDT Clinical Support [address] [address] Felicia Mcdermott RN [address] [place] [address] documented as of this encounter Visit Diagnoses Not on filedocumented in this encounter Additional Health Concerns Assessment Noted Time PHQ-9 Depression Total Score: 4 02/03/20 23 9:35 AM EDT documented as of this encounter Care Teams Topographical Field Assistant Relationship Specialty Start Date End Date Ynes Cherry FNP PCP - General Family Medicine 02/02/23 09/01/24 Ronna Lopez FNP [address] [place] [address] PCP - General Family Medicine 09/02/24 Felicia Mcdermott, RN [address] [place] [address] Rn Neurology 05/24/23 Reina Shen [address] [place] [address] [facility] 08/30/23 documented as of this encounter
--- OUTSIDE RECORDS SUMMARY | 2024-11-04 09:51 | XMS_ITS | Encounter Summary ---
Author Organization [employer] Address [address] [facility] 7t [place] [address] Care Team Providers Care Block Bolter Mule Operator Name Role Phone Ynes Cherry Primary Care Provider [phone] Felicia Mcdermott RN Unavailable Reina Shen Unavailable Ronna Lopez [employer] Primary Care Provider [phone] Encounter Details Date Type Department Care Team (Late st Contact Info) Description 06/09/2023 Abstract [facility] [address] [place] [address] Ynes Cherry FNP [address] [place] [address] [phone] Social History Tobacco Use Types Packs/Day Years [...] Description 12/02/2024 12:40 PM EDT Office Visit [address] [address] Ronna Lopez FNP [address] [place], [place] [phone] 03/25/2025 10:00 AM EDT Clinical Support [address] [address] Felicia Mcdermott RN [address] [place] [address] documented as of this encounter Visit Diagnoses Not on filedocumented in this encounter Additional Health Concerns Assessment Noted Time PHQ-9 Depression Total Score: 4 02/03/20 23 9:35 AM EDT documented as of this encounter Care Teams Block Bolter Mule Operator Relationship Specialty Start Date End Date Ynes Cherry FNP PCP - General Family Medicine 02/02/23 09/01/24 Ronna Lopez FNP [address] [place] [address] PCP - General Family Medicine 09/02/24 Felicia Mcdermott, RN [address] [place] [address] Bolt Maker 05/24/23 Reina Shen [address] [place] [address] [facility] 08/30/23 documented as of this encounter
--- OUTSIDE RECORDS SUMMARY | 2024-11-04 09:51 | XMS_ITS | Encounter Summary ---
Author Organization [employer] Address [address] [facility] 7t [place] [address] Care Team Providers Care Offset Lithographic Press Setter Name Role Phone Ynes Cherry Primary Care Provider [phone] Felicia Mcdermott RN Unavailable Reina Shen Unavailable Ronna Lopez POWER SYSTEM DISPATCHER Primary Care Provider [phone] Reason for Visit * Reason Comments Med Refill Encounter Details Date Type Department Care Team (Late st Contact Info) Description 06/11/2024 Refill [facility] [address] [place] [address] Ynes Cherry FNP [address] [place] [address] Social History Tobacco Use Types Packs/Day [...] Center 09/17/2024 10:00 AM Felicia Mcdermott RN [facility] Comments: documented in this encounter Plan of Treatment Upcoming Encounters Date Type Department Care Team (Late st Contact Info) Description 12/02/2024 12:40 PM EDT Office Visit [address] [address] Ronna Lopez FNP [address] [place] [address] 03/25/2025 10:00 AM EDT Clinical Support [address] [address] Felicia Mcdermott RN [address] [place] [address] documented as of this encounter Visit Diagnoses Not on filedocumented in this encounter Additional Health Concerns Assessment Noted Time PHQ-9 Depression Total Score: 4 02/03/20 23 9:35 AM EDT documented as of this encounter Care Teams Offset Lithographic Press Setter Relationship Specialty Start Date End Date Ynes Cherry FNP PCP - General Family Medicine 02/02/23 09/01/24 Ronna Lopez FNP [address] [place] [address] PCP - General Family Medicine 09/02/24 Felicia Mcdermott, BETSY [address] [place] [address] Grinding Machine Operator 05/24/23 Reina Shen [address] [place] [address] [facility] 08/30/23 documented as of this encounter
--- OUTSIDE RECORDS SUMMARY | 2024-11-04 09:51 | XMS_ITS | Encounter Summary ---
Author Organization [employer] Address 75 [facility] 7t [place] [address] Care Team Providers Care Bench Examiner Name Role Phone Ynes Cherry Primary Care Provider [phone] Felicia Mcdermott RN Unavailable Reina Shen Unavailable Ronna Lopez AUDITOR SUPERVISOR Primary Care Provider [phone] Encounter Details Date Type Department Care Team (Late st Contact Info) Description 06/09/[address] [facility] [address] [place] [address] Ynes Cherry FNP [address] [place] [address] [phone] Social History Tobacco Use Types Packs/Day Years [...] 12/02/2024 12:40 PM EDT Office Visit [address] [address] Ronna Lopez FNP [address] [place], [place] [phone] 03/25/2025 10:00 AM EDT Clinical Support [address] [address] Felicia Mcdermott RN [address] [place] [address] documented as of this encounter Visit Diagnoses Not on filedocumented in this encounter Additional Health Concerns Assessment Noted Time PHQ-9 Depression Total Score: 4 02/03/20 23 9:35 AM EDT documented as of this encounter Care Teams Bench Examiner Relationship Specialty Start Date End Date Ynes Cherry FNP PCP - General Family Medicine 02/02/23 09/01/24 Ronna Lopez FNP [address] [place] [address] PCP - General Family Medicine 09/02/24 Felicia Mcdermott, RN [address] [place] [address] Technical Instructor 05/24/23 Reina Shen [address] [place] [address] [facility] 08/30/23 documented as of this encounter
--- OUTSIDE RECORDS SUMMARY | 2024-11-04 09:51 | XMS_ITS | Encounter Summary ---
Author Organization [facility] [employer] [facility] Address [address] [place] [address] 7 [place] [address] Care Team Providers Care Principal System Software Engineer Name Role Phone Deedee Chappell MD Primary Care Provider Terri Bennett [facility] Primary Care Provider Unavail able [place] Unassigned Primary Care Provider U Ynes Bower DIMENSION MILL WORKER Primary Care Provider [phone] Ynes Cherry [facility] Primary Care Provider [phone] Felicia Mcdermott RN Unavailable Reina Shen Unavailable Ronna Lopez [facility] Primary Care Provider Encounter Details Date Type Department Care Team (Late st Contact Info) Description 07/18/[address] [phone] Deedee Chappell MD [address] [place] [address] Social History Tobacco Use Types Packs/Day Years [...] Description 12/02/2024 12:40 PM EDT Office Visit [address] [phone] Ronna Lopez FNP [address] [place] [address] 03/25/2025 10:00 AM EDT Clinical Support [address] [phone] Felicia Mcdermott, RN [address] [place] [address] documented as of this encounter Visit Diagnoses Not on filedocumented in this encounter Care Teams Principal System Software Engineer Relationship Specialty Start Date End Date Deedee Chappell MD [address] [place] [address] PCP - General Family Medicine 07/18/22 08/08/22 Terri Bennett FNP [address] [place] [address] PCP - General Family Medicine 08/09/22 12/05/22 King Cameron Unassigned PCP - General Family Medicine 12/06/22 12/20/22 Ynes Cherry FNP PCP - General Family Medicine 12/21/22 12/21/22 Ynes Cherry FNP PCP - General Family Medicine 02/02/23 09/01/24 Ronna Lopez FNP [address] [place] [address] PCP - General Family Medicine 09/02/24 Felicia Mcdermott, RN [address] [place] [address] Roast Master 05/24/23 Reina Shen [address] [place] [address] [facility] 08/30/23 documented as of this encounter
--- OUTSIDE RECORDS SUMMARY | 2024-11-04 09:51 | XMS_ITS | Encounter Summary ---
Author Organization [employer] Address [address] [facility] 7t [place] [address] Care Team Providers Care Disintegrator Feeder Name Role Phone Jo AnnYnes RADIO MECHANIC Primary Care Provider [phone] Felicia Mcdermott RN Unavailable Reina Shen Unavailable Ronna Lopez RADIO MECHANIC Primary Care Provider [phone] Encounter Details Date Type Department Care Team (Late st Contact Info) Description 01/10/2024 Orders Only [facility] Information Management [address] [place], [place] [phone] Provider, Not In System Social History Tobacco [...] the past 12 months, has t he [employer], gas, oil or water company threatened to [...] 12/02/2024 12:40 PM EDT Office Visit [address] [address] Ronna Lopez FNP [address] [place] [address] 03/25/2025 10:00 AM EDT Clinical Support [address] [address] Felicia Mcdermott RN [address] [place] [address] documented as of this encounter Procedures Procedure [...] documented as of this encounter Care Teams Disintegrator Feeder Relationship Specialty Start Date End Date Ynes Cherry FNP PCP - General Family Medicine 02/02/23 09/01/24 Ronna Lopez FNP [address] [place] [address] PCP - General Family Medicine 09/02/24 Felicia Mcdermott, RN [address] [place] [address] Radio Interference Expert 05/24/23 Reina Shen [address] [place] [address] [facility] 08/30/23 documented as of this encounter
--- OUTSIDE RECORDS SUMMARY | 2024-11-04 09:51 | XMS_ITS | Clinical Summary ---
Author Organization [employer] Address [address] [place] [address] [address] [place] [address] Care Team Providers Care Motor Coach Chauffeur Name Role Phone Felicia Mcdermott RN Unavailable Reina Shen Unavailable Ronna Lopez Primary Care Provider [phone] Allergies Active Allergy Reactions Criticality Noted Date Comments Codeine Nausea And Vomiting Low 08/19/2013 Other reaction(s): Nausea, Vomiting, Diarrhea Oxycodone-Acetaminoph en Nausea And Vomiting Low 08/19/2013 Other reaction(s): Nausea, Vomiting, Diarrhea Medications hydrOXYzine HCl (Atarax) 25 MG tabletIndications: Schizoaffective disorder, depressive type ([facility]) 3 Active QUEtiapine (SEROquel) 100 MG tabletIndications: Schizoaffective disorder, depressive type ([facility]) 3 Active FreeStyle lancetsIndications :Type 2 diabetes mellitus with diabetic neuropathy, with long-term current use of insulin ([facility]) 1 each by Other route 4 times daily. 400 each 3 3 Active glucose blood (FREESTYLE LITE) test stripIndications:T ype 2 diabetes mellitus with diabetic neuropathy, with long-term current use of insulin ([facility]) 1 each by Other route 2 times daily. 400 each 3 3 Active lurasidone (Latuda) 60 MG tablet TAKE 1 TABLET BY MOUTH AT BEDTIME WITH FOOD 3 Active insulin degludec (Tresiba FlexTouch) 100 UNIT/ML injectionIndicatio ns:Type 2 diabetes mellitus with diabetic neuropathy, with long-term current use of insulin ([facility]) ADMINISTER UP TO 78 UNITS UNDER THE SKIN DAILY IN THE MORNING 70 mL 3 4 Active metFORMIN XR (Glucophage-XR) 500 MG 24 hr tabletIndications: Type 2 diabetes mellitus with diabetic neuropathy, with long-term current use of insulin ([facility]) 500mg tabs, 2 tabs twice daily 360 tablet 3 4 Active cholecalciferol (Vitamin D-3) 25 MCG (1000 UT) capsuleIndications :Vitamin D deficiency Take 1 capsule (25 mcg) by mouth Once per day. 90 capsule 3 4 Active empagliflozin (Jardiance) 25 MGIndications:Type 2 diabetes mellitus with other specified complication, unspecified whether custodial insulin use ([facility]) TAKE 1 TABLET(25 MG) BY MOUTH IN THE MORNING 90 tablet 3 4 Active insulin aspart (NovoLOG FLEXPEN) 100 UNIT/ML penIndications:Typ e 2 diabetes mellitus with diabetic neuropathy, with long-term current use of insulin ([facility]) Sliding scale inject under the skin. Sliding scale with meals 70-110 none 111-150 2U 151-200 4 201-250 6 251-300 8 301-350 10 351-400 12 30 mL 11 4 Active insulin aspart, with niacinamide, (Fiasp) 100 UNIT/ML injectionIndicatio ns:Type 2 diabetes mellitus with diabetic neuropathy, with long-term current use of insulin ([facility]) Inject subcutaneously - Sliding scale TID with meals 70-110: none 111-150: 2U 151-200: 4U 201-250: 6U 251-300: 8U 301-350: 10U 351-400: 12U 30 mL 3 4 Active BD Pen Needle Nia 2nd Gen 32G X 4 MM miscIndications:Ty pe 2 diabetes mellitus with diabetic neuropathy, with long-term current use of insulin ([facility]) USE TO INJECT 4 TIMES DAILY 400 each 3 4 Active lisinopril 5 MG tabletIndications: Primary hypertension Take 1 tablet (5 mg) by mouth Once per day. 90 tablet 3 5 Active rosuvastatin (Crestor) 10 MG tabletIndications: Type 2 diabetes mellitus with diabetic neuropathy, with long-term current use of insulin ([facility]),Hyperlip idemia, unspecified hyperlipidemia type TAKE 1 TABLET(10 MG) BY MOUTH DAILY 90 tablet 3 5 Active Ozempic, 1 MG/DOSE, 4 MG/3ML solution pen-injector INJECT 1MG SUBCUT ONCE WEEKLY 3 mL 1 5 Active Active Problems Problem Noted Date Diagnosed Date [...] major depressive disorder, without psychotic features 03/20/2020 [facility] current use of oral hypoglycemic drug 03/20/2020 Overview (07/18/2022): Note: Unchanged Menopausal state 11/27/2018 Hypertension 03/31/2016 Vitamin D deficiency 10/21/2013 Cervicalgia 05/20/2013 Overview (07/18/2022): Note: degenerative disc dx at c5-6 and c6-7 Fatty liver 11/15/2012 Hyperlipidemia 05/08/2012 Absence of both cervix and uterus, 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 Encounters Date Type Department Care Team Description 10/02/[address] [phone] Ronna Lopez FNP 10/02/[address] [phone] Ynes Cherry FNP Type 2 diabetes mellitus with diabetic neuropathy, with long-term current use of insulin ([facility]); Hyperlipidemia, unspecified hyperlipidemia type 09/30/[address] [phone] Ronna Lopez FNP Primary hypertension 09/29/[address] [address] Ynes Cherry FNP Primary hypertension 09/17/2024 10:00 AM EST Clinical Support [address] [phone] Felicia Mcdermott, RN Type 2 diabetes mellitus with diabetic neuropathy, with long-term current use of insulin ([facility]) 09/03/[address] [phone] Ynes Cherry FNP 09/02/2024 12:40 PM EST Office Visit [address] [phone] Ronna Lopez, KERVIN Cerumen debris on tympanic membrane of both ears (Primary Dx); Type 2 diabetes mellitus with diabetic neuropathy, with long-term current use of insulin ([facility]) from Last 3 Months Immunizations Name Administration Dates Next Due Influenza Injectable Quadriv alant Preservative Free IIV4 MDCK 06/21/2018 Influenza injectable quadriv alent IIV4 with preservative 06/08/2016 Influenza injectable quadriv alent preservative free 04/19/2023,04/20/2022,05/11/2021,04/16,05/29/2017 Influenza, IIV3, injectable 06/03/2014 Influenza, Unspecified 06/18/2020,05/29/2017 Influenza, seasonal, injecta ble, preservative free 06/21/2018 Moderna Covid-19 Vaccine 12+ 07/31/2021,12/05/19,11/06/2020 Moderna Covid-19 Vaccine 6+ Bivalent 04/29/2022 Pneumococcal [...] Cigarettes Q uit: 2010 Smokeless Tobacco: Never Tobacco Cessation:Counseling Given: Yes [...] Description 12/02/2024 12:40 PM EDT Office Visit [address] [phone] Ronna Lopez FNP [address] [place] [phone] 03/25/2025 10:00 AM EDT Clinical Support [address] [phone] Felicia Mcdermott, BETSY [address] [place] [phone] Health Maintenance Due Date Last Done Comments CT Colonography 1958 FIT DNA/Cologuard 1960 Sigmoidoscopy 1960 Hepatitis A Vaccines (1 of 2 - Risk 2-dose series) 1977 Hepatitis B Vaccines (1 of 3 - Risk 3-dose series) 2018 RSV Patients and Patients Aged 60 years or older (1 - Risk 60-74 years 1-dose series) 2018 FOBT 04/04/2024 04/04/2023, 090 09/2021, 04/21/2021, Additional history exists COVID-19 Vaccine () 04/28/2024 04/29/2022, 07/31/2021, 12/04/2020, Additional history exists Colorectal Cancer Screening 04/29/2024 FIT 04/29/2024 Diabetes: Foot Exam 09/06/2024 09/06/2023, 09/06/2023, 09/06/2023, Additional history exists Mammogram 01/04/2025 01/05/2024, 01/05/2024 Alcohol/Substance Use Screening 01/09/2025 01/10/2024 Diabetes: Hemoglobin A1C 03/17/2025 025, 05/22/2024, 02/21/2024, Additional history exists Diabetes: Urine Protein Screening 05/22/2025 05/22/2024, 12/05/2023, 05/24/2023, Additional history exists Eye Exam 06/13/2025 06/13/2023, 03/28/2022 Depression Screening 09/02/2025 09/02/2024, 02/03/20 SDOH Screening 09/02/2025 09/02/2024 Tobacco Screening 09/02/2025 [...] neuropathy, with long-term current use of insulin ([facility]) COMPREHENSIVE METABOLIC PANEL Routine 09/17/2024 10:21 AM EST Type 2 diabetes mellitus with diabetic neuropathy, with long-term current use of insulin (CMS/HCC) VITAMIN B12 Routine 09/17/2024 10:21 AM EST Type 2 diabetes mellitus with diabetic neuropathy, with long-term current use of insulin (CMS/HCC) CBC WITH AUTO DIFFERENTIAL Routine 09/17/2024 10:21 AM EST Type 2 diabetes mellitus with diabetic neuropathy, with long-term current use of insulin (CMS/HCC) HEMOGLOBIN A1C WITH MPG Routine 09/17/2024 10:21 AM EST Type 2 diabetes mellitus with diabetic neuropathy, with long-term current use of insulin (CMS/HCC) ALBUMIN, RANDOM URINE W/CREATININE Routine 05/22/2024 11:41 AM EDT Diabetes mellitus without complication (CMS/HCC) BI MAMMOGRAM SCREENING TOMOSYNTHESIS BILATERAL Routine 01/05/2024 2:20 PM EDT DIABETES EYE EXAM Routine 06/13/2023 OCCULT BLOOD, FECAL, IMMUNOASSAY Routine 04/04/2023 9:25 AM EDT Encounter for screening for malignant neoplasm of colon COLONOSCOPY Routine 04/29/2022 HEPATITIS C ANTIBODY Routine 02/11/2019 from Last 3 Months or Most Recently Relevant to Health Maintenance Results * (ABNORMAL) Lipid Panel with Reflex to Direct LDL (09/17/2024 10:21 AM EST) Pathologist [facility] Cholesterol, Total 119 <200 mg/dL [facility] [place] [facility] HDL Cholesterol 38(L) > OR = 50 mg/dL [facility] [place] [facility] Triglycerides 263(H) <150 mg/dL [facility] [place] [facility] Comment: If a non-fasting specimen was collected, consider repeat triglyceride testing on a fasting specimen if clinically indicated. Chema et al. J. of Clin. Lipidol. 2015;9:129-169. LDL Cholesterol 50 mg/dL [facility] American Board of Addiction Medicine (ABAM) Comment: Reference range: <100 Desirable range <100 mg/dL for primary prevention; ?? <70 mg/dL for patients with CHD or diabetic patients with > or = 2 CHD risk factors. LDL-C is now calculated using the Elizabet calculation, which is a validated novel method providing better accuracy than the Friedewald equation in the estimation of LDL-C. Shahram SS et al. ARIANE. 2013;310(19): 0673-9902 (http://education.TableGrabber/faq/KDV505) Chol/HDLC Ratio 3.1 <5.0 (calc) [facility] Non-HDL Cholesterol 81 <130 mg/dL [facility] Comment: For patients with diabetes plus 1 major ASCVD risk factor, treating to a non-HDL-C goal of <100 mg/dL (LDL-C of <70 mg/dL) is considered a therapeutic option. Blood 09/17/2024 10:2 1 AM EST 09/17/2024 10:22 AM EST Narrative [facility] - 09/17/2024 9:57 PM EST FASTING:NO FASTING: NO Ronna Lopez [facility] LAB BLOOD ORDERABLES Final Resul t [facility] [address], [place] [address] [facility] [address] [place] [address] * (ABNORMAL) Hemoglobin A1c with Calculated Mean Plasma Glucose (MPG) (09/17/2024 10:21 AM EST) Hemoglobin A1c 5.8(H) <5.7 % of total Hgb [facility] Comment: For someone without known diabetes, a [...] children. Mean Plasma Glucose 129 mg/dL (calc) [facility] 09/17/2024 10:2 1 AM EST 09/17/2024 10:22 AM EST Narrative [facility] - 09/17/2024 9:57 PM EST FASTING:NO FASTING: NO Ronna Lopez [facility] LAB BLOOD ORDERABLES Final Resul t [facility] [address], [place] [address] [facility] [place] [facility] [address] [place] [address] * (ABNORMAL) CBC auto differential (09/17/2024 10:21 AM EST) White Blood Cell Count 9.5 3.8 - 10.8 Thousand/ uL [facility] [place] [facility] Red Blood Cell Count 4.77 3.80 - 5.10 Million/u L [facility] [place] [facility] Hemoglobin 14.1 11.7 - 15.5 g/dL [facility] Hematocrit 43.0 35.0 - 45.0 % [facility] MCV 90.1 80.0 - 100.0 fL [facility] [place] [facility] MCH 29.6 27.0 - 33.0 pg [facility] [place] [facility] MCHC 32.8 32.0 - 36.0 g/dL [facility] [place] [facility] Comment: For adults, a slight decrease in the calculated MCHC value (in the range of 30 to 32 g/dL) is most likely not clinically significant; however, it should be interpreted with caution in correlation with other red cell parameters and the patient's clinical condition. RDW 13.1 11.0 - 15.0 % [employer] Platelet Count 372 140 - 400 Thousand/ uL [facility] [place] [facility] MPV 10.6 7.5 - 12.5 fL [facility] [place] [facility] Absolute Neutrophils 5,928 1,500 - 7,800 cells/uL [facility] Lymphocytes 2,394 850 - 3,900 cells/uL [facility] Absolute Monocytes 447 200 - 950 cells/uL [facility] Absolute Eosinophils 627(H) 15 - 500 cells/uL [facility] Absolute Basophils 105 0 - 200 cells/uL [facility] Neutrophils 62.4 % [facility] Lymphocytes 25.2 % [facility] Monocytes 4.7 % [facility] Eosinophils 6.6 % [facility] Basophils 1.1 % [facility] Blood Venous blood specimen / Unknown 09/17/2024 10:21 AM EST 09/17/2024 10:22 AM EST Narrative [facility] - 09/17/2024 9:57 PM EST FASTING:NO FASTING: NO Ronna Lopez [facility] LAB BLOOD ORDERABLES Final Resul t [facility] [address], [place] [address] [facility] [address] [place] [address] * Vitamin B12 (09/17/2024 10:21 AM EST) Vitamin B12 322 200 - 1,100 pg/mL [facility] Comment: Please Note: Although the reference range [...] PM EST FASTING:NO FASTING: NO Ronna Lopez [facility] LAB BLOOD ORDERABLES Final Resul t [facility] [address], [place] [address] [facility] [place] [facility] [address] [place] [address] * (ABNORMAL) Comprehensive Metabolic Panel (09/17/2024 10:21 AM EST) Glucose 174(H) 65 - 139 mg/dL [facility] Comment: ? Non-fasting reference interval Urea Nitrogen (BUN) 12 7 - 25 mg/dL [facility] [place] [facility] Creatinine, Serum 0.91 0.50 - 1.05 mg/dL [facility] [place] [facility] eGFR 70 > OR = 60 mL/min/1. 73m2 [facility] [place] [facility] BUN/Creatinine Ratio SEE NOTE: 6 - (calc) [facility] Comment: ?? Not Reported: BUN and Creatinine are within ?? reference range. ? Sodium 140 135 - 146 mmol/L [facility] Potassium 4.3 3.5 - 5.3 mmol/L [facility] Chloride 104 98 - 110 mmol/L [facility] Carbon Dioxide 23 20 - 32 mmol/L [facility] Calcium 9.5 8.6 - 10.4 mg/dL [facility] Protein, Total 6.9 6.1 - 8.1 g/dL [facility] Albumin 4.3 3.6 - 5.1 g/dL [facility] Globulin 2.6 1.9 - 3.7 g/dL (calc) [facility] Albumin/Globuli n Ratio 1.7 1.0 - 2.5 (calc) [facility] Bilirubin, Total 0.3 0.2 - 1.2 mg/dL [facility] [place] [facility] Alkaline Phosphatase 46 37 - 153 U/L [facility] [place] [facility] AST 17 10 - 35 U/L [facility] ALT 18 6 - 29 U/L [facility] Blood Venous blood specimen / Unknown 09/17/2024 10:21 AM EST 09/17/2024 10:22 AM EST Narrative [facility] - 09/17/2024 9:57 PM EST FASTING:NO FASTING: NO us Ronna John CURING PRESS OPERATOR LAB BLOOD ORDERABLES Final Resul t Performing Organization Address [facility] de Phone Number [address], [facility] [place] [address] [facility] [place] [facility] [address] [place] [address] * Albumin, Random Urine W/Creatinine (05/22/2024 11:41 AM EDT) Creatinine, Random Urine 91 20 - 275 mg/dL [facility] Albumin, Urine 0.9 See Note: mg/dL [facility] Comment: Reference Range: Reference Range Not established Albumin/Creatinin e Ratio, Random Urine 10 <30 mg/g creat [facility] Comment: The ADA defines abnormalities in albumin [...] 05/23/2024 8:07 PM EDT FASTING:NO FASTING: NO us Ynes Cherry CURING PRESS OPERATOR LAB URINE ORDERABLES Final Res ult Performing Organization Address [facility]/ZIP Co de Phone Number [facility] [address], [place] [address] [facility] [address] [place] [phone] * BI Mammogram Screening Tomosynthesis Bilateral (01/05/2024 [...] (Benign) Lay letter mailed to patient WSN: [id number] Ordering Physician: Ynes Cherry Dictated By: ?Juwan Romano MD Dictated Date/Time: ?01/05/24 4:58 pm Reviewed By: ?Juwan Romano MD Signed By: ? Juwan Romano MD Signed Date/Time: ? 01/05/24 4:58 pm Transcribed By: ? CSB Rate Examiner Date/Time: ? 01/05/24 4:54 pm Birads: Procedure Note Donareli, Wendy - 01/05/2024 PROCEDURE: MM Digital Mammo Screening [...] (Benign) Lay letter mailed to patient WSN: [id number] Ordering Physician: Ynes Cherry Dictated By: Juwan Romano MD Dictated Date/Time: 01/05/24 4:58 pm Reviewed By: Juwan Romano MD Signed By: Juwan Romano MD Signed Date/Time: 01/05/24 4:58 pm Transcribed By: SHANA Rate Examiner Date/Time: 01/05/24 4:54 pm Birads: Ynes [facility] IMG BI PROCEDURES Final Result * Hm Diabetes Eye Exam (06/13/2023) Eye Exam Normal Normal Comment:REPEAT EYE EXAMIN 1 MONTH Historical Provider HEALTH MAINTENANCE Final Result * Occult Blood, Fecal, Immunoassay (04/04/2023 9:25 AM EDT) Fecal Occult Blood, Immunochemical (FIT) NEGATIVE (NEG) [facility] Comment: Testing performed or reported by [facility], a Service of [facility], [address] [place] [address] King Hamm MD, Oil Rig Driller [facility]# [id number] 04/04/2023 9:25 AM EDT 04/10/2023 9:31 AM EDT Y[facility] LAB BODY FLUIDS AND STOOLS ORD ERABLES Final Result [facility] [address] [place] [address] * Colonoscopy (04/29/2022) Colonoscopy FIT NEGATIVE Historical Provider HEALTH MAINTENANCE Final Result * Hepatitis C Antibody (02/11/2019) Hepatitis C Antibody Nonreactive Blood Historical Provider HEALTH MAINTENANCE Final Result from Last 3 Months or Most Recently Relevant to Health Maintenance Insurance [facility] * Guarantor: Matilde Ferrer Account Type Relation to Patient Date of Phone Billing Address Dental Self Care Teams Motor Coach Chauffeur Relationship Specialty Start Date End Date Ronna Lopez FNP [address] [place] [address] PCP - General Family Medicine 09/02/24 Felicia Mcdermott RN [address] [place] [address] Quality Control Director 05/24/23 Reina Shen [address] [place] [address] [facility] 08/30/23
== END 2024-11-04 09:14 | disposition home or self-care (01) ==
LOC: HO.HOSX 09:13
PROVIDERS: Visit Provider Physician Assistant
DX: S42.301A Unspecified fracture of shaft of humerus, right arm, initial encounter for closed fracture (principal)
CPT/HCPCS: 73060; 99212

== ENCOUNTER 2024-11-04 11:06 | Outpatient (AMB) | payer MEDICARE, MEDICAID, SELFPAY ==
--- NOTE | 2024-11-04 11:33 | MHC.OFFVIS ---
Intake Visit Reasons: OV Rt shoulder humerus shaft fx-brace check-W/XR Intake Note: Matilde is a 63 year old right hand dominant female who presents today a follow up of RT humerus fracture, DOI 10/15/24. Patient reports a lot of discomfort with brace and is digging into her arm. She has tried adjusting brace however this has not helped. Her current pain level is a 7 out of 10. Allergies No Known Allergies Allergy (Verified 11/04/24 11:35) Medication List - Last Reconciled 11/04/24 by Ruben Solomon PA-C acetaminophen 500 mg PO Q6H PRN aripiprazole 5 mg PO DAILY bisacodyl 10 mg AL DAILY PRN dextrose 40% (Glutose-45) 10 grams PO Q15M PRN glucagon (GlucaGen HypoKit) 1 mg subcut Q20M PRN hydromorphone (Dilaudid) 4 mg PO Q6H PRN hydroxyzine HCl 25 mg PO BID PRN hydroxyzine pamoate 25 mg PO BID PRN ibuprofen 600 mg PO Q8H PRN insulin degludec (Tresiba FlexTouch U-100 insulin) 20 units subcut BID lisinopril 5 mg PO DAILY lurasidone 60 mg PO DAILY magnesium hydroxide (Milk of Magnesia) 5 mL PO DAILY PRN metformin 1,000 mg PO DAILY ondansetron HCl 4 mg PO Q6H rosuvastatin 10 mg PO DAILY sodium phosphates 19-7 gram/118 mL (Fleet Enema) 118 mL AL DAILY PRN HPI HPI OV Rt shoulder humerus shaft fx-brace check-W/XR: Details: 63-year-old returns to the office today for a follow-up right shoulder humeral shaft fracture. She states her pain has improved however the brace has been sliding down and not fitting well. [facility] Social History (Updated 10/28/24 @ 09:27 by Kaila Alegre) Alcohol intake: never Patient Tobacco Use Status: Never used Tobacco Current occupational status: retired and disabled Current occupation: right hand dominant Review of Systems Const All systems reviewed & are unremarkable except as noted in HPI and below Physical Exam Const General: cooperative and no acute distress Orientation/consciousness: patient oriented x3 Resp Effort & Inspection: normal respiratory effort and able to speak in complete sentences Cardio Peripheral pulses: Peripheral pulses 2+ throughout Neuro General: patient oriented x3 Extrem Other: Right shoulder normal joint inspection . Her swelling has improved since last visit. Anterior deltoid sensation intact she has mild tenderness over the fracture site. She can perform elbow range of motion without pain. Wrist range of motion intact. Radial nerve function and sensation intact. Pulses present. Results Reviewed Results Reviewed: X-rays of the right shoulder obtained in the office today significant for a humeral shaft fracture with significant displacement and angulation. There does appear to be some reduction of the humeral head. Assessment & Plan Assessment & Plan (1) Fracture of humeral shaft, right, closed: Code(s): S42.301A - Unspecified fracture of shaft of humerus, right arm, initial encounter for closed fracture Category: Medical Qualifiers: Encounter type: subsequent encounter Fracture morphology: other fracture Plan: She will discontinue the thermal molded brace and was fit for another humeral shaft fracture brace in the office today she should wear this at all times. I stressed the importance of allowing the shoulder and trapezium muscles to relax to help reduce this fracture. She can work on elbow range of motion as tolerated. I also educated her on the importance of wrist and hand range of motion to help with circulation. She should perform no lifting with the right upper extremity. I did encourage the rehab facility to work on postural training exercises. And she will see me back in 4 weeks with x-rays sooner if needed. Orders: Orders XR humerus RT Today S42.301A - Unspecified fracture of shaft of humerus, right arm, initial encounter for closed fracture Coding Level of Care Code Global (83204) Diagnoses Fracture of humeral shaft, right, closed S42.301A Encounter type: subsequent encounter Fracture morphology: other fracture
--- OUTSIDE RECORDS SUMMARY | 2024-11-04 12:36 | XMS_ITS | Encounter Summary ---
Author Organization [employer] Address [address] [facility] 7t [place] [address] Care Team Providers Care Mounter Flutes And Piccolos Name Role Phone Ynes Cherry Primary Care Provider [phone] Felicia Mcdermott RN Unavailable Reina Shen Unavailable Ronna Lopez RN NEW GRADUATE Primary Care Provider [phone] Encounter Details Date Type Department Care Team (Late st Contact Info) Description 02/06/2023 Telephone [facility] [address] [place] [address] Ynes Cherry FNP [address] [place] [address] [phone] Social History Tobacco Use Types Packs/Day Years [...] Description 12/02/2024 12:40 PM EDT Office Visit [address] [phone] Ronna Lopez FNP [address] [place] [address] 03/25/2025 10:00 AM EDT Clinical Support [address] [phone] Felicia Mcdermott RN [address] [place] [address] documented as of this encounter Visit Diagnoses Not on filedocumented in this encounter Additional Health Concerns Assessment Noted Time PHQ-9 Depression Total Score: 4 02/03/20 23 9:35 AM EDT documented as of this encounter Care Teams Mounter Flutes And Piccolos Relationship Specialty Start Date End Date Ynes Cherry FNP PCP - General Family Medicine 02/02/23 09/01/24 Ronna Lopez FNP [address] [place] [address] PCP - General Family Medicine 09/02/24 Felicia Mcdermott, RN [address] [place] [address] Electrician Shop 05/24/23 Reina Shen [address] [place] [address] [facility] 08/30/23 documented as of this encounter
--- OUTSIDE RECORDS SUMMARY | 2024-11-04 12:36 | XMS_ITS | Encounter Summary ---
Author Organization [employer] Address [address] [facility] 7t [place] [address] Care Team Providers Care Citrus Fruit Packer Name Role Phone Ynes Cherry Primary Care Provider [phone] Felicia Mcdermott RN Unavailable Reina Shen Unavailable Ronna Lopez WELDING SYSTEMS AND EQUIPMENT REPAIRER Primary Care Provider Reason for Visit * Reason Comments Med Refill Encounter Details Date Type Department Care Team (Late st Contact Info) Description 06/11/2024 Refill [facility] [address] [place] [address] Ynes Cherry FNP [address] [place] [address] Social History Tobacco Use Types Packs/Day [...] Center 09/17/2024 10:00 AM Felicia Mcdermott RN [facility] Comments: documented in this encounter Plan of Treatment Upcoming Encounters Date Type Department Care Team (Late st Contact Info) Description 12/02/2024 12:40 PM EDT Office Visit [address] [address] Ronna Lopez FNP [address] [place] [address] 03/25/2025 10:00 AM EDT Clinical Support [address] [address] Felicia Mcdermott RN [address] [place] [address] documented as of this encounter Visit Diagnoses Not on filedocumented in this encounter Additional Health Concerns Assessment Noted Time PHQ-9 Depression Total Score: 4 02/03/20 23 9:35 AM EDT documented as of this encounter Care Teams Citrus Fruit Packer Relationship Specialty Start Date End Date Ynes Cherry FNP PCP - General Family Medicine 02/02/23 09/01/24 Ronna Lopez FNP [address] [place] [address] PCP - General Family Medicine 09/02/24 Felicia Mcdermott, BETSY [address] [place] [address] Server Administrator 05/24/23 Reina Shen [address] [place] [address] [facility] 08/30/23 documented as of this encounter
--- OUTSIDE RECORDS SUMMARY | 2024-11-04 12:36 | XMS_ITS | Clinical Summary ---
Author Organization [employer] Address [address] [place] [address] 7t [place] [address] Care Team Providers Care Cyanide Case Hardener Name Role Phone Felicia Mcdermott RN Unavailable Reina Shen Unavailable Ronna Lopez Primary Care Provider [phone] Allergies Active Allergy Reactions Criticality Noted Date Comments Codeine Nausea And Vomiting Low 08/19/2013 Other reaction(s): Nausea, Vomiting, Diarrhea Oxycodone-Acetaminoph en Nausea And Vomiting Low 08/19/2013 Other reaction(s): Nausea, Vomiting, Diarrhea Medications hydrOXYzine HCl (Atarax) 25 MG tabletIndications: Schizoaffective disorder, depressive type ([facility]) 3 Active QUEtiapine (SEROquel) 100 MG tabletIndications: Schizoaffective disorder, depressive type ([facility]) 3 Active FreeStyle lancetsIndications :Type 2 diabetes mellitus with diabetic neuropathy, with long-term current use of insulin ([facility]) 1 each by Other route 4 times daily. 400 each 3 3 Active glucose blood (FREESTYLE LITE) test stripIndications:T ype 2 diabetes mellitus with diabetic neuropathy, with long-term current use of insulin ([facility]) 1 each by Other route 2 times daily. 400 each 3 3 Active lurasidone (Latuda) 60 MG tablet TAKE 1 TABLET BY MOUTH AT BEDTIME WITH FOOD 3 Active insulin degludec (Tresiba FlexTouch) 100 UNIT/ML injectionIndicatio ns:Type 2 diabetes mellitus with diabetic neuropathy, with long-term current use of insulin ([facility]) ADMINISTER UP TO 78 UNITS UNDER THE SKIN DAILY IN THE MORNING 70 mL 3 4 Active metFORMIN XR (Glucophage-XR) 500 MG 24 hr tabletIndications: Type 2 diabetes mellitus with diabetic neuropathy, with long-term current use of insulin ([facility]) 500mg tabs, 2 tabs twice daily 360 tablet 3 4 Active cholecalciferol (Vitamin D-3) 25 MCG (1000 UT) capsuleIndications :Vitamin D deficiency Take 1 capsule (25 mcg) by mouth Once per day. 90 capsule 3 4 Active empagliflozin (Jardiance) 25 MGIndications:Type 2 diabetes mellitus with other specified complication, unspecified whether mcfp insulin use ([facility]) TAKE 1 TABLET(25 MG) BY MOUTH IN THE MORNING 90 tablet 3 4 Active insulin aspart (NovoLOG FLEXPEN) 100 UNIT/ML penIndications:Typ e 2 diabetes mellitus with diabetic neuropathy, with long-term current use of insulin ([facility]) Sliding scale inject under the skin. Sliding scale with meals 70-110 none 111-150 2U 151-200 4 201-250 6 251-300 8 301-350 10 351-400 12 30 mL 11 4 Active insulin aspart, with niacinamide, (Fiasp) 100 UNIT/ML injectionIndicatio ns:Type 2 diabetes mellitus with diabetic neuropathy, with long-term current use of insulin ([facility]) Inject subcutaneously - Sliding scale TID with meals 70-110: none 111-150: 2U 151-200: 4U 201-250: 6U 251-300: 8U 301-350: 10U 351-400: 12U 30 mL 3 4 Active BD Pen Needle Nia 2nd Gen 32G X 4 MM miscIndications:Ty pe 2 diabetes mellitus with diabetic neuropathy, with long-term current use of insulin ([facility]) USE TO INJECT 4 TIMES DAILY 400 each 3 4 Active lisinopril 5 MG tabletIndications: Primary hypertension Take 1 tablet (5 mg) by mouth Once per day. 90 tablet 3 5 Active rosuvastatin (Crestor) 10 MG tabletIndications: Type 2 diabetes mellitus with diabetic neuropathy, with long-term current use of insulin ([facility]),Hyperlip idemia, unspecified hyperlipidemia type TAKE 1 TABLET(10 [...] major depressive disorder, without psychotic features 03/20/2020 long-term current use of oral hypoglycemic drug 03/20/2020 Overview (07/18/2022): Note: Unchanged Menopausal state 11/27/2018 Hypertension 03/31/2016 Vitamin D deficiency 10/21/2013 Cervicalgia 05/20/2013 Overview (07/18/2022): Note: degenerative disc dx at c5-6 and c6-7 Fatty liver 11/15/2012 Hyperlipidemia 05/08/2012 Absence of both cervix and uterus, 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 Encounters Date Type Department Care Team Description 10/02/[address] [address] Ronna Lopez FNP 10/02/[address] [phone] Ynes Cherry FNP Type 2 diabetes mellitus with diabetic neuropathy, with long-term current use of insulin ([facility]); Hyperlipidemia, unspecified hyperlipidemia type 09/30/[address] [address] Ronna Lopez FNP Primary hypertension 09/29/[address] [address] Ynes Cherry FNP Primary hypertension 09/17/2024 10:00 AM EST Clinical Support [address] [phone] Felicia Mcdermott, RN Type 2 diabetes mellitus with diabetic neuropathy, with long-term current use of insulin ([facility]) 09/03/[address] [address] Ynes Cherry FNP 09/02/2024 12:40 PM EST Office Visit [address] [address] Ronna Lopez, KERVIN Cerumen debris on tympanic membrane of both ears (Primary Dx); Type 2 diabetes mellitus with diabetic neuropathy, with long-term current use of insulin ([facility]) from Last 3 Months Immunizations Name Administration [...] Description 12/02/2024 12:40 PM EDT Office Visit [address] [address] Ronna Lopez FNP [address] [place] [address] 03/25/2025 10:00 AM EDT Clinical Support [address] [address] Felicia Mcdermott, BETSY [address] [place] [address] Health Maintenance Due Date Last Done Comments [...] neuropathy, with long-term current use of insulin ([facility]) COMPREHENSIVE METABOLIC PANEL Routine 09/17/2024 10:21 AM [...] LDL (09/17/2024 10:21 AM EST) Pathologist [facility] Cholesterol, Total 119 <200 mg/dL [email or web address] [place] [facility] HDL Cholesterol 38(L) > OR = 50 mg/dL [facility] [place] [facility] Triglycerides 263(H) <150 mg/dL [facility] Comment: If a non-fasting specimen was collected, consider repeat triglyceride testing on a fasting specimen if clinically indicated. Chema et al. J. of Clin. Lipidol. 2015;9:129-169. LDL Cholesterol 50 mg/dL [email or web address] Comment: Reference range: <100 Desirable range <100 mg/dL for primary prevention; ?? <70 mg/dL for patients with CHD or diabetic patients with > or = 2 CHD risk factors. LDL-C is now calculated using the Elizabet calculation, which is a validated novel method providing better accuracy than the Friedewald equation in the estimation of LDL-C. Shahram SS et al. ARIANE. 2013;310(19): 7642-2723 (http://education.SecureWave/faq/VQD937) Chol/HDLC Ratio 3.1 <5.0 (calc) [email or web address] Non-HDL Cholesterol 81 <130 mg/dL [email or web address] Comment: For patients with diabetes plus 1 major ASCVD risk factor, treating to a non-HDL-C goal of <100 mg/dL (LDL-C of <70 mg/dL) is considered a therapeutic option. Blood 09/17/2024 10:2 1 AM EST 09/17/2024 10:22 AM EST Narrative [facility] - 09/17/2024 9:57 PM EST FASTING:NO FASTING: NO Ronna Lopez [facility] BLOOD ORDERABLES Final Resul t [facility] [address], [place] [address] [email or web address] 200 [place] [address] * (ABNORMAL) Hemoglobin A1c with Calculated Mean Plasma Glucose (MPG) (09/17/2024 10:21 AM EST) Hemoglobin A1c 5.8(H) <5.7 % of total Hgb [email or web address] Comment: For someone without known diabetes, a [...] children. Mean Plasma Glucose 129 mg/dL (calc) [facility] 09/17/2024 10:2 1 AM EST 09/17/2024 10:22 AM EST Narrative [facility] - 09/17/2024 9:57 PM EST FASTING:NO FASTING: NO Ronna Lopez [facility] BLOOD ORDERABLES Final Resul t [facility] [address], [place] [address] [facility] 200 [place] [address] * (ABNORMAL) CBC auto differential (09/17/2024 10:21 AM EST) White Blood Cell Count 9.5 3.8 - 10.8 Thousand/ uL [facility] Red Blood Cell Count 4.77 3.80 - 5.10 Million/u L [facility] Hemoglobin 14.1 11.7 - 15.5 g/dL [facility] Hematocrit 43.0 35.0 - 45.0 % [facility] MCV 90.1 80.0 - 100.0 fL [facility] MCH 29.6 27.0 - 33.0 pg [facility] MCHC 32.8 32.0 - 36.0 g/dL [facility] Comment: For adults, a slight decrease in the calculated MCHC value (in the range of 30 to 32 g/dL) is most likely not clinically significant; however, it should be interpreted with caution in correlation with other red cell parameters and the patient's clinical condition. RDW 13.1 11.0 - 15.0 % [facility] Platelet Count 372 140 - 400 Thousand/ uL [facility] MPV 10.6 7.5 - 12.5 fL [facility] Absolute Neutrophils 5,928 1,500 - 7,800 cells/uL [facility] Lymphocytes 2,394 850 - 3,900 cells/uL [facility] Absolute Monocytes 447 200 - 950 cells/uL [facility] Absolute Eosinophils 627(H) 15 - 500 cells/uL [facility] Absolute Basophils 105 0 - 200 cells/uL [facility] Neutrophils 62.4 % [facility] Lymphocytes 25.2 % [facility] Monocytes 4.7 % [facility] [place] [facility] Eosinophils 6.6 % [facility] Basophils 1.1 % [email or web address] Blood Venous blood specimen / Unknown 09/17/2024 10:21 AM EST 09/17/2024 10:22 AM EST Narrative [facility] - 09/17/2024 9:57 PM EST FASTING:NO FASTING: NO Ronna Lopez [facility] BLOOD ORDERABLES Final Resul t [facility] [address], [place] [address] [facility] 200 [place] [address] * Vitamin B12 (09/17/2024 10:21 AM EST) Vitamin B12 322 200 - 1,100 pg/mL [facility] Comment: Please Note: Although the reference range [...] PM EST FASTING:NO FASTING: NO Ronna Lopez [facility] BLOOD ORDERABLES Final Resul t [facility] [address], [place] [address] [facility] [address] [place] [address] * (ABNORMAL) Comprehensive Metabolic Panel (09/17/2024 10:21 AM EST) Glucose 174(H) 65 - 139 mg/dL [email or web address] Comment: ? Non-fasting reference interval Urea Nitrogen (BUN) 12 7 - 25 mg/dL [facility] Creatinine, Serum 0.91 0.50 - 1.05 mg/dL [facility] eGFR 70 > OR = 60 mL/min/1. 73m2 [facility] BUN/Creatinine Ratio SEE NOTE: 6 - (calc) [email or web address] Comment: ?? Not Reported: BUN and Creatinine are within ?? reference range. ? Sodium 140 135 - 146 mmol/L [email or web address] Potassium 4.3 3.5 - 5.3 mmol/L [email or web address] Chloride 104 98 - 110 mmol/L [email or web address] Carbon Dioxide 23 20 - 32 mmol/L [email or web address] Calcium 9.5 8.6 - 10.4 mg/dL [facility] Protein, Total 6.9 6.1 - 8.1 g/dL [email or web address] Albumin 4.3 3.6 - 5.1 g/dL [email or web address] Globulin 2.6 1.9 - 3.7 g/dL (calc) [email or web address] Albumin/Globuli n Ratio 1.7 1.0 - 2.5 (calc) [facility] Bilirubin, Total 0.3 0.2 - 1.2 mg/dL [facility] Alkaline Phosphatase 46 37 - 153 U/L [facility] AST 17 10 - 35 U/L [email or web address] ALT 18 6 - 29 U/L [facility] Blood Venous blood specimen / Unknown 09/17/2024 10:21 AM EST 09/17/2024 10:22 AM EST Narrative [facility] - 09/17/2024 9:57 PM EST FASTING:NO FASTING: NO us Ronna John RECORDS ANALYST LAB BLOOD ORDERABLES Final Resul t Performing Organization Address [facility] de Phone Number [address], [facility] [place] [address] [facility] [address] [place] [address] * Albumin, Random Urine W/Creatinine (05/22/2024 11:41 AM EDT) Creatinine, Random Urine 91 20 - 275 mg/dL [facility] Albumin, Urine 0.9 See Note: mg/dL [facility] Comment: Reference Range: Reference Range Not established Albumin/Creatinin e Ratio, Random Urine 10 <30 mg/g creat [facility] Comment: The ADA defines abnormalities in albumin [...] EDT FASTING:NO FASTING: NO us Ynes Cherry RECORDS ANALYST LAB URINE ORDERABLES Final Res ult Performing Organization Address [facility]/ZIP Co de Phone Number [facility] [address], [place] [address] [facility] [address] [place] [address] * BI Mammogram Screening Tomosynthesis Bilateral (01/05/2024 [...] (Benign) Lay letter mailed to patient WSN: [id number] Ordering Physician: Ynes Cherry Dictated By: ?Juwan Romano MD Dictated Date/Time: ?01/05/24 4:58 pm Reviewed By: ?Juwan Romano MD Signed By: ? Juwan Romano MD Signed Date/Time: ? 01/05/24 4:58 pm Transcribed By: ? CSB Network Support Specialist Date/Time: ? 01/05/24 4:54 pm Birads: Procedure [...] (Benign) Lay letter mailed to patient WSN: [id number] Ordering Physician: Ynes Cherry Dictated By: Juwan Romano MD Dictated Date/Time: 01/05/24 4:58 pm Reviewed By: Juwan Romano MD Signed By: Juwan Romano MD Signed Date/Time: 01/05/24 4:58 pm Transcribed By: SHANA Network Support Specialist Date/Time: 01/05/24 4:54 pm Birads: Ynes GALEANA IMG BI PROCEDURES Final Result * Hm Diabetes Eye Exam (06/13/2023) Eye Exam Normal Normal Comment:REPEAT EYE EXAMIN 1 MONTH Historical Provider HEALTH MAINTENANCE Final Result * Occult Blood, Fecal, Immunoassay (04/04/2023 9:25 AM EDT) Fecal Occult Blood, Immunochemical (FIT) NEGATIVE (NEG) [facility] Comment: Testing performed or reported by [facility], a Service of [facility], [address] [place] [address] King Hamm MD, Technologist Infectious Disease [facility]# [id number] 04/04/2023 9:25 AM EDT 04/10/2023 9:31 AM EDT Ynes GALEANA LAB BODY FLUIDS AND STOOLS ORD ERABLES Final Result [facility] [address] [place] [address] * Colonoscopy (04/29/2022) Colonoscopy FIT NEGATIVE Historical Provider HEALTH MAINTENANCE Final Result * Hepatitis C Antibody (02/11/2019) Hepatitis C Antibody Nonreactive Blood Historical Provider HEALTH MAINTENANCE Final Result from Last 3 Months or Most Recently Relevant to Health Maintenance Insurance [facility] STANDARD MEDICARE * Guarantor: Matilde Ferrer Account Type Relation to Patient Date of Phone Billing Address Dental Self Care Teams Cyanide Case Hardener Relationship Specialty Start Date End Date Ronna Lopez FNP [address] [place] [address] PCP - General Family Medicine 09/02/24 Felicia Mcdermott RN [address] [place] [address] Make Up Operator Helper 05/24/23 Reina Shen [address] [place] [address] [facility] 08/30/23
--- OUTSIDE RECORDS SUMMARY | 2024-11-04 12:36 | XMS_ITS | Encounter Summary ---
Author Organization [employer] Address [address] [facility] 7t [place] [address] Care Team Providers Care Chucking Machine Operator Name Role Phone Ynes Cherry Primary Care Provider [phone] Felicia Mcdermott RN Unavailable Reina Shen Unavailable Ronna Lopez PARIMUTUEL CLERK Primary Care Provider [phone] Encounter Details Date Type Department Care Team (Late st Contact Info) Description 06/09/[address] [facility] [address] [place] [address] Yens Cherry FNP [address] [place] [address] [phone] Social History Tobacco Use Types Packs/Day Years [...] Description 12/02/2024 12:40 PM EDT Office Visit [address] [phone] Ronna Lopez FNP [address] [place], [place] [phone] 03/25/2025 10:00 AM EDT Clinical Support [address] [address] Felicia Mcdermott RN [address] [place] [address] documented as of this encounter Visit Diagnoses Not on filedocumented in this encounter Additional Health Concerns Assessment Noted Time PHQ-9 Depression Total Score: 4 02/03/20 23 9:35 AM EDT documented as of this encounter Care Teams Chucking Machine Operator Relationship Specialty Start Date End Date Ynes Cherry FNP PCP - General Family Medicine 02/02/23 09/01/24 Ronna Lopez FNP [address] [place] [address] PCP - General Family Medicine 09/02/24 Felicia Mcdermott, RN [address] [place] [address] Communication Instructor 05/24/23 Reina Shen [address] [place] [address] [facility] 08/30/23 documented as of this encounter
--- OUTSIDE RECORDS SUMMARY | 2024-11-04 12:36 | XMS_ITS | Encounter Summary ---
Author Organization [employer] Address [address] [facility] 7t [place] [address] Care Team Providers Care Rental Clerk Tool And Equipment Name Role Phone Ynes Cherry Primary Care Provider Felicia Mcdermott RN Unavailable Reina Shen Unavailable Ronna Lopez NETWORK TECHNOLOGY INSTRUCTOR Primary Care Provider [phone] Encounter Details Date Type Department Care Team (Late st Contact Info) Description 06/09/2023 Abstract [facility] [address] [place] [address] Ynes Cherry FNP [address] [place] [address] [phone] Social History Tobacco Use Types Packs/Day Years Used Date Smoking Tobacco: Former Cigarettes Q uit: 2010 Smokeless Tobacco: Never Comments:Quit 13 years ago Alcohol Use Standard Drinks/Week Comments Never 0 (1 standard drink = 0.6 oz pur e alcohol) Depression Answer Date Recorded Patient Health Questionnaire-9 Score 4 02/02/2023 Housing Stability Answer Date Recorded What is your housing situation today? I have kamila amnley 06/05/[address] you li [...] Description 12/02/2024 12:40 PM EDT Office Visit [address] [phone] Ronna Lopez FNP [address] [place], [place] [phone] 03/25/2025 10:00 AM EDT Clinical Support [address] [address] Felicia Mcdermott RN [address] [place] [address] documented as of this encounter Visit Diagnoses Not on filedocumented in this encounter Additional Health Concerns Assessment Noted Time PHQ-9 Depression Total Score: 4 02/03/20 23 9:35 AM EDT documented as of this encounter Care Teams Rental Clerk Tool And Equipment Relationship Specialty Start Date End Date Ynes Cherry FNP PCP - General Family Medicine 02/02/23 09/01/24 Ronna Lopez FNP [address] [place] [address] PCP - General Family Medicine 09/02/24 Felicia Mcdermott, RN [address] [place] [address] Director Orange 05/24/23 Reina Shen [address] [place] [address] [facility] 08/30/23 documented as of this encounter
--- OUTSIDE RECORDS SUMMARY | 2024-11-04 12:36 | XMS_ITS | Encounter Summary ---
Author Organization [employer] Address [address] [facility] 7t [place] [address] Care Team Providers Care Welder Repair Name Role Phone Jo AnnYnes ONBOARDING SPECIALIST Primary Care Provider Felicia Mcdermott RN Unavailable Reina Shen Unavailable Ronna Lopez ONBOARDING SPECIALIST Primary Care Provider [phone] Encounter Details Date Type Department Care Team (Late st Contact Info) Description 01/10/2024 Orders Only [facility] Information Management [address] [place], [place] [phone] Provider, Not In System Social History Tobacco [...] the past 12 months, has t he [employer], gas, oil or water company threatened to [...] 12/02/2024 12:40 PM EDT Office Visit [address] [phone] Ronna Lopez FNP [address] [place] [address] 03/25/2025 10:00 AM EDT Clinical Support [address] [phone] Felicia Mcdermott RN [address] [place] [address] documented as of this encounter Procedures Procedure [...] documented as of this encounter Care Teams Welder Repair Relationship Specialty Start Date End Date Ynes Cherry FNP PCP - General Family Medicine 02/02/23 09/01/24 Ronna Lopez FNP [address] [place] [address] PCP - General Family Medicine 09/02/24 Felicia Mcdermott, RN [address] [place] [address] Grinder Brake Lining 05/24/23 Reina Shen [address] [place] [address] [facility] 08/30/23 documented as of this encounter
--- OUTSIDE RECORDS SUMMARY | 2024-11-04 12:36 | XMS_ITS | Encounter Summary ---
Author Organization [facility] [employer] [facility] Address [address] [place] [address] 7 [place] [address] Care Team Providers Care Sexual Abuse Counsellor Name Role Phone Deedee Chappell MD Primary Care Provider [phone] Terri Bennett [facility] Primary Care Provider Unavail able [place] Unassigned Primary Care Provider U Ynes Bower COREMAKER SUPERVISOR Primary Care Provider Ynes Cherry [facility] Primary Care Provider Felicia Mcdermott RN Unavailable Reina Shen Unavailable Ronna Lopez [facility] Primary Care Provider [phone] Encounter Details Date Type Department Care Team (Late st Contact Info) Description 07/18/[address] [phone] Deedee Chappell MD [address] [place] [address] Social History Tobacco Use Types Packs/Day Years [...] Description 12/02/2024 12:40 PM EDT Office Visit [address] [phone] Ronna Lopez FNP [address] [place] [address] 03/25/2025 10:00 AM EDT Clinical Support [address] [phone] Felicia Mcdermott, RN [address] [place] [address] documented as of this encounter Visit Diagnoses Not on filedocumented in this encounter Care Teams Sexual Abuse Counsellor Relationship Specialty Start Date End Date Deedee Chappell MD [address] [place] [address] PCP - General Family Medicine 07/18/22 08/08/22 Terri Bennett FNP [address] [place] [address] PCP - General Family Medicine 08/09/22 12/05/22 [place] Unassigned PCP - General Family Medicine 12/06/22 12/20/22 Ynes Cherry FNP PCP - General Family Medicine 12/21/22 12/21/22 Ynes Cherry FNP PCP - General Family Medicine 02/02/23 09/01/24 Ronna Lopez FNP [address] [place] [address] PCP - General Family Medicine 09/02/24 Felicia Mcdermott, RN [address] [place] [address] Pit Inspector 05/24/23 Reina Shen [address] [place] [phone] [facility] 08/30/23 documented as of this encounter
== END 2024-11-04 12:13 | disposition home or self-care (01) ==
LOC: HO.HOS 11:06
PROVIDERS: PCP Internal Medicine; Visit Provider Physician Assistant
DX: S42.301A Unspecified fracture of shaft of humerus, right arm, initial encounter for closed fracture (principal)
CPT/HCPCS: 99213

== ENCOUNTER → 2024-11-04 11:09 | Outpatient (BNV) | payer MEDICARE, MEDICAID, SELFPAY | PROVIDERS: Visit Provider Radiology Diagnostic Radiology | DX: S42.301A Unspecified fracture of shaft of humerus, right arm, initial encounter for closed fracture (principal); W00.9XXA Unspecified fall due to ice and snow, initial encounter | CPT/HCPCS: 73060 ==

== ENCOUNTER 2024-12-06 08:03 | Outpatient (REF) | payer MEDICARE, MEDICAID, SELFPAY ==
--- NOTE | ~2024-12-06 | XR_ITS ---
CLINICAL HISTORY: S42.301A - Unspecified fracture of shaft of humerus, right arm, initial ... 4 view right humerus Comparison: 11/04/2024 Findings: Alignment of the mid humeral fracture with minimal callus formation. No new fractures or dislocations. No significant arthritic change. No radiopaque foreign body. IMPRESSION: 1. Minimal healing response of humeral fracture with otherwise no change from prior exam. This document has been electronically signed by: Dontae Swan MD on 12/07/2024 08:38:45
--- OUTSIDE RECORDS SUMMARY | 2024-12-09 08:21 | XMS_ITS | Encounter Summary ---
Author Organization [employer] Address [address] [facility] 7t [place] [address] Care Team Providers Care Dance Studio Manager Name Role Phone Ynes Cherry Primary Care Provider [phone] Felicia Mcdermott RN Unavailable Reina Shen Unavailable Ronna Lopez FINANCIAL SYSTEMS ADMINISTRATOR Primary Care Provider [phone] Encounter Details Date Type Department Care Team (Late st Contact Info) Description 02/06/2023 Telephone [facility] [address] [place] [address] Ynes Cherry FNP [address] [place] [address] [phone] Social History Tobacco Use Types Packs/Day Years [...] Care Team (Late st Contact Info) Description 03/25/2025 10:00 AM EDT Clinical Support [address] [phone] Felicia Mcdermott, RN [address] [place] [address] documented as of this encounter Visit Diagnoses Not on filedocumented in this encounter Additional Health Concerns Assessment Noted Time PHQ-9 Depression Total Score: 4 02/03/20 9:35 AM EDT documented as of this encounter Care Teams Dance Studio Manager Relationship Specialty Start Date End Date Ynes Cherry FNP PCP - General Family Medicine 02/02/23 09/01/24 Ronna Lopez FNP [address] [place] [phone] PCP - General Family Medicine 09/02/24 Felicia Mcdermott, RN [address] [place] [address] Sociology Instructor 05/24/23 Reina Shen [address] [place] [phone] [facility] 08/30/23 documented as of this encounter
--- OUTSIDE RECORDS SUMMARY | 2024-12-09 08:21 | XMS_ITS | Encounter Summary ---
Author Organization [employer] [facility] Address [address] [place] [address] 7 [place] [address] Care Team Providers Care Blasting Contract Man Name Role Phone Deedee Chappell MD Primary Care Provider Terri Bennett [facility] Primary Care Provider Unavail able [place] Unassigned Primary Care Provider U Ynes Bower [facility] Primary Care Provider [phone] Ynes Cherry [facility] Primary Care Provider [phone] Felicia Mcdermott RN Unavailable Reina Shen Unavailable Ronna Lopez [facility] Primary Care Provider Encounter Details Date Type Department Care Team (Late st Contact Info) Description 07/18/[address] [phone] Deedee Chappell MD [address] [place] [address] Social History Tobacco Use Types Packs/Day Years [...] Description 03/25/2025 10:00 AM EDT Clinical Support [address] [phone] Felicia Mcdermott RN [address] [place] [address] documented as of this encounter Visit Diagnoses Not on filedocumented in this encounter Care Teams Blasting Contract Man Relationship Specialty Start Date End Date Deedee Chappell MD [address] [place] [address] PCP - General Family Medicine 07/18/22 08/08/22 Terri Bennett FNP [address] [place] [address] PCP - General Family Medicine 08/09/22 12/05/22 [place] Unassigned PCP - General Family Medicine 12/06/22 12/20/22 Ynes Cherry FNP PCP - General Family Medicine 12/21/22 12/21/22 Ynes Cherry FNP PCP - General Family Medicine 02/02/23 09/01/24 Ronna Lopez FNP [address] [place] [address] PCP - General Family Medicine 09/02/24 Felicia Mcdermott RN [address] [place] [address] Classification Analyst 05/24/23 Reina Shen [address] [place] [address] [facility] 08/30/23 documented as of this encounter
--- OUTSIDE RECORDS SUMMARY | 2024-12-09 08:21 | XMS_ITS | Encounter Summary ---
Author Organization [employer] Address [address] [facility] 7t [place] [address] Care Team Providers Care Surface Mount Technology Operator Name Role Phone Ynes Cherry Primary Care Provider [phone] Felicia Mcdermott RN Unavailable Reina Shen Unavailable Ronna Lopez GEOPHYSICAL COMPUTER Primary Care Provider [phone] Encounter Details Date Type Department Care Team (Late st Contact Info) Description 06/09/2023 Abstract [facility] [address] [place] [address] Ynes Cherry FNP [address] [place] [address] [phone] Social History Tobacco Use Types Packs/Day Years [...] Description 03/25/2025 10:00 AM EDT Clinical Support [address] [phone] Felicia Mcdermott RN [address] [place] [address] documented as of this encounter Visit Diagnoses Not on filedocumented in this encounter Additional Health Concerns Assessment Noted Time PHQ-9 Depression Total Score: 4 02/03/20 23 9:35 AM EDT documented as of this encounter Care Teams Surface Mount Technology Operator Relationship Specialty Start Date End Date Ynes Cherry FNP PCP - General Family Medicine 02/02/23 09/01/24 Ronna Lopez FNP [address] [place] [phone] PCP - General Family Medicine 09/02/24 Felicia Mcdermott RN [address] [place] [address] Export Freight Manager 05/24/23 Reina Shen [address] [place] [address] [facility] 08/30/23 documented as of this encounter
--- OUTSIDE RECORDS SUMMARY | 2024-12-09 08:21 | XMS_ITS | Encounter Summary ---
Author Organization [employer] Address [address] [facility] 7t [place] [address] Care Team Providers Care Deputy Sheriff Court Services Name Role Phone Felicia Mcdermott RN Unavailable Reina Shen Unavailable Ronna Lopez Primary Care Provider [phone] Reason for Visit * Reason Onset Date Comments Care Coordination 11/07/2024 I spoke to jailene ashraf regarding Dexcom follow up. Patient reports he fractured her humerus and is in a rehab center. I advised she can call us when she gets back home to follow up with Felicia. Encounter Details Date Type Department Care Team (Late st Contact Info) Description 11/07/2024 Telephone [facility] [address] [place] [address] Ronna Lopez FNP [address] [place], [place] [phone] Care Coordination (I spoke to patient regarding [...] Description 03/25/2025 10:00 AM EDT Clinical Support [facility] [address] [place] [phone] Felicai Mcdermott, RN [address] [place] [phone] documented as of this encounter Visit Diagnoses Not on filedocumented in this encounter Additional Health Concerns Assessment Noted Time PHQ-9 Depression Total Score: 4 02/03/20 23 9:35 AM EDT documented as of this encounter Care Teams Deputy Sheriff Court Services Relationship Specialty Start Date End Date Ronna Lopez FNP [address] [place] [address] PCP - General Family Medicine 09/02/24 Felicia Mcdermott, RN [address] [place] [address] Gun Synchronizer 05/24/23 Reina Shen [address] [place] [phone] [facility] 08/30/23 documented as of this encounter
--- OUTSIDE RECORDS SUMMARY | 2024-12-09 08:21 | XMS_ITS | Encounter Summary ---
Author Organization [employer] Address [address] [facility] 7t [place] [address] Care Team Providers Care Duplicating Machine Servicer Name Role Phone Jo AnnYnes CASTING AND CURING OPERATOR Primary Care Provider [phone] Felicia Mcdermott RN Unavailable Reina Shen Unavailable Ronna Lopez CASTING AND CURING OPERATOR Primary Care Provider [phone] Encounter Details Date Type Department Care Team (Late st Contact Info) Description 01/10/2024 Orders Only [facility] Information Management [address] [place], [place] [phone] Provider, Not In System Social History Tobacco [...] Description 03/25/2025 10:00 AM EDT Clinical Support [facility] [address] [place] [phone] Felicia Mcdermott, RN [address] [place] [phone] documented as of this encounter Procedures Procedure Name Priority Date/Time Associated Diagnosis Comments MAMMOGRAPHY Routine 01/05/2024 11:10 AM EDT documented in this encounter Results * Hm Mammography (01/05/2024 11:10 AM EDT) Anatomical Region Laterality Modality Other us Not In System Provider HEALTH MAINTENANCE Final Result documented in this encounter Visit Diagnoses Not on filedocumented in this encounter Additional Health Concerns Assessment Noted Time PHQ-9 Depression Total Score: 4 02/03/20 23 9:35 AM EDT documented as of this encounter Care Teams Duplicating Machine Servicer Relationship Specialty Start Date End Date Ynes Cherry FNP PCP - General Family Medicine 02/02/23 09/01/24 Ronna Lopez FNP [address] [place] [phone] PCP - General Family Medicine 09/02/24 Felicia Mcdermott RN [address] [place] [address] Farmer Cash Grain 05/24/23 Reina Shen [address] [place] [phone] [facility] 08/30/23 documented as of this encounter
--- OUTSIDE RECORDS SUMMARY | 2024-12-09 08:21 | XMS_ITS | Encounter Summary ---
Author Organization [employer] Address [address] [place] [address] 7t h Floor [place] [address] Care Team Providers Care Solar Sales Representative Name Role Phone Felicia Mcdermott RN Unavailable Reina Shen Unavailable Ronna Lopez Primary Care Provider [phone] Encounter Details Date Type Department Care Team ([facility] st Contact Info) Description 11/22/2024 Telephone [facility] [address] [place] [address] Ronna Lopez FNP [address] [place] [address] Social History Tobacco Use Types Packs/Day Years [...] the past 12 months, has t he [employer], oil or water [employer] threatened to shut off services in your [...] Department Care Team (Tab Contact Info) Description 03/25/2025 10:00 AM EDT Clinical Support [facility] [address] [place] [phone] Felicia Mcdermott, RN [address] [place] [phone] documented as of this encounter Visit Diagnoses Not on filedocumented in this encounter Additional Health Concerns Assessment Noted Time PHQ-9 Depression Total Score: 4 02/03/20 23 9:35 AM EDT documented as of this encounter Care Teams Solar Sales Representative Relationship Specialty Start Date End Date Ronna Lopez FNP [address] [place] [phone] PCP - General Family Medicine 09/02/24 Felicia Mcdermott, RN [address] [place] [address] Tmr Teacher 05/24/23 Reina Shen [address] [place] [phone] [facility] 08/30/23 documented as of this encounter
--- OUTSIDE RECORDS SUMMARY | 2024-12-09 08:21 | XMS_ITS | Clinical Summary ---
Author Organization [employer] Address [address] [place] [address] 7[address] [place] [address] Care Team Providers Care Catcher Filter Tip Name Role Phone Felicia Mcdermott RN Unavailable Reina Shen Unavailable Ronna Lopez Primary Care Provider [phone] Allergies Active Allergy Reactions Criticality Noted Date Comments Codeine Nausea And Vomiting Low 08/19/2013 Other reaction(s): Nausea, Vomiting, Diarrhea Oxycodone-Acetaminoph en Nausea And Vomiting Low 08/19/2013 Other reaction(s): Nausea, Vomiting, Diarrhea Medications FreeStyle lancetsIndication s:Type 2 diabetes mellitus with diabetic neuropathy, with long-term current use of insulin (CMS/[facility]) 1 each by Other route 4 times [...] neuropathy, with long-term current use of insulin (CMS/[facility]) ADMINISTER UP TO 78 UNITS UNDER THE [...] mellitus with other specified complication, unspecified whether customer support engineer insulin use ([facility]) TAKE 1 TABLET(25 MG) BY MOUTH IN THE MORNING 90 tablet 3 024 Active insulin aspart (NovoLOG FLEXPEN) 100 UNIT/ML penIndications:Ty pe 2 diabetes mellitus with diabetic neuropathy, with long-term current use of insulin ([facility]) Sliding scale inject under the skin. Sliding scale with meals 70-110 none 111-150 2U 151-200 4 201-250 6 251-300 8 301-350 10 351-400 12 30 mL 11 024 Active insulin aspart, with niacinamide, (Fiasp) 100 UNIT/ML injectionIndicati ons:Type 2 diabetes mellitus with diabetic neuropathy, with long-term current use of insulin ([facility]) Inject subcutaneousl y- Sliding scale TID with meals 70-110: none 111-150: 2U 151-200: 4U 201-250: 6U 251-300: 8U 301-350: 10U 351-400: 12U 30 mL 3 024 Active BD Pen Needle Nia 2nd Gen 32G X 4 MM miscIndications:T ype 2 diabetes mellitus with diabetic neuropathy, with long-term current use of insulin ([facility]) USE TO INJECT 4 TIMES DAILY 400 each 3 024 Active lisinopril 5 MG tabletIndications :Primary hypertension Take 1 tablet (5 mg) by mouth Once per day. 90 tablet 3 025 Active rosuvastatin (Crestor) 10 MG tabletIndications :Type 2 diabetes mellitus with diabetic neuropathy, with long-term current use of insulin ([facility]),Hyperli pidemia, unspecified hyperlipidemia type TAKE 1 TABLET(10 MG) BY MOUTH DAILY 90 tablet 3 025 Active Ozempic, 1 MG/DOSE, 4 MG/3ML solution pen-injector INJECT 1MG SUBCUT ONCE WEEKLY 3 mL 1 025 Active hydrOXYzine HCl (Atarax) 5 mg split tablet 25 mg. 020 Active acetaminophen (Tylenol) 500 MG tablet Take 1,000 mg by mouth every 8 (eight) hours. 025 Active ARIPiprazole (Abilify) 5 MG tablet Take 5 mg by mouth at bed time. 025 Active Zofran 4 MG tablet Take 4 [...] (two) times a week. 120 mL 3 025 Active hydrOXYzine HCl (Atarax) 25 MG tabletIndications [...] eorder (will not trigger notification to Pharmacy)) sulfamethoxazole- trimethoprim (Bactrim DS) 800-160 MG tablet Take 1 tablet by mouth 2 times daily for 10 days. 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 Encounters Date Type Department Care Team Description 11/26/2024 Orders Only [address] [phone] Ronna Lopez FNP Staph infection (Primary Dx) 11/22/2024 12:40 PM EDT Office Visit [address] [phone] Ronna Lopez FNP Seborrhea capitis (Primary Dx); Closed fracture of proximal end of right humerus with routine healing, unspecified fracture morphology, subsequent encounter; Localized swelling on right hand 11/22/[address] [phone] Ronna Lopez FNP 11/15/2024 1:40 PM EDT Office Visit [address] [phone] Ronna Lopez FNP Closed fracture of proximal end of right humerus with routine healing, unspecified fracture morphology, subsequent encounter (Primary Dx) 11/12/2024 Patient Outreach [address] [place] [address] Stephanie English LPN Transition Of Care (Tcm) (LEXY, discharged from snf 11/11/2024) 11/08/[address] [facility] (C3) [address] [phone] Provider, Population Health Generic 11/07/[address] [phone] Ronna Lopez FNP Care Coordination (I spoke to patient regarding Dexcom follow up. Patient reports he fractured her humerus and is in a rehab center. I advised she can call us when she gets back home to follow up with Felicia.) 10/02/[address] [phone] Ronna Lopez FNP 10/02/[address] [phone] Ynes Cherry FNP Type 2 diabetes mellitus with diabetic neuropathy, with long-term current use of insulin ([facility]); Hyperlipidemia, unspecified hyperlipidemia type 09/30/[address] [place] [phone] Ronna Lopez FNP Primary hypertension 09/29/[address] [phone] Ynes Cherry FNP Primary hypertension 09/17/2024 10:00 AM EST Clinical Support [address] [phone] Felicia Mcdermott, RN Type 2 diabetes mellitus with diabetic neuropathy, with long-term current use of insulin ([facility]) from Last 3 Months Immunizations Name Administration [...] Description 03/25/2025 10:00 AM EDT Clinical Support [facility] [address] [place] [phone] Felicia Mcdermott RN [address] [place] [address] Health Maintenance Due Date Last Done Comments CT Colonography 1958 FIT DNA/Cologuard 1960 Sigmoidoscopy 1960 Hepatitis A Vaccines (1 of 2 - Risk 2-dose series) 1977 Hepatitis B Vaccines (1 of 3 - Risk 3-dose series) 2018 RSV Patients and Patients Aged 60 years or older (1 - Risk 60-74 years 1-dose series) 2018 FOBT 04/04/2024 04/04/2023, 0909/2021, 04/21/2021, Additional history exists COVID-19 Vaccine () [...] neuropathy, with long-term current use of insulin (CMS/[facility]) COMPREHENSIVE METABOLIC PANEL Routine 09/17/2024 10:21 AM [...] malignant neoplasm of colon COLONOSCOPY Routine 04/29/2022 HM HEPATITIS C ANTIBODY Routine 02/11/2019 from Last 3 Months or Most Recently Relevant to Health Maintenance Results * (ABNORMAL) Culture, Aerobic Bacteria (11/22/2024 3:31 PM EDT) Pathologist [facility] Culture, Aerobic Bacteria SEE NOTE(A) [employer] Comment: ??CULTURE, AEROBIC BACTERIA ?Micro Number: ?[id number] ??Test Status: ? Final ??Specimen Source: ?? [...] AM EDT FASTING:UNKNOWN FASTING: UNKNOWN Ronna Lopez [facility] MICROBIOLOGY - GENERAL ORDER PHUONG Final Result [facility] [address] [place] [address] [facility] [place] [facility] [address] [place] [address] * (ABNORMAL) Lipid Panel with Reflex to Direct LDL (09/17/2024 10:21 AM EST) Cholesterol, Total 119 <200 mg/dL [facility] [place] [facility] HDL Cholesterol 38(L) > OR = 50 mg/dL [facility] [place] [facility] Triglycerides 263(H) <150 mg/dL [facility] [place] [facility] Comment: If a non-fasting specimen was collected, consider repeat triglyceride testing on a fasting specimen if clinically indicated. Chema et al. J. of Clin. Lipidol. 2015;9:129-169. LDL Cholesterol 50 mg/dL [facility] Comment: Reference range: <100 Desirable range <100 mg/dL for primary prevention; ?? <70 mg/dL for patients with CHD or diabetic patients with > or = 2 CHD risk factors. LDL-C is now calculated using the Elizabet calculation, which is a validated novel method providing better accuracy than the Friedewald equation in the estimation of LDL-C. Shahram SS et al. ARIANE. 2013;310(19): 7216-8321 (http://education.[employer]/faq/CYC935) Chol/HDLC Ratio 3.1 <5.0 (calc) [facility] Non-HDL Cholesterol 81 <130 mg/dL [facility] Comment: For patients with diabetes plus 1 major ASCVD risk factor, treating to a non-HDL-C goal of <100 mg/dL (LDL-C of <70 mg/dL) is considered a therapeutic option. Blood 09/17/2024 10:2 1 AM EST 09/17/2024 10:22 AM EST Narrative [facility] - 09/17/2024 9:57 PM EST FASTING:NO FASTING: NO Ronna Lopez [facility] BLOOD ORDERABLES Final Resul t [facility] [address] [place] [address] [facility] [address] [place] [address] * (ABNORMAL) Hemoglobin A1c with Calculated Mean Plasma Glucose (MPG) (09/17/2024 10:21 AM EST) Hemoglobin A1c 5.8(H) <5.7 % of total Hgb [facility] Comment: For someone without known diabetes, a [...] children. Mean Plasma Glucose 129 mg/dL (calc) [facility] [place] [facility] 09/17/2024 10:2 1 AM EST 09/17/2024 10:22 AM EST Narrative [facility] - 09/17/2024 9:57 PM EST FASTING:NO FASTING: NO Ronna Lopez [facility] BLOOD ORDERABLES Final Resul t [facility] [address], [place] [address] [facility] [place] [facility] [address] [place] [address] * (ABNORMAL) CBC auto differential (09/17/2024 10:21 AM EST) White Blood Cell Count 9.5 3.8 - 10.8 Thousand/ uL [facility] [place] [facility] Red Blood Cell Count 4.77 3.80 - 5.10 Million/u L [facility] [place] [facility] Hemoglobin 14.1 11.7 - 15.5 g/dL [facility] Hematocrit 43.0 35.0 - 45.0 % [facility] MCV 90.1 80.0 - 100.0 fL [facility] MCH 29.6 27.0 - 33.0 pg [facility] [place] [facility] MCHC 32.8 32.0 - 36.0 g/dL [facility] [place] [facility] Comment: For adults, a slight decrease in the calculated MCHC value (in the range of 30 to 32 g/dL) is most likely not clinically significant; however, it should be interpreted with caution in correlation with other red cell parameters and the patient's clinical condition. RDW 13.1 11.0 - 15.0 % [facility] Platelet Count 372 140 - 400 Thousand/ uL [facility] MPV 10.6 7.5 - 12.5 fL [facility] [place] [facility] Absolute Neutrophils 5,928 1,500 - 7,800 cells/uL [facility] [place] [facility] Absolute Lymphocytes 2,394 850 - 3,900 cells/uL [facility] Absolute Monocytes 447 200 - 950 cells/uL [facility] Absolute Eosinophils 627(H) 15 - 500 cells/uL [facility] Absolute Basophils 105 0 - 200 cells/uL [facility] Neutrophils 62.4 % [facility] Lymphocytes 25.2 % [facility] Monocytes 4.7 % [facility] Eosinophils 6.6 % [facility] Basophils 1.1 % [facility] Blood Venous blood specimen / Unknown 09/17/2024 10:21 AM EST 09/17/2024 10:22 AM EST Narrative [facility] - 09/17/2024 9:57 PM EST FASTING:NO FASTING: NO Ronna Lopez [facility] BLOOD ORDERABLES Final Resul t Performing Organization Address [facility] de Phone Number [facility] [address], [place] [address] [facility] [place] [facility] [address] [place] [address] * Vitamin B12 (09/17/2024 10:21 AM EST) Vitamin B12 322 200 - 1,100 pg/mL [facility] Comment: Please Note: Although the reference range [...] PM EST FASTING:NO FASTING: NO Ronna Lopez [facility] BLOOD ORDERABLES Final Resul t [facility] 200 [facility], [place] [address] [facility] [place] [facility] [address] [place] [address] * (ABNORMAL) Comprehensive Metabolic Panel (09/17/2024 10:21 AM EST) Glucose 174(H) 65 - 139 mg/dL [facility] Comment: ? Non-fasting reference interval Urea Nitrogen (BUN) 12 7 - 25 mg/dL [facility] [place] [facility] Creatinine, Serum 0.91 0.50 - 1.05 mg/dL [facility] [place] [facility] eGFR 70 > OR = 60 mL/min/1. 73m2 [facility] [place] [facility] BUN/Creatinine Ratio SEE NOTE: (calc) [facility] [place] [facility] Comment: ?? Not Reported: BUN and Creatinine are within ?? reference range. ? Sodium 140 135 - 146 mmol/L [facility] Potassium 4.3 3.5 - 5.3 mmol/L [facility] Chloride 104 98 - 110 mmol/L [facility] Carbon Dioxide 23 20 - 32 mmol/L [facility] Calcium 9.5 8.6 - 10.4 mg/dL [facility] Protein, Total 6.9 6.1 - 8.1 g/dL [facility] Albumin 4.3 3.6 - 5.1 g/dL [facility] Globulin 2.6 1.9 - 3.7 g/dL (calc) [facility] Albumin/Globuli n Ratio 1.7 1.0 - 2.5 (calc) [facility] Bilirubin, Total 0.3 0.2 - 1.2 mg/dL [facility] Alkaline Phosphatase 46 37 - 153 U/L [facility] AST 17 10 - 35 U/L [facility] ALT 18 6 - 29 U/L [facility] Blood Venous blood specimen / Unknown 09/17/2024 10:21 AM EST 09/17/2024 10:22 AM EST Narrative [facility] - 09/17/2024 9:57 PM EST FASTING:NO FASTING: NO us Ronna Lopez [facility] BLOOD ORDERABLES Final Resul t Performing Organization Address [facility] de Phone Number [address], [facility] [[email or web address] [place] [address] [facility] [place] [facility] [address] [place] [phone] * Albumin, Random Urine W/Creatinine (05/22/2024 11:41 AM EDT) Creatinine, Random Urine 91 20 - 275 mg/dL [facility] [place] [facility] Albumin, Urine 0.9 See Note: mg/dL [facility] Comment: Reference Range: Reference Range Not established Albumin/Creatinin e Ratio, Random Urine 10 <30 mg/g creat [facility] Comment: The ADA defines abnormalities in albumin [...] EDT FASTING:NO FASTING: NO us Ynes Cherry SURFACE SUPERVISOR LAB URINE ORDERABLES Final Res ult Performing Organization Address [facility] de Phone Number [address], [place] [address] [facility] [place] [facility] [address] [place] [phone] * BI Mammogram Screening Tomosynthesis Bilateral (01/05/2024 [...] (Benign) Lay letter mailed to patient WSN: [id number] Ordering Physician: Ynes Cherry Dictated By: ?Juwan Romano MD Dictated Date/Time: ?01/05/24 4:58 pm Reviewed By: ?Juwan Romano MD Signed By: ? Juwan Romano MD Signed Date/Time: ? 01/05/24 4:58 pm Transcribed By: ? CSB Filling Layer Up Date/Time: ? 01/05/24 4:54 pm Birads: Procedure Note Nani Image - 01/05/2024 PROCEDURE: MM Digital Mammo [...] (Benign) Lay letter mailed to patient WSN: [id number] Ordering Physician: Ynes Cherry Dictated By: Juwan Romano MD Dictated Date/Time: 01/05/24 4:58 pm Reviewed By: Juwan Romano MD Signed By: Juwan Romano MD Signed Date/Time: 01/05/24 4:58 pm Transcribed By: SHANA Filling Layer Up Date/Time: 01/05/24 4:54 pm Birads: Ynes GALEANA IMG BI PROCEDURES Final Result * Hm Diabetes Eye Exam (06/13/2023) Eye Exam Normal Normal Comment:REPEAT EYE EXAMIN 1 MONTH Historical Provider HEALTH MAINTENANCE Final Result * Occult Blood, Fecal, Immunoassay (04/04/2023 9:25 AM EDT) Fecal Occult Blood, Immunochemical (FIT) NEGATIVE (NEG) [facility] Comment: Testing performed or reported by [facility], a Service of [facility], [address] [place] [address] King Hamm MD, Deputy Court [facility]# [id number] 04/04/2023 9:25 AM EDT 04/10/2023 9:31 AM EDT Ynes GALEANA LAB BODY FLUIDS AND STOOLS ORD ERABLES Final Result [facility] [address] [place] [address] * Colonoscopy (04/29/2022) Colonoscopy FIT NEGATIVE Historical Provider HEALTH MAINTENANCE Final Result * Hepatitis C Antibody (02/11/2019) Hepatitis C Antibody Nonreactive Blood Historical Provider HEALTH MAINTENANCE Final Result from Last 3 Months or Most Recently Relevant to Health Maintenance Insurance [facility] STANDARD MEDICARE * Guarantor: Matilde Ferrer Account Type Relation to Patient Date of Phone Billing Address Dental Self Care Teams Catcher Filter Tip Relationship Specialty Start Date End Date Ronna Lopez FNP [address] [place] [address] PCP - General Family Medicine 09/02/24 Felicia Mcdermott RN [address] [place] [address] Ict Quality Assurance Engineer 05/24/23 Reina Shen [address] [place] [address] [facility] 08/30/23
--- OUTSIDE RECORDS SUMMARY | 2024-12-09 08:21 | XMS_ITS | Encounter Summary ---
Author Organization [employer] Address [address] [facility] 7t [place] [address] Care Team Providers Care Privacy Director Name Role Phone Ynes Cherry Primary Care Provider [phone] Felicia Mcdermott RN Unavailable Reina Shen Unavailable Ronna Lopez PROFESSOR OF FINANCE Primary Care Provider [phone] Reason for Visit * Reason Comments Med Refill Encounter Details Date Type Department Care Team (Late st Contact Info) Description 06/11/2024 Refill [facility] [address] [place] [address] Ynes Cherry FNP [address] [place] [phone] Social History Tobacco Use Types Packs/Day [...] Center 09/17/2024 10:00 AM Felicia Mcdermott RN [facility] Comments: documented in this encounter Plan of Treatment Upcoming Encounters Date Type Department Care Team (Late st Contact Info) Description 03/25/2025 10:00 AM EDT Clinical Support [address] [phone] Felicia Mcdermott RN [address] [place] [phone] documented as of this encounter Visit Diagnoses Not on filedocumented in this encounter Additional Health Concerns Assessment Noted Time PHQ-9 Depression Total Score: 4 02/03/20 23 9:35 AM EDT documented as of this encounter Care Teams Privacy Director Relationship Specialty Start Date End Date Ynes Cherry FNP PCP - General Family Medicine 02/02/23 09/01/24 Ronna Lopez FNP [address] [place] [phone] PCP - General Family Medicine 09/02/24 Felicia Mcdermott RN [address] [place] [address] Sane Nurse 05/24/23 Reina Shen [address] [place] [phone] [facility] 08/30/23 documented as of this encounter
--- OUTSIDE RECORDS SUMMARY | 2024-12-09 08:22 | XMS_ITS | Encounter Summary ---
Author Organization [employer] Address [address] [facility] 7t [place] [address] Care Team Providers Care Artillery Specialist Name Role Phone Ynes Cherry Primary Care Provider [phone] Felicia Mcdermott RN Unavailable Reina Shen Unavailable Ronna Lopez MILL ORDER SCHEDULER Primary Care Provider [phone] Encounter Details Date Type Department Care Team (Late st Contact Info) Description 06/09/2023 Abstract [facility] [address] [place] [phone] Ynes Cherry FNP [address] [place] [phone] Social History Tobacco Use Types Packs/Day Years [...] Description 03/25/2025 10:00 AM EDT Clinical Support [address] [phone] Felicia Mcdermott RN [address] [place] [phone] documented as of this encounter Visit Diagnoses Not on filedocumented in this encounter Additional Health Concerns Assessment Noted Time PHQ-9 Depression Total Score: 4 02/03/20 23 9:35 AM EDT documented as of this encounter Care Teams Artillery Specialist Relationship Specialty Start Date End Date Ynes Cherry FNP PCP - General Family Medicine 02/02/23 09/01/24 Ronna Lopez FNP [address] [place] [phone] PCP - General Family Medicine 09/02/24 Felicia Mcdermott RN [address] [place] [phone] Cooler Deliverer 05/24/23 Reina Shen [address] [place] [phone] [facility] 08/30/23 documented as of this encounter
== END 2024-12-06 08:04 | disposition home or self-care (01) ==
LOC: HO.HOSX 08:03
PROVIDERS: Visit Provider Physician Assistant
DX: S42.301D Unspecified fracture of shaft of humerus, right arm, subsequent encounter for fracture with routine healing (principal)
CPT/HCPCS: 29105; 73060; 99212

== ENCOUNTER 2024-12-06 10:22 | Outpatient (AMB) | payer MEDICARE, MEDICAID, SELFPAY ==
[2024-12-06 10:32] VITALS: BMI 25.7
--- NOTE | 2024-12-06 10:32 | A.OFFVIS_ITS ---
Vital Signs 12/06/24 10:32 Height 5 ft 8 in Weight 169 lb BMI 25.7 Intake Visit Reasons: OV-Rt shoulder humerus shaft fx W/XR Intake Note: Matilde is a 63 year old right hand dominant female who presents today a follow up of RT humerus fracture, DOI 10/15/24. Patient reports she is doing well, states pain is tolerable but she is in a lot of discomfort. Allergies No Known Allergies Allergy (Verified 12/06/24 10:34) Medication List - Last Reconciled 12/06/24 by Ruben Solomon PA-C acetaminophen 500 mg PO Q6H PRN aripiprazole 5 mg PO DAILY bisacodyl 10 mg [place] DAILY PRN dextrose 40% (Glutose-45) 10 grams PO Q15M PRN glucagon (GlucaGen HypoKit) 1 mg subcut Q20M PRN hydromorphone (Dilaudid) 4 mg PO Q6H PRN hydroxyzine HCl 25 mg PO BID PRN hydroxyzine pamoate 25 mg PO BID PRN ibuprofen 600 mg PO Q8H PRN insulin degludec (Tresiba FlexTouch U-100 insulin) 20 units subcut BID lisinopril 5 mg PO DAILY lurasidone 60 mg PO DAILY magnesium hydroxide (Milk of Magnesia) 5 mL PO DAILY PRN metformin 1,000 mg PO DAILY ondansetron HCl 4 mg PO Q6H rosuvastatin 10 mg PO DAILY sodium phosphates 19-7 gram/118 mL (Fleet Enema) 118 mL [place] DAILY PRN HPI HPI OV-Rt shoulder humerus shaft fx W/XR: Details: 63-year-old female returns to the office today approximately 2 months status post right humeral shaft fracture. She continues to use the He brace however it is difficult to use as it continued news to slipped down. She is also struggling with her posture and mechanics which is causing her to flex up at the trap region and displaced the fracture. [facility] Social History (Updated 10/28/24 @ 09:27 by Kaila Alegre) Alcohol intake: never Patient Tobacco Use Status: Never used Tobacco Current occupational status: retired and disabled Current occupation: right hand dominant Review of Systems Const All systems reviewed & are unremarkable except as noted in HPI and below Physical Exam Vital Signs: BMI result Body Mass Index 25.7 Const General: cooperative, healthy appearing, comfortable, no acute distress, well developed and alert Orientation/consciousness: patient oriented x3 HEENT Head: Yes normal to inspection, Yes normocephalic and Yes atraumatic Eyes General: appearance normal, both eyes and all related structures Neck Neck: Yes normal visual inspection and Yes no lymphadenopathy Resp Effort & Inspection: normal respiratory effort and able to speak in complete sentences Cardio Rate: regular rate Peripheral pulses: Peripheral pulses 2+ throughout GI Inspection: Yes normal to inspection Palpation (GI): Soft to palpation Skin General skin exam: no rashes or lesions noted Neuro General: patient oriented x3 Extrem Other: On exam of the right shoulder skin is intact, no open wounds. She holds her upper extremity in a flexed position which displaces the fracture. When I relax the shoulder and straight in the elbow I am able to reduce the fracture Neurovascularly intact Psych Appearance: grossly normal Mental Status: mental status grossly normal Office Procedures Casting/Splints 46179-[id number] arm splint application Procedure code (CPT) selection complete Results Reviewed Results Reviewed: X-rays of the right humerus obtained in the office today and reviewed by me show displaced and angulated humeral shaft fracture which is reducible Assessment & Plan Assessment & Plan (1) Fracture of humeral shaft, right, closed: Code(s): S42.301A - Unspecified fracture of shaft of humerus, right arm, initial encounter for closed fracture Category: Medical Qualifiers: Encounter type: subsequent encounter Fracture morphology: other fracture Plan: I discussed the case with Dr. Wolf over phone and further explained the extent of the injury to the patient and her daughter in the office today and options available today given delayed healing and ongoing displacement which include surgical intervention. I explained the procedure in detail along with the length of recovery and rehab course. I explained the risk, benefits and alternatives. Risk including, but not limited to infection, blood clots, bleeding, non union or malunion and injury to nerve/tissue/ bone . I answered all their questions and with their understanding they have consented to move forward with right humerus intramedullary nail . The patient will be booked accordingly. All questions answered. Patient was placed in a custom molded splint in the office today. Orders: Orders XR humerus RT Today S42.301A - Unspecified fracture of shaft of humerus, right arm, initial encounter for closed fracture Coding Level of Care Code Est Pt Level 4 (23038) Complex EM visit Add On G2211 Diagnoses Fracture of humeral shaft, right, closed S42.301A Encounter type: subsequent encounter Fracture morphology: other fracture CPT Codes Splint - CPT: 41968-[id number] arm splint application ([id number])
--- OUTSIDE RECORDS SUMMARY | 2024-12-06 11:11 | XMS_ITS | Encounter Summary ---
Author Organization [facility] [employer] [facility] Address [address] [place] [address] 7 [place] [address] Care Team Providers Care Precision Honing Machine Operator Name Role Phone Deedee Chappell MD Primary Care Provider Terri Bennett [facility] Primary Care Provider Unavail able [place] Unassigned Primary Care Provider U Ynes Bower SUPERVISOR TITLE Primary Care Provider Ynes Cherry [facility] Primary Care Provider Felicia Mcdermott RN Unavailable Reina Shen Unavailable Ronna Lopez [facility] Primary Care Provider Encounter Details Date Type Department Care Team (Late st Contact Info) Description 07/18/[address] [phone] Deedee Chappell MD [address] [place] [address] Social History Tobacco Use Types Packs/Day Years [...] Care Team (Late st Contact Info) Description 12/10/2024 12:40 PM EDT Office Visit [address] [phone] Ronna Lopez FNP [address] [place] [address] 03/25/2025 10:00 AM EDT Clinical Support [address] [phone] Felicia Mcdermott, RN [address] [place] [address] documented as of this encounter Visit Diagnoses Not on filedocumented in this encounter Care Teams Precision Honing Machine Operator Relationship Specialty Start Date End Date Deedee Chappell MD [address] [place] [address] PCP - General Family Medicine 07/18/22 08/08/22 Terri Bennett FNP [address] [place] [address] PCP - General Family Medicine 08/09/22 12/05/22 [place] Unassigned PCP - General Family Medicine 12/06/22 12/20/22 Ynes Cherry FNP PCP - General Family Medicine 12/21/22 12/21/22 Ynes Cherry FNP PCP - General Family Medicine 02/02/23 09/01/24 Ronna Lopez FNP [address] [place] [address] PCP - General Family Medicine 09/02/24 Felicia Mcdermott, RN [address] [place] [address] Contact Lens Blocker 05/24/23 Reina Shen [address] [place] [address] [facility] 08/30/23 documented as of this encounter
--- OUTSIDE RECORDS SUMMARY | 2024-12-06 11:11 | XMS_ITS | Encounter Summary ---
Author Organization [employer] Address [address] [facility] 7t [place] [address] Care Team Providers Care Heel Nail Rasper Name Role Phone Jo AnnYnes GRAPHIC DESIGN INTERN Primary Care Provider [phone] Felicia Mcdermott RN Unavailable Reina Shen Unavailable Ronna Lopez GRAPHIC DESIGN INTERN Primary Care Provider [phone] Encounter Details Date Type Department Care Team (Late st Contact Info) Description 01/10/2024 Orders Only [facility] Information Management [address] [place], [place] [phone] Provider, Not In System Social History Tobacco [...] the past 12 months, has t he [employer], gas, oil or water company threatened to [...] Description 12/10/2024 12:40 PM EDT Office Visit [address] [phone] Ronna Lopez FNP [address] [place] [address] 03/25/2025 10:00 AM EDT Clinical Support [address] [phone] Felicia Mcdermott RN [address] [place] [address] documented as of this encounter Procedures Procedure [...] documented as of this encounter Care Teams Heel Nail Rasper Relationship Specialty Start Date End Date Ynes Cherry FNP PCP - General Family Medicine 02/02/23 09/01/24 Ronna Lopez FNP [address] [place] [address] PCP - General Family Medicine 09/02/24 Felicia Mcdermott, RN [address] [place] [address] Ferryboat Captain 05/24/23 Reina Shen [address] [place] [address] [facility] 08/30/23 documented as of this encounter
--- OUTSIDE RECORDS SUMMARY | 2024-12-06 11:11 | XMS_ITS | Encounter Summary ---
Author Organization [employer] Address [address] [facility] 7t [place] [address] Care Team Providers Care Game Artist Name Role Phone Ynes Cherry Primary Care Provider [phone] Felicia Mcdermott RN Unavailable Reina Shen Unavailable Ronna Lopez AWNING FINISHER Primary Care Provider [phone] Encounter Details Date Type Department Care Team (Late st Contact Info) Description 02/06/2023 Telephone [facility] [address] [place] [phone] Ynes Cherry FNP [address] [place] [address] [phone] Social History Tobacco Use Types Packs/Day Years [...] Description 12/10/2024 12:40 PM EDT Office Visit [address] [phone] Ronna Lopez FNP [address] [place] [address] 03/25/2025 10:00 AM EDT Clinical Support [address] [phone] Felicia Mcdermott RN [address] [place] [address] documented as of this encounter Visit Diagnoses Not on filedocumented in this encounter Additional Health Concerns Assessment Noted Time PHQ-9 Depression Total Score: 4 02/03/20 23 9:35 AM EDT documented as of this encounter Care Teams Game Artist Relationship Specialty Start Date End Date Ynes Cherry FNP PCP - General Family Medicine 02/02/23 09/01/24 Ronna Lopez FNP [address] [place] [address] PCP - General Family Medicine 09/02/24 Felicia Mcdermott, RN [address] [place] [phone] Horticultural Agent 05/24/23 Reina Shen [address] [place] [address] [facility] 08/30/23 documented as of this encounter
--- OUTSIDE RECORDS SUMMARY | 2024-12-06 11:11 | XMS_ITS | Clinical Summary ---
Author Organization [employer] Address [address] [place] [address] [address] [place] [address] Care Team Providers Care Brush Head Maker Name Role Phone Felicia Mcdermott RN Unavailable Reina Shen Unavailable Ronna Lopez Primary Care Provider [phone] Allergies Active Allergy Reactions Criticality Noted Date Comments Codeine Nausea And Vomiting Low 08/19/2013 Other reaction(s): Nausea, Vomiting, Diarrhea Oxycodone-Acetaminoph en Nausea And Vomiting Low 08/19/2013 Other reaction(s): Nausea, Vomiting, Diarrhea Medications FreeStyle lancetsIndication s:Type 2 diabetes mellitus with diabetic neuropathy, with long-term current use of insulin (CMS/FORMERLY [facility]) 1 each by Other route 4 times daily. 400 each 3 023 Active glucose blood (FREESTYLE LITE) test stripIndications: Type 2 diabetes mellitus with diabetic neuropathy, with long-term current use of insulin (CMS/HCC) 1 each by Other route 2 times daily. 400 each 3 023 Active insulin degludec (Tresiba FlexTouch) 100 UNIT/ML injectionIndicati ons:Type 2 diabetes mellitus with diabetic neuropathy, with long-term current use of insulin (CMS/FORMERLY [facility]) ADMINISTER UP TO 78 UNITS UNDER THE SKIN DAILY IN THE MORNING 70 mL 3 024 Active metFORMIN XR (Glucophage-XR) 500 MG 24 hr tabletIndications :Type 2 diabetes mellitus with diabetic neuropathy, with long-term current use of insulin (CMS/HCC) 500mg tabs, 2 tabs twice daily 360 tablet 3 024 Active cholecalciferol (Vitamin D-3) 25 MCG (1000 UT) capsuleIndication s:Vitamin D deficiency Take 1 capsule (25 mcg) by mouth Once per day. 90 capsule 3 024 Active empagliflozin (Jardiance) 25 MGIndications:Typ e 2 diabetes mellitus with other specified complication, unspecified whether terminal manager insulin use ([facility]/FORMERLY [facility]) TAKE 1 TABLET(25 MG) BY MOUTH IN THE MORNING 90 tablet 3 024 Active insulin aspart (NovoLOG FLEXPEN) 100 UNIT/ML penIndications:Ty pe 2 diabetes mellitus with diabetic neuropathy, with long-term current use of insulin ([facility]) Sliding scale inject under the skin. Sliding scale with meals 70-110 none 111-150 2U 151-200 4 201-250 6 251-300 8 301-350 10 351-400 12 30 mL 11 024 Active insulin aspart, with niacinamide, (Fiasp) 100 UNIT/ML injectionIndicati ons:Type 2 diabetes mellitus with diabetic neuropathy, with long-term current use of insulin ([facility]) Inject subcutaneousl y- Sliding scale TID with meals 70-110: none 111-150: 2U 151-200: 4U 201-250: 6U 251-300: 8U 301-350: 10U 351-400: 12U 30 mL 3 024 Active BD Pen Needle Nia 2nd Gen 32G X 4 MM miscIndications:T ype 2 diabetes mellitus with diabetic neuropathy, with long-term current use of insulin ([facility]) USE TO INJECT 4 TIMES DAILY 400 each 3 024 Active lisinopril 5 MG tabletIndications :Primary hypertension Take 1 tablet (5 mg) by mouth Once per day. 90 tablet 3 025 Active rosuvastatin (Crestor) 10 MG tabletIndications :Type 2 diabetes mellitus with diabetic neuropathy, with long-term current use of insulin ([facility]),Hyperli pidemia, unspecified hyperlipidemia type TAKE 1 TABLET(10 MG) BY MOUTH DAILY 90 tablet 3 025 Active Ozempic, 1 MG/DOSE, 4 MG/3ML solution pen-injector INJECT 1MG SUBCUT ONCE WEEKLY 3 mL 1 025 Active hydrOXYzine HCl (Atarax) 5 mg split tablet 25 mg. 11/12/2 020 Active acetaminophen (Tylenol) 500 MG tablet Take 1,000 mg by mouth every 8 (eight) hours. Active ARIPiprazole (Abilify) 5 MG tablet Take 5 mg by mouth at bed time. Active Zofran 4 MG tablet Take 4 mg by mouth. Active metFORMIN, OSM, (Fortamet) 1000 MG 24 hr tablet Take 1,000 mg by mouth every 12 (twelve) hours. Active ibuprofen 600 MG tabletIndications :Closed fracture of proximal end of right humerus with routine healing, unspecified fracture morphology, subsequent encounter Take 1 tablet (600 mg) by mouth 3 times daily. 90 tablet 025 2024 Active HYDROmorphone (Dilaudid) 4 MG tabletIndications :Closed fracture of proximal end of right humerus with routine healing, unspecified fracture morphology, subsequent encounter Take 0.5 tablets (2 mg) by mouth every 4 (four) hours if needed for severe pain for up to 28 days. 84 tablet 025 2024 Active ketoconazole (NIZOral) 2 % shampooIndication s:Seborrhea capitis Apply topically 2 (two) times a week. 120 mL 3 Active sulfamethoxazole- trimethoprim (Bactrim DS) 800-160 MG tablet Take 1 tablet by mouth 2 times daily for 10 days. 20 tablet 025 2024 Active hydrOXYzine HCl (Atarax) 25 MG tabletIndications :Schizoaffective disorder, depressive type (CMS/HCC) 023 2024 Discontinued QUEtiapine (SEROquel) 100 MG tabletIndications :Schizoaffective disorder, depressive type (CMS/HCC) 023 2024 Discontinued lurasidone (Latuda) 60 MG tablet TAKE 1 TABLET BY MOUTH AT BEDTIME WITH FOOD 023 2024 Discontinued HYDROmorphone (Dilaudid) 4 MG tabletIndications :Closed fracture of proximal end of right humerus with routine healing, unspecified fracture morphology, subsequent encounter Take 0.5 tablets (2 mg) by mouth every 4 (four) hours if needed for severe pain for up to 7 days. 14 tablet 025 2024 Discontinued(R eorder (will not trigger notification to Pharmacy)) Active Problems Problem Noted Date Diagnosed Date Seborrhea capitis 11/22/2024 Cervical radiculopathy 02/02/2023 Class 1 obesity with [...] major depressive disorder, without psychotic features 03/20/2020 intermediate current use of oral hypoglycemic drug 03/20/2020 Overview (07/18/2022): Note: Unchanged Menopausal state 11/27/2018 Hypertension 03/31/2016 Vitamin D deficiency 10/21/2013 Cervicalgia 05/20/2013 Overview (07/18/2022): Note: degenerative disc dx at c5-6 and c6-7 Fatty liver 11/15/2012 Hyperlipidemia 05/08/2012 Absence of both cervix and uterus, 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 Encounters Date Type Department Care Team Description 11/26/2024 Orders Only [address] [phone] Ronna Lopez FNP Staph infection (Primary Dx) 11/22/2024 12:40 PM EDT Office Visit [address] [phone] Ronna Lopez FNP Seborrhea capitis (Primary Dx); Closed fracture of proximal end of right humerus with routine healing, unspecified fracture morphology, subsequent encounter; Localized swelling on right hand 11/22/[address] [phone] Ronna Lopez FNP 11/15/2024 1:40 PM EDT Office Visit [address] [phone] Ronna Lopez FNP Closed fracture of proximal end of right humerus with routine healing, unspecified fracture morphology, subsequent encounter (Primary Dx) 11/12/2024 Patient Outreach [address] [place] [address] Stephanie English LPN Transition Of Care (Tcm) (LEXY, discharged from snf 11/11/2024) 11/08/2024 Population Health Risk Score [facility] ([facility]) Department [address] [place] [phone] Provider, Population Health Generic 11/07/[address] [phone] Ronna Lopez FNP Care Coordination (I spoke to patient regarding Dexcom follow up. Patient reports he fractured her humerus and is in a rehab center. I advised she can call us when she gets back home to follow up with Felicia.) 10/02/[address] [phone] Ronna Lopez FNP 10/02/[address] [phone] Ynes Cherry FNP Type 2 diabetes mellitus with diabetic neuropathy, with long-term current use of insulin ([facility]); Hyperlipidemia, unspecified hyperlipidemia type 09/30/[address] [place] [phone] Ronna Lopez FNP Primary hypertension 09/29/[address] [phone] Ynes Cherry FNP Primary hypertension 09/17/2024 10:00 AM EST Clinical Support [address] [phone] Felicia Mcdermott, RN Type 2 diabetes mellitus with diabetic neuropathy, with long-term current use of insulin ([facility]) from Last 3 Months Immunizations Name [...] Sign Reading Time Taken Comments Blood Pressure 129/78 11/22/2024 12:51 PM EDT Pulse 85 11/22/2024 12:51 PM EDT Temperature 36.4 ??C (97.6 ??F) 11/22/2024 12:51 PM E DT Respiratory Rate - - Oxygen Saturation 98% 11/22/2024 12:51 PM EDT Inhaled Oxygen Concentration - - Weight 77.6 kg (171 lb) 11/22/2024 12:51 PM EDT Height 165.4 cm (5' 5.1 ) 11/22/2024 12:51 PM ED T Body Mass Index 28.37 11/22/2024 12:51 PM EDT Plan of Treatment Upcoming Encounters Date Type Department Care Team (Late st Contact Info) Description 12/10/2024 12:40 PM EDT Office Visit [address] [phone] Ronna Lopez FNP [address] [place] [phone] 03/25/2025 10:00 AM EDT Clinical Support [address] [phone] Felicia Mcdermott, RN [address] [place] [phone] Health Maintenance Due Date Last Done Comments [...] Procedure Name Priority Date/Time Associated Diagnosis Comments CULTURE, AEROBIC BACTERIA Routine 11/22/2024 3:31 PM EDT Seborrhea capitis LIPID PANEL WITH REFLEX TO DIRECT LDL Routine 09/17/2024 10:21 AM EST Type 2 diabetes mellitus with diabetic neuropathy, with long-term current use of insulin ([facility]) COMPREHENSIVE METABOLIC PANEL Routine 09/17/2024 10:21 AM EST Type 2 diabetes mellitus with diabetic neuropathy, with long-term current use of insulin ([facility]) VITAMIN B12 Routine 09/17/2024 10:21 AM EST Type 2 diabetes mellitus with diabetic neuropathy, with long-term current use of insulin ([facility]) CBC WITH AUTO DIFFERENTIAL Routine 09/17/2024 10:21 AM EST Type 2 diabetes mellitus with diabetic neuropathy, with long-term current use of insulin ([facility]) HEMOGLOBIN A1C WITH MPG Routine 09/17/2024 10:21 AM EST Type 2 diabetes mellitus with diabetic neuropathy, with long-term current use of insulin ([facility]) ALBUMIN, RANDOM URINE W/CREATININE Routine 05/22/2024 11:41 AM EDT Diabetes mellitus without complication (CMS/HCC) BI MAMMOGRAM SCREENING TOMOSYNTHESIS BILATERAL Routine 01/05/2024 2:20 PM EDT HM DIABETES EYE EXAM Routine 06/13/2023 OCCULT BLOOD, FECAL, IMMUNOASSAY Routine 04/04/2023 9:25 AM EDT Encounter for screening for malignant neoplasm of colon HM COLONOSCOPY Routine 04/29/2022 HM HEPATITIS C ANTIBODY Routine 02/11/2019 from Last 3 Months or Most Recently Relevant to Health Maintenance Results * (ABNORMAL) Culture, Aerobic Bacteria (11/22/2024 3:31 PM EDT) Pathologist [facility] Culture, Aerobic Bacteria SEE NOTE(A) [facility] Comment: ??CULTURE, AEROBIC BACTERIA ?Micro Number: ?[id number] ??Test Status: ? Final ??Specimen Source: ?? Scalp ??Specimen Quality: ??Adequate ??Result: ?Moderate growth of Staphylococcus aureus ??COMMENT: ? Skin tej also present. ?S.aureus ?INT ?? RICHARD ?? CIPROFLOXACIN ?S ? <=0.5 ?? CLINDAMYCIN ?S ? <=0.25 ?? ERYTHROMYCIN ? S ? <=0.25 ?? GENTAMICIN ? S ? <=0.5 ?? LEVOFLOXACIN ? S ? 0.25 ?? MOXIFLOXACIN ? S ? <=0.25 ?? OXACILLIN ?S ? 0.5 1 ?? TETRACYCLINE ? S ? <=1 ?? TRIMETHOPRIM/SULFA ? S ? <=10 ?? VANCOMYCIN ? S ? 1 S = Susceptible ??I = Intermediate ??R = Resistant ??NS = Not susceptible SDD = Susceptible Dose Dependent ??* = Not Tested ??NR = Not Reported NN = See Therapy Comments THERAPY COMMENTS ?Note 1: ?Oxacillin susceptible staphylococci are ?susceptible to other penicillinase-stable ?penicillins (e.g., methicillin, nafcillin), beta- ?lactam/beta-lactamase inhibitor combinations, and ?cephems with staphylococcal indications, including ?cefazolin. Skin Scalp structure / Unknown 11/22/2024 3:31 PM EDT 11/22/2024 3:32 PM EDT Narrative [facility] - 11/25/2024 11:27 AM EDT FASTING:UNKNOWN FASTING: UNKNOWN Ronna Lopez INSURANCE LOSS CONTROL SURVEYOR LAB MICROBIOLOGY - GENERAL ORDER PHUONG Final Result [facility] [address] [facility], [facility], [place] [address] [facility] [email or web address] [address] [place] [address] * (ABNORMAL) Lipid Panel with Reflex to Direct LDL (09/17/2024 10:21 AM EST) Cholesterol, Total 119 <200 mg/dL [facility] [email or web address] HDL Cholesterol 38(L) > OR = 50 mg/dL [facility] [email or web address] Triglycerides 263(H) <150 mg/dL [facility] [email or web address] Comment: If a non-fasting specimen was collected, consider repeat triglyceride testing on a fasting specimen if clinically indicated. Chema et al. J. of Clin. Lipidol. 2015;9:129-169. LDL Cholesterol 50 mg/dL [facility] [email or web address] Comment: Reference range: <100 Desirable range <100 mg/dL for primary prevention; ?? <70 mg/dL for patients with CHD or diabetic patients with > or = 2 CHD risk factors. LDL-C is now calculated using the Elizabet calculation, which is a validated novel method providing better accuracy than the Friedewald equation in the estimation of LDL-C. Shahram SS et al. ARIANE. 2013;310(19): 6939-8683 (http://education.[employer]/faq/PSW858) Chol/HDLC Ratio 3.1 <5.0 (calc) [facility] [email or web address] Non-HDL Cholesterol 81 <130 mg/dL [facility] [email or web address] Comment: For patients with diabetes plus 1 major ASCVD risk factor, treating to a non-HDL-C goal of <100 mg/dL (LDL-C of <70 mg/dL) is considered a therapeutic option. Blood 09/17/2024 10:2 1 AM EST 09/17/2024 10:22 AM EST Narrative [facility] - 09/17/2024 9:57 PM EST FASTING:NO FASTING: NO Ronna Lopez [facility] LAB BLOOD ORDERABLES Final Resul t [facility] [address], [place] [address] [facility] [place] [email or web address] [address] [place] [address] * (ABNORMAL) Hemoglobin A1c with Calculated Mean Plasma Glucose (MPG) (09/17/2024 10:21 AM EST) Hemoglobin A1c 5.8(H) <5.7 % of total Hgb [facility] [email or web address] Comment: For someone without known diabetes, a [...] children. Mean Plasma Glucose 129 mg/dL (calc) [facility] [email or web address] 09/17/2024 10:2 1 AM EST 09/17/2024 10:22 AM EST Narrative [facility] - 09/17/2024 9:57 PM EST FASTING:NO FASTING: NO Ronna Lopez [facility] LAB BLOOD ORDERABLES Final Resul t [address], [place] [address] [facility] [place] [email or web address] [address] [place] [address] * (ABNORMAL) CBC auto differential (09/17/2024 10:21 AM EST) White Blood Cell Count 9.5 3.8 - 10.8 Thousand/ uL [facility] [place] [employer] Red Blood Cell Count 4.77 3.80 - 5.10 Million/u L [facility] [place] [employer] Hemoglobin 14.1 11.7 - 15.5 g/dL [facility] [place] [employer] Hematocrit 43.0 35.0 - 45.0 % [facility] [place] [employer] MCV 90.1 80.0 - 100.0 fL [facility] [place] [employer] MCH 29.6 27.0 - 33.0 pg [facility] [place] [employer] MCHC 32.8 32.0 - 36.0 g/dL [facility] [place] [employer] Comment: For adults, a slight decrease in the calculated MCHC value (in the range of 30 to 32 g/dL) is most likely not clinically significant; however, it should be interpreted with caution in correlation with other red cell parameters and the patient's clinical condition. RDW 13.1 11.0 - 15.0 % [employer] Platelet Count 372 140 - 400 Thousand/ uL [facility] [place] [facility] [facility] MPV 10.6 7.5 - 12.5 fL [facility] [employer] [place] [facility] [facility] Absolute Neutrophils 5,928 1,500 - 7,800 cells/uL [facility] [place] [facility] [facility] Absolute Lymphocytes 2,394 850 - 3,900 cells/uL [facility] Absolute Monocytes 447 200 - 950 cells/uL [facility] [place] [facility] Absolute Eosinophils 627(H) 15 - 500 cells/uL [facility] [place] [facility] Absolute Basophils 105 0 - 200 cells/uL [facility] [employer] [place] [facility] [facility] Neutrophils 62.4 % [facility] [place] [facility] [facility] Lymphocytes 25.2 % [facility] [place] [facility] [facility] Monocytes 4.7 % [facility] [employer] [place] [facility] Eosinophils 6.6 % [facility] [place] [facility] [facility] Basophils 1.1 % [facility] [employer] [place] [facility] Blood Venous blood specimen / Unknown 09/17/2024 10:21 AM EST 09/17/2024 10:22 AM EST Narrative [facility] - 09/17/2024 9:57 PM EST FASTING:NO FASTING: NO Ronna Lopez [facility] BLOOD ORDERABLES Final Resul t [facility] [address], [place] [address] [facility] [place] [email or web address] [address] [place] [address] * Vitamin B12 (09/17/2024 10:21 AM EST) Vitamin B12 322 200 - 1,100 pg/mL [facility] [place] [email or web address] Comment: Please Note: Although the reference range [...] EST FASTING:NO FASTING: NO us Ronna Lopez [facility] BLOOD ORDERABLES Final Resul t [facility] [address], [place] [address] [facility] [place] [employer] [address] [place] [address] * (ABNORMAL) Comprehensive Metabolic Panel (09/17/2024 10:21 AM EST) Glucose 174(H) 65 - 139 mg/dL [facility] [place] [employer] Comment: ? Non-fasting reference interval Urea Nitrogen (BUN) 12 7 - 25 mg/dL [facility] [place] [employer] Creatinine, Serum 0.91 0.50 - 1.05 mg/dL [facility] [place] [employer] eGFR 70 > OR = 60 mL/min/1. 73m2 [facility] [place] [employer] BUN/Creatinine Ratio SEE NOTE: 22 (calc) [facility] [place] [facility] Comment: ?? Not Reported: BUN and Creatinine are within ?? reference range. ? Sodium 140 135 - 146 mmol/L [facility] Potassium 4.3 3.5 - 5.3 mmol/L [facility] [place] [facility] [facility] Chloride 104 98 - 110 mmol/L [facility] [place] [employer] Carbon Dioxide 23 20 - 32 mmol/L [facility] Calcium 9.5 8.6 - 10.4 mg/dL [facility] Protein, Total 6.9 6.1 - 8.1 g/dL [facility] Albumin 4.3 3.6 - 5.1 g/dL [facility] Globulin 2.6 1.9 - 3.7 g/dL (calc) [facility] [place] [employer] Albumin/Globuli n Ratio 1.7 1.0 - 2.5 (calc) [facility] Bilirubin, Total 0.3 0.2 - 1.2 mg/dL [facility] [place] [employer] Alkaline Phosphatase 46 37 - 153 U/L [facility] [place] [facility] AST 17 10 - 35 U/L [facility] ALT 18 6 - 29 U/L [facility] [place] [employer] Blood Venous blood specimen / Unknown 09/17/2024 10:21 AM EST 09/17/2024 10:22 AM EST Narrative [facility] - 09/17/2024 9:57 PM EST FASTING:NO FASTING: NO us Ronna Lopez INSURANCE LOSS CONTROL SURVEYOR LAB BLOOD ORDERABLES Final Resul t Performing Organization Address [facility] de Phone Number [address], [place] [address] [facility] [place] [employer] [address] [place] [address] * Albumin, Random Urine W/Creatinine (05/22/2024 11:41 AM EDT) Creatinine, Random Urine 91 20 - 275 mg/dL [facility] [place] [employer] Albumin, Urine 0.9 See Note: mg/dL [facility] [place] [employer] Comment: Reference Range: Reference Range Not established Albumin/Creatinin e Ratio, Random Urine 10 <30 mg/g creat [facility] [place] [employer] Comment: The ADA defines abnormalities in albumin [...] EDT FASTING:NO FASTING: NO us Ynes Cherry INSURANCE LOSS CONTROL SURVEYOR LAB URINE ORDERABLES Final Res ult Performing Organization Address City/[facility]/ZIP Co de Phone Number [facility] [address] [facility], [facility], [place] [address] [facility] [address] [place] [address] * BI Mammogram Screening Tomosynthesis Bilateral (01/05/2024 [...] (Benign) Lay letter mailed to patient WSN: [id number] Ordering Physician: Ynes Cherry Dictated By: ?Juwan Romano MD Dictated Date/Time: ?01/05/24 4:58 pm Reviewed By: ?Juwan Romano MD Signed By: ? Juwan Romano MD Signed Date/Time: ? 01/05/24 4:58 pm Transcribed By: ? CSB Janitor Helper Date/Time: ? 01/05/24 4:54 pm Birads: Procedure Note Donotuseinterpreter, Image - 01/05/2024 PROCEDURE: MM Digital Mammo [...] (Benign) Lay letter mailed to patient WSN: [id number] Ordering Physician: Ynes Cherry Dictated By: Juwan Romano MD Dictated Date/Time: 01/05/24 4:58 pm Reviewed By: Juwan Romano MD Signed By: Juwan Romano MD Signed Date/Time: 01/05/24 4:58 pm Transcribed By: SHANA Janitor Helper Date/Time: 01/05/24 4:54 pm Birads: Ynes Cherry INSURANCE LOSS CONTROL SURVEYOR IMG BI PROCEDURES Final Result * Hm Diabetes Eye Exam (06/13/2023) Eye Exam Normal Normal Comment:REPEAT EYE EXAMIN 1 MONTH Historical Provider HEALTH MAINTENANCE Final Result * Occult Blood, Fecal, Immunoassay (04/04/2023 9:25 AM EDT) Fecal Occult Blood, Immunochemical (FIT) NEGATIVE (NEG) [facility] Comment: Testing performed or reported by [facility], a Service of [facility], [address] [place] [place] [address] King Hamm MD, Facsimile Machine Operator [facility]# [id number] 04/04/2023 9:25 AM EDT 04/10/2023 9:31 AM EDT Ynes Cherry INSURANCE LOSS CONTROL SURVEYOR LAB BODY FLUIDS AND STOOLS ORD ERABLES Final Result [facility] [address] [place] [address] * Colonoscopy (04/29/2022) Colonoscopy FIT NEGATIVE Historical Provider HEALTH MAINTENANCE Final Result * Hepatitis C Antibody (02/11/2019) Hepatitis C Antibody Nonreactive Blood Historical Provider HEALTH MAINTENANCE Final Result from Last 3 Months or Most Recently Relevant to Health Maintenance Insurance [facility] [employer] [place] [address] [place] [phone] * Guarantor: Matilde Ferrer Account Type Relation to Patient Date of Phone Billing Address Dental Self Care Teams Brush Head Maker Relationship Specialty Start Date End Date Ronna Lopez FNP [address] [place] [address] PCP - General Family Medicine 09/02/24 Felicia Mcdermott RN [address] [place] [address] Retail Field Representative 05/24/23 Reina Shen [address] [place] [address] Community Partner Behavioral Health 08/30/23
--- OUTSIDE RECORDS SUMMARY | 2024-12-06 11:11 | XMS_ITS | Encounter Summary ---
Author Organization [employer] Address 75 [facility] 7t [place] [address] Care Team Providers Care Hammer Fitter Name Role Phone Ynes Cherry Primary Care Provider [phone] Felicia Mcdermott RN Unavailable Reina Shen Unavailable Ronna Lopez CENTRIFUGAL WAX MOLDER Primary Care Provider [phone] Reason for Visit * Reason Comments Med Refill Encounter Details Date Type Department Care Team (Late st Contact Info) Description 06/11/2024 Refill [facility] [address] [place] [address] Ynes Cherry FNP [address] [place] [address] Social History Tobacco Use Types Packs/Day [...] Center 09/17/2024 10:00 AM Felicia Mcdermott RN [facility] Comments: documented in this encounter Plan of Treatment Upcoming Encounters Date Type Department Care Team (Late st Contact Info) Description 12/10/2024 12:40 PM EDT Office Visit [address] [address] Ronna Lopez FNP [address] [place] [address] 03/25/2025 10:00 AM EDT Clinical Support [address] [address] Felicia Mcdermott RN [address] [place] [address] documented as of this encounter Visit Diagnoses Not on filedocumented in this encounter Additional Health Concerns Assessment Noted Time PHQ-9 Depression Total Score: 4 02/03/20 23 9:35 AM EDT documented as of this encounter Care Teams Hammer Fitter Relationship Specialty Start Date End Date Ynes Cherry FNP PCP - General Family Medicine 02/02/23 09/01/24 Ronna Lopez FNP [address] [place] [address] PCP - General Family Medicine 09/02/24 Felicia Mcdermott, BETSY [address] [place] [address] Funeral Director'S Assistant 05/24/23 Reina Shen [address] [place] [address] [facility] 08/30/23 documented as of this encounter
--- OUTSIDE RECORDS SUMMARY | 2024-12-06 11:12 | XMS_ITS | Encounter Summary ---
Author Organization [employer] Address 75 [facility] 7t [place] [address] Care Team Providers Care Decision Analyst Name Role Phone Ynes Cherry Primary Care Provider [phone] Felicia Mcdermott RN Unavailable Reina Shen Unavailable Ronna Lopez CRISIS WORKER Primary Care Provider [phone] Encounter Details Date Type Department Care Team (Late st Contact Info) Description 06/09/2023 Abstract [facility] 102 [place] [address] Ynes Cherry FNP [address] [place] [address] [phone] Social History Tobacco Use Types Packs/Day Years [...] Description 12/10/2024 12:40 PM EDT Office Visit [address] [address] Ronna Lopez FNP [address] [place], [place] [phone] 03/25/2025 10:00 AM EDT Clinical Support [address] [address] Felciia Mcdermott RN [address] [place] [address] documented as of this encounter Visit Diagnoses Not on filedocumented in this encounter Additional Health Concerns Assessment Noted Time PHQ-9 Depression Total Score: 4 02/03/20 23 9:35 AM EDT documented as of this encounter Care Teams Decision Analyst Relationship Specialty Start Date End Date Ynes Cherry FNP PCP - General Family Medicine 02/02/23 09/01/24 Ronna Lopez FNP [address] [place] [address] PCP - General Family Medicine 09/02/24 Felicia Mcdermott, RN [address] [place] [address] Merchandise Presentation Manager 05/24/23 Reina Shen [address] [place] [address] [facility] 08/30/23 documented as of this encounter
--- OUTSIDE RECORDS SUMMARY | 2024-12-06 11:12 | XMS_ITS | Encounter Summary ---
Author Organization [employer] Address [address] [place] [address] 7t h Floor [place] [id number] Care Team Providers Care Haul Cane Brakeman Name Role Phone Felicia Mcdermott RN Unavailable Reina Shen Unavailable Ronna Lopez Primary Care Provider [phone] Encounter Details Date Type Department Care Team ([facility] st Contact Info) Description 11/22/2024 Telephone [facility] 102 [place] [address] Ronna Lopez FNP 102 [place] [address] Social History Tobacco Use Types Packs/Day Years [...] the past 12 months, has t he [employer], gas, oil or water [employer] threatened to shut off services in your [...] encounter Miscellaneous Notes * Telephone Encounter - Prisca Alas - 11/22/2024 1:19 PM EDT Pt stated provider wanted a follow up towards the end of November. There is a already scheduled F/U on 12/02/24. Pt would like to know if end of November apt is still needed or if the standing apt would suffice? documented in this encounter Plan of Treatment Upcoming Encounters Date Type Department Care Team (Tab Contact Info) Description 12/10/2024 12:40 PM EDT Office Visit [address] [address] Ronna Lopez FNP [address] [place] [address] 03/25/2025 10:00 AM EDT Clinical Support [address] [phone] Felicia Mcdermott, RN [address] [place], [place] [phone] documented as of this encounter Visit Diagnoses Not on filedocumented in this encounter Additional Health Concerns Assessment Noted Time PHQ-9 Depression Total Score: 4 02/03/20 23 9:35 AM EDT documented as of this encounter Care Teams Haul Cane Brakeman Relationship Specialty Start Date End Date Ronna Lopez FNP [address] [place] [address] PCP - General Family Medicine 09/02/24 Felicia Mcdermott, RN [address] [place] [address] Wrecking Supervisor 05/24/23 Reina Shen [address] [place] [address] [facility] 08/30/23 documented as of this encounter
--- OUTSIDE RECORDS SUMMARY | 2024-12-06 11:12 | XMS_ITS | Encounter Summary ---
Author Organization [email or web address] Address 75 [facility] 7t [place] [address] Care Team Providers Care Manager Hospital Name Role Phone Felicia Mcdermott RN Unavailable Reina Shen Unavailable Ronna Lopez Primary Care Provider [phone] Reason for Visit * Reason Onset Date Comments Care Coordination 11/07/2024 I spoke to jailene ashraf regarding Dexcom follow up. Patient reports he fractured her humerus and is in a rehab center. I advised she can call us when she gets back home to follow up with Felicia. Encounter Details Date Type Department Care Team (Late st Contact Info) Description 11/07/[address] [facility] 102 [place] [address] Ronna Lopez FNP 102 [place], [place] [phone] Care Coordination (I spoke to patient regarding Dexcom follow up. Patient reports he fractured her humerus and is in a rehab center. I advised she can call us when she gets back home to follow up with Felicia.) Social History Tobacco Use Types Packs/Day Years [...] Description 12/10/2024 12:40 PM EDT Office Visit [address] [address] Ronna Lopez FNP [address] [place] [address] 03/25/2025 10:00 AM EDT Clinical Support [address] [address] Felicia Mcdermott RN [address] [place] [address] documented as of this encounter Visit Diagnoses Not on filedocumented in this encounter Additional Health Concerns Assessment Noted Time PHQ-9 Depression Total Score: 4 02/03/20 23 9:35 AM EDT documented as of this encounter Care Teams Manager Hospital Relationship Specialty Start Date End Date Ronna Lopez FNP [address] [place] [address] PCP - General Family Medicine 09/02/24 Felicia Mcdermott RN [address] [place] [address] Chicken Boner 05/24/23 Reina Shen [address] [place] [address] [facility] 08/30/23 documented as of this encounter
--- OUTSIDE RECORDS SUMMARY | 2024-12-06 11:12 | XMS_ITS | Encounter Summary ---
Author Organization [employer] Address 75 [facility] 7t [place] [address] Care Team Providers Care Pharmacy Operations Coordinator Name Role Phone Ynes Cherry Primary Care Provider [phone] Felicia Mcdermott RN Unavailable Reina Shen Unavailable Ronna Lopez SHIP'S OFFICER Primary Care Provider [phone] Encounter Details Date Type Department Care Team (Late st Contact Info) Description 06/09/2023 Abstract [facility] 102 [place] [address] Ynes Cherry FNP [address] [place] [address] [phone] Social History Tobacco Use Types Packs/Day Years [...] Description 12/10/2024 12:40 PM EDT Office Visit [address] [address] Ronna Lopez FNP [address] [place], [place] [phone] 03/25/2025 10:00 AM EDT Clinical Support [address] [address] Felicia Mcdermott RN [address] [place] [address] documented as of this encounter Visit Diagnoses Not on filedocumented in this encounter Additional Health Concerns Assessment Noted Time PHQ-9 Depression Total Score: 4 02/03/20 23 9:35 AM EDT documented as of this encounter Care Teams Pharmacy Operations Coordinator Relationship Specialty Start Date End Date Ynes Cherry FNP PCP - General Family Medicine 02/02/23 09/01/24 Ronna Lopez FNP [address] [place] [address] PCP - General Family Medicine 09/02/24 Felicia Mcdermott, RN [address] [place] [address] Ordnance Officer 05/24/23 Reina Shen [address] [place] [address] [facility] 08/30/23 documented as of this encounter
== END 2024-12-06 12:09 | disposition home or self-care (01) ==
LOC: HO.HOS 10:23
PROVIDERS: Visit Provider Physician Assistant
DX: S42.301A Unspecified fracture of shaft of humerus, right arm, initial encounter for closed fracture (principal)
CPT/HCPCS: 29105; 99214

== ENCOUNTER → 2024-12-06 10:31 | Outpatient (BNV) | payer MEDICARE, MEDICAID, SELFPAY | PROVIDERS: Visit Provider Specialist | DX: S42.301A Unspecified fracture of shaft of humerus, right arm, initial encounter for closed fracture (principal) | CPT/HCPCS: 73060 ==

== ENCOUNTER 2024-12-10 07:31 | Day surgery (SDC) | payer MEDICARE, MEDICAID, SELFPAY ==
--- OUTSIDE RECORDS SUMMARY | 2024-12-06 12:57 | XMS_ITS | Encounter Summary ---
Author Organization [employer] Address 75 [facility] 7t [place] [address] Care Team Providers Care Perfume Maker Name Role Phone Ynes Cherry Primary Care Provider [phone] Felicia Mcdermott RN Unavailable Reina Shen Unavailable Ronna Lopez TENDERIZER TENDER Primary Care Provider [phone] Encounter Details Date Type Department Care Team (Late st Contact Info) Description 02/06/[address] [facility] 102 [place] [address] Ynes Cherry FNP [address] [place] [address] [phone] Social History Tobacco Use Types Packs/Day Years [...] Description 12/10/2024 12:40 PM EDT Office Visit [address] [address] Ronna Lopez FNP [address] [place] [address] 03/25/2025 10:00 AM EDT Clinical Support [address] [address] Felicia Mcdermott RN [address] [place] [address] documented as of this encounter Visit Diagnoses Not on filedocumented in this encounter Additional Health Concerns Assessment Noted Time PHQ-9 Depression Total Score: 4 02/03/20 23 9:35 AM EDT documented as of this encounter Care Teams Perfume Maker Relationship Specialty Start Date End Date Ynes Cherry FNP PCP - General Family Medicine 02/02/23 09/01/24 Ronan Lopez FNP [address] [place] [address] PCP - General Family Medicine 09/02/24 Felicia Mcdermott, RN [address] [place] [address] Resource Development Director 05/24/23 Reina Shen [address] [place] [address] [facility] 08/30/23 documented as of this encounter
--- OUTSIDE RECORDS SUMMARY | 2024-12-06 12:57 | XMS_ITS | Encounter Summary ---
Author Organization [employer] Address 75 [facility] 7t [place] [address] Care Team Providers Care Warehouse Delivery Driver Name Role Phone Felicia Mcdermott RN Unavailable Reina Shen Unavailable Ronna Lopez Primary Care Provider Reason for Visit * Reason Onset Date Comments Care Coordination 11/07/2024 I spoke to jailene ashraf regarding Dexcom follow up. Patient reports he fractured her humerus and is in a rehab center. I advised she can call us when she gets back home to follow up with Felicia. Encounter Details Date Type Department Care Team (Late st Contact Info) Description 11/07/2024 Telephone [facility] 102 [place] [address] Ronna Lopez FNP [address] [place], [place] [phone] Care Coordination (I spoke to patient regarding [...] Description 12/10/2024 12:40 PM EDT Office Visit [address] [address] Ronna Lopez FNP [address] [place] [address] 03/25/2025 10:00 AM EDT Clinical Support [address] [address] Felicia Mcdermott RN [address] [place] [address] documented as of this encounter Visit Diagnoses Not on filedocumented in this encounter Additional Health Concerns Assessment Noted Time PHQ-9 Depression Total Score: 4 02/03/20 23 9:35 AM EDT documented as of this encounter Care Teams Warehouse Delivery Driver Relationship Specialty Start Date End Date Ronna Lopez FNP [address] [place] [address] PCP - General Family Medicine 09/02/24 Felicia Mcdermott RN [address] [place] [address] Glass Blower 05/24/23 Reina Shen [address] [place] [address] [facility] 08/30/23 documented as of this encounter
--- OUTSIDE RECORDS SUMMARY | 2024-12-06 12:57 | XMS_ITS | Encounter Summary ---
Author Organization [facility] [employer] [facility] [facility] Address [address] [place] [address] 7 [place] [address] Care Team Providers Care Purchasing/Receiving Name Role Phone Deedee Chappell MD Primary Care Provider Terri Bennett [facility] Primary Care Provider Unavail able [place] Unassigned Primary Care Provider U Ynes Bower MOVING PICTURE PRODUCER Primary Care Provider Ynes Cherry [facility] Primary Care Provider [phone] Felicia Mcdermott RN Unavailable Reina Shen Unavailable Ronna Lopez [facility] Primary Care Provider Encounter Details Date Type Department Care Team (Late st Contact Info) Description 07/18/[address] [phone] Deedee Chappell MD [address] [place] [address] Social History Tobacco Use Types Packs/Day Years [...] Description 12/10/2024 12:40 PM EDT Office Visit [address] [phone] Ronna Lopez FNP [address] [place] [address] 03/25/2025 10:00 AM EDT Clinical Support [address] [phone] Felicia Mcdermott, RN [address] [place] [address] documented as of this encounter Visit Diagnoses Not on filedocumented in this encounter Care Teams Purchasing/Receiving Relationship Specialty Start Date End Date Deedee Chappell MD [address] [place] [address] PCP - General Family Medicine 07/18/22 08/08/22 Terri Bennett FNP [address] [place] [address] PCP - General Family Medicine 08/09/22 12/05/22 [place] Unassigned PCP - General Family Medicine 12/06/22 12/20/22 Ynes Cherry FNP PCP - General Family Medicine 12/21/22 12/21/22 Ynes Cherry FNP PCP - General Family Medicine 02/02/23 09/01/24 Ronna Lopez FNP [address] [place] [address] PCP - General Family Medicine 09/02/24 Felicia Mcdermott, RN [address] [place] [address] Professional Housing Consultant 05/24/23 Reina Shen [address] [place] [address] [facility] 08/30/23 documented as of this encounter
--- OUTSIDE RECORDS SUMMARY | 2024-12-06 12:57 | XMS_ITS | Encounter Summary ---
Author Organization [employer] Address 75 [facility] 7t [place] [address] Care Team Providers Care Lug Breaker And Wire Puller Name Role Phone Jo AnnYnes METALLOGRAPHER Primary Care Provider [phone] Felicia Mcdermott RN Unavailable Reina Shen Unavailable Ronna Lopez METALLOGRAPHER Primary Care Provider [phone] Encounter Details Date Type Department Care Team (Late st Contact Info) Description 01/10/2024 Orders Only [facility] Information Management [address] [place], [place] [phone] Provider, Not In System Social History Tobacco [...] the past 12 months, has t he [employer], gas, oil or water company threatened to [...] Description 12/10/2024 12:40 PM EDT Office Visit [address] [address] Ronna Lopez FNP [address] [place] [address] 03/25/2025 10:00 AM EDT Clinical Support [address] [address] Felicia Mcdermott RN [address] [place] [address] documented as of this encounter Procedures Procedure [...] documented as of this encounter Care Teams Lug Breaker And Wire Puller Relationship Specialty Start Date End Date Ynes Cherry FNP PCP - General Family Medicine 02/02/23 09/01/24 Ronna Lopez FNP [address] [place] [address] PCP - General Family Medicine 09/02/24 Felicia Mcdermott, RN [address] [place] [address] Primary Special Educator 05/24/23 Reina Shen [address] [place] [address] [facility] 08/30/23 documented as of this encounter
--- OUTSIDE RECORDS SUMMARY | 2024-12-06 12:57 | XMS_ITS | Encounter Summary ---
Author Organization [employer] Address [address] [place] [address] 7t h Floor [place] [phone] Care Team Providers Care Locksmith Apprentice Name Role Phone Felicia Mcdermott RN Unavailable Reina Shen Unavailable Ronna Lopez Primary Care Provider [phone] Encounter Details Date Type Department Care Team ([facility] st Contact Info) Description 11/22/2024 Telephone [facility] 102 [place] [address] Ronna Lopez FNP [address] [place] [address] Social History Tobacco Use Types Packs/Day Years [...] the past 12 months, has t he [employer], gas, oil or water [employer] threatened to shut off services in your [...] 12/10/2024 12:40 PM EDT Office Visit [address] [address] Ronna Lopez FNP [address] [place] [address] 03/25/2025 10:00 AM EDT Clinical Support [address] [phone] Felicia Mcdermott, RN [address] [place], [place] [phone] documented as of this encounter Visit Diagnoses Not on filedocumented in this encounter Additional Health Concerns Assessment Noted Time PHQ-9 Depression Total Score: 4 02/03/20 23 9:35 AM EDT documented as of this encounter Care Teams Locksmith Apprentice Relationship Specialty Start Date End Date Ronna Lopez FNP [address] [place] [address] PCP - General Family Medicine 09/02/24 Felicia Mcdermott, RN [address] [place] [address] Traffic Operations Manager 05/24/23 Reina Shen [address] [place] [address] [facility] 08/30/23 documented as of this encounter
--- OUTSIDE RECORDS SUMMARY | 2024-12-06 12:57 | XMS_ITS | Clinical Summary ---
Author Organization [employer] Address [address] [place] [address] 7t [place] [address] Care Team Providers Care Heel Scorer Name Role Phone Felicia Mcdermott RN Unavailable Reina Shen Unavailable Ronna Lopez Primary Care Provider Allergies Active Allergy Reactions Criticality Noted Date Comments Codeine Nausea And Vomiting Low 08/19/2013 Other reaction(s): Nausea, Vomiting, Diarrhea Oxycodone-Acetaminoph en Nausea And Vomiting Low 08/19/2013 Other reaction(s): Nausea, Vomiting, Diarrhea Medications FreeStyle lancetsIndication s:Type 2 diabetes mellitus with diabetic neuropathy, with long-term current use of insulin (CMS/[facility]ERLY [facility]) 1 each by Other route 4 times [...] with long-term current use of insulin (CMS/FORMERLY [facility]) ADMINISTER UP TO 78 UNITS UNDER THE [...] with other specified complication, unspecified whether terminal worker insulin use ([facility]/FORMERLY [facility]) TAKE 1 TABLET(25 MG) BY MOUTH IN THE MORNING 90 tablet 3 024 Active insulin aspart (NovoLOG FLEXPEN) 100 UNIT/ML penIndications:Ty pe 2 diabetes mellitus with diabetic neuropathy, with long-term current use of insulin ([facility]/FORMER[facility]) Sliding scale inject under the skin. Sliding scale with meals 70-110 none 111-150 2U 151-200 4 201-250 6 251-300 8 301-350 10 351-400 12 30 mL 11 024 Active insulin aspart, with niacinamide, (Fiasp) 100 UNIT/ML injectionIndicati ons:Type 2 diabetes mellitus with diabetic neuropathy, with long-term current use of insulin ([facility]) Inject subcutaneousl y- Sliding scale TID with meals 70-110: none 111-150: 2U 151-200: 4U 201-250: 6U 251-300: 8U 301-350: 10U 351-400: 12U 30 mL 3 024 Active BD Pen Needle Nia 2nd Gen 32G X 4 MM miscIndications:T ype 2 diabetes mellitus with diabetic neuropathy, with long-term current use of insulin ([facility]) USE TO INJECT 4 TIMES DAILY 400 each 3 024 Active lisinopril 5 MG tabletIndications :Primary hypertension Take 1 tablet (5 mg) by mouth Once per day. 90 tablet 3 025 Active rosuvastatin (Crestor) 10 MG tabletIndications :Type 2 diabetes mellitus with diabetic neuropathy, with long-term current use of insulin ([facility]),Hyperli pidemia, unspecified hyperlipidemia type TAKE 1 TABLET(10 [...] Department Care Team Description 11/26/2024 Orders Only [address] [phone] Ronna Lopez FNP Staph infection (Primary Dx) 11/22/2024 12:40 PM EDT Office Visit [address] [phone] Ronna Lopez FNP Seborrhea capitis (Primary Dx); Closed fracture of proximal end of right humerus with routine healing, unspecified fracture morphology, subsequent encounter; Localized swelling on right hand 11/22/[address] [phone] Ronna Lopez FNP 11/15/2024 1:40 PM EDT Office Visit [address] [phone] Ronna Lopez FNP Closed fracture of proximal end of right humerus with routine healing, unspecified fracture morphology, subsequent encounter (Primary Dx) 11/12/2024 Patient Outreach [address] [place] [address] Stephanie English LPN Transition Of Care (Tcm) (LEXY, discharged from snf 11/11/2024) 11/08/2024 Population Health Risk Score [facility] (C3) Department [address] [place] [phone] Provider, Population Health Generic 11/07/[address] [phone] Ronna Lopez FNP Care Coordination (I spoke to patient regarding Dexcom follow up. Patient reports he fractured her humerus and is in a rehab center. I advised she can call us when she gets back home to follow up with Felicia.) 10/02/[address] [phone] Ronna Lopez FNP 10/02/[address] [phone] Ynes Cherry FNP Type 2 diabetes mellitus with diabetic neuropathy, with long-term current use of insulin ([facility]); Hyperlipidemia, unspecified hyperlipidemia type 09/30/[address] [place] [phone] Ronna Lopez FNP Primary hypertension 09/29/[address] [phone] Ynes Cherry FNP Primary hypertension 09/17/2024 10:00 AM EST Clinical Support [address] [phone] Felicia Mcdermott, RN Type 2 diabetes mellitus with diabetic neuropathy, with long-term current use of insulin ([facility]) from Last 3 Months Immunizations Name Administration [...] Description 12/10/2024 12:40 PM EDT Office Visit [address] [phone] Ronna Lopez FNP [address] [place] [address] 03/25/2025 10:00 AM EDT Clinical Support [address] [phone] Felicia Mcdermott, RN [address] [place] [address] Health Maintenance Due Date Last Done Comments [...] with long-term current use of insulin ([facility]) COMPREHENSIVE METABOLIC PANEL Routine 09/17/2024 10:21 AM EST Type 2 diabetes mellitus with diabetic neuropathy, with long-term current use of insulin ([facility]) VITAMIN B12 Routine 09/17/2024 10:21 AM EST Type 2 diabetes mellitus with diabetic neuropathy, with long-term current use of insulin ([facility]) CBC WITH AUTO DIFFERENTIAL Routine 09/17/2024 10:21 AM EST Type 2 diabetes mellitus with diabetic neuropathy, with long-term current use of insulin ([facility]) HEMOGLOBIN A1C WITH MPG Routine 09/17/2024 10:21 AM EST Type 2 diabetes mellitus with diabetic neuropathy, with long-term current use of insulin ([facility]) ALBUMIN, RANDOM URINE W/CREATININE Routine 05/22/2024 11:41 [...] Aerobic Bacteria (11/22/2024 3:31 PM EDT) Pathologist [facility] Culture, Aerobic Bacteria SEE NOTE(A) [facility] Comment: ??CULTURE, AEROBIC BACTERIA ?Micro Number: ?[id number] ??Test Status: ? Final ??Specimen Source: ?? [...] AM EDT FASTING:UNKNOWN FASTING: UNKNOWN Ronna Lopez [facility] MICROBIOLOGY - GENERAL ORDER PHUONG Final Result [facility] [address] [facility], [place] [address] [facility] [place] [facility] [address] [place] [address] * (ABNORMAL) Lipid Panel with Reflex to Direct LDL (09/17/2024 10:21 AM EST) Cholesterol, Total 119 <200 mg/dL [facility] [place] [facility] HDL Cholesterol 38(L) > OR = 50 mg/dL [facility] [place] [facility] Triglycerides 263(H) <150 mg/dL [facility] [place] [facility] Comment: If a non-fasting specimen was collected, consider repeat triglyceride testing on a fasting specimen if clinically indicated. Chema et al. J. of Clin. Lipidol. 2015;9:129-169. LDL Cholesterol 50 mg/dL [facility] [place] [facility] Comment: Reference range: <100 Desirable range <100 mg/dL for primary prevention; ?? <70 mg/dL for patients with CHD or diabetic patients with > or = 2 CHD risk factors. LDL-C is now calculated using the Elizabet calculation, which is a validated novel method providing better accuracy than the Friedewald equation in the estimation of LDL-C. Shahram SS et al. ARIANE. 2013;310(19): 2485-2895 (http://education.ProteoGenix/faq/UAM285) Chol/HDLC Ratio 3.1 <5.0 (calc) [facility] [place] [facility] Non-HDL Cholesterol 81 <130 mg/dL [facility] [place] [facility] Comment: For patients with diabetes plus 1 major ASCVD risk factor, treating to a non-HDL-C goal of <100 mg/dL (LDL-C of <70 mg/dL) is considered a therapeutic option. Blood 09/17/2024 10:2 1 AM EST 09/17/2024 10:22 AM EST Narrative [facility] - 09/17/2024 9:57 PM EST FASTING:NO FASTING: NO Ronna Lopez [facility] BLOOD ORDERABLES Final Resul t [facility] [address], [place] [address] [facility] [place] [facility] [address] [place] [address] * (ABNORMAL) Hemoglobin A1c with Calculated Mean Plasma Glucose (MPG) (09/17/2024 10:21 AM EST) Hemoglobin A1c 5.8(H) <5.7 % of total Hgb [facility] [place] [facility] Comment: For someone without known diabetes, a [...] children. Mean Plasma Glucose 129 mg/dL (calc) [facility] [place] [facility] 09/17/2024 10:2 1 AM EST 09/17/2024 10:22 AM EST Narrative [facility] - 09/17/2024 9:57 PM EST FASTING:NO FASTING: NO Ronna Lopez [facility] BLOOD ORDERABLES Final Resul t [address], [place] [address] [facility] [place] [facility] [address] [place] [address] * (ABNORMAL) CBC auto differential (09/17/2024 10:21 AM EST) White Blood Cell Count 9.5 3.8 - 10.8 Thousand/ uL [facility] [place] [facility] Red Blood Cell Count 4.77 3.80 - 5.10 Million/u L [facility] [place] [facility] Hemoglobin 14.1 11.7 - 15.5 g/dL [facility] [place] [facility] Hematocrit 43.0 35.0 - 45.0 % [facility] [place] [facility] MCV 90.1 80.0 - 100.0 fL [facility] [place] [facility] MCH 29.6 27.0 - 33.0 pg [facility] [place] [facility] MCHC 32.8 32.0 - 36.0 g/dL [facility] [place] [facility] Comment: For adults, a slight decrease in the calculated MCHC value (in the range of 30 to 32 g/dL) is most likely not clinically significant; however, it should be interpreted with caution in correlation with other red cell parameters and the patient's clinical condition. RDW 13.1 11.0 - 15.0 % [facility] Platelet Count 372 140 - 400 Thousand/ uL [facility] [place] [facility] MPV 10.6 7.5 - 12.5 fL [facility] [place] [facility] Absolute Neutrophils 5,928 1,500 - 7,800 cells/uL [facility] [place] [facility] Absolute Lymphocytes 2,394 850 - 3,900 cells/uL [facility] [place] [facility] Absolute Monocytes 447 200 - 950 cells/uL [facility] [place] [facility] Absolute Eosinophils 627(H) 15 - 500 cells/uL [facility] [place] [facility] Absolute Basophils 105 0 - 200 cells/uL [facility] [place] [facility] Neutrophils 62.4 % [facility] [place] [facility] Lymphocytes 25.2 % [facility] [place] [facility] Monocytes 4.7 % [facility] [place] [facility] Eosinophils 6.6 % [facility] [place] [facility] Basophils 1.1 % [facility] [place] [facility] Blood Venous blood specimen / Unknown 09/17/2024 10:21 AM EST 09/17/2024 10:22 AM EST Narrative [facility] - 09/17/2024 9:57 PM EST FASTING:NO FASTING: NO Ronna Lopez [facility] BLOOD ORDERABLES Final Resul t [facility] [address], [place] [address] [facility] [place] [facility] [address] [place] [address] * Vitamin B12 (09/17/2024 10:21 AM EST) Vitamin B12 322 200 - 1,100 pg/mL [facility] [place] [facility] Comment: Please Note: Although the reference range [...] EST FASTING:NO FASTING: NO us Ronna Lopez [facility] BLOOD ORDERABLES Final Resul t [facility] [address], [place] [address] [facility] [place] [facility] [address] [place] [address] * (ABNORMAL) Comprehensive Metabolic Panel (09/17/2024 10:21 AM EST) Glucose 174(H) 65 - 139 mg/dL [facility] [place] [facility] Comment: ? Non-fasting reference interval Urea Nitrogen (BUN) 12 7 - 25 mg/dL [facility] [place] [facility] Creatinine, Serum 0.91 0.50 - 1.05 mg/dL [facility] [place] [facility] eGFR 70 > OR = 60 mL/min/1. 73m2 [facility] [place] [facility] BUN/Creatinine Ratio SEE NOTE: 22 (calc) [facility] [place] [facility] Comment: ?? Not Reported: BUN and Creatinine are within ?? reference range. ? Sodium 140 135 - 146 mmol/L [facility] [place] [facility] Potassium 4.3 3.5 - 5.3 mmol/L [facility] [place] [facility] Chloride 104 98 - 110 mmol/L [facility] [place] [facility] Carbon Dioxide 23 20 - 32 mmol/L [facility] [place] [facility] Calcium 9.5 8.6 - 10.4 mg/dL [facility] [place] [facility] Protein, Total 6.9 6.1 - 8.1 g/dL [facility] [place] [facility] Albumin 4.3 3.6 - 5.1 g/dL [facility] [place] [facility] Globulin 2.6 1.9 - 3.7 g/dL (calc) [facility] [place] [facility] Albumin/Globuli n Ratio 1.7 1.0 - 2.5 (calc) [facility] [place] [facility] Bilirubin, Total 0.3 0.2 - 1.2 mg/dL [facility] [place] [facility] Alkaline Phosphatase 46 37 - 153 U/L [facility] [place] [facility] AST 17 10 - 35 U/L [facility] [place] [facility] ALT 18 6 - 29 U/L [facility] [place] [facility] Blood Venous blood specimen / Unknown 09/17/2024 10:21 AM EST 09/17/2024 10:22 AM EST Narrative [facility] - 09/17/2024 9:57 PM EST FASTING:NO FASTING: NO us Ronna Lopez [facility] BLOOD ORDERABLES Final Resul t Performing Organization Address [facility] de Phone Number [address], [place] [address] [facility] [place] [facility] [address] [place] [address] * Albumin, Random Urine W/Creatinine (05/22/2024 11:41 AM EDT) Creatinine, Random Urine 91 20 - 275 mg/dL [facility] [place] [facility] Albumin, Urine 0.9 See Note: mg/dL [facility] [place] [facility] Comment: Reference Range: Reference Range Not established Albumin/Creatinin e Ratio, Random Urine 10 <30 mg/g creat [facility] [place] [facility] Comment: The ADA defines abnormalities in albumin [...] EDT FASTING:NO FASTING: NO us Ynes Cherry [facility] URINE ORDERABLES Final Res ult Performing Organization Address City/[facility]/ZIP Co de Phone Number [facility] [address] [facility], [place] [address] [facility] [address] [place] [address] * BI Mammogram Screening Tomosynthesis Bilateral (01/05/2024 [...] (Benign) Lay letter mailed to patient WSN: [id number] Ordering Physician: Ynes Cherry Dictated By: ?Juwan Romano MD Dictated Date/Time: ?01/05/24 4:58 pm Reviewed By: ?Juwan Romano MD Signed By: ? Juwan Romano MD Signed Date/Time: ? 01/05/24 4:58 pm Transcribed By: ? [employer] Identifier Date/Time: ? 01/05/24 4:54 pm Birads: Procedure [...] (Benign) Lay letter mailed to patient WSN: [id number] Ordering Physician: Ynes Cherry Dictated By: Juwan Romano MD Dictated Date/Time: 01/05/24 4:58 pm Reviewed By: Juwan Romano MD Signed By: Juwan Romano MD Signed Date/Time: 01/05/24 4:58 pm Transcribed By: [employer] Identifier Date/Time: 01/05/24 4:54 pm Birads: Ynes Cherry AIR GRINDER IMG BI PROCEDURES Final Result * Hm Diabetes Eye Exam (06/13/2023) Eye Exam Normal Normal Comment:REPEAT EYE EXAMIN 1 MONTH Historical Provider HEALTH MAINTENANCE Final Result * Occult Blood, Fecal, Immunoassay (04/04/2023 9:25 AM EDT) Fecal Occult Blood, Immunochemical (FIT) NEGATIVE (NEG) [facility] Comment: Testing performed or reported by [facility], a Service of [facility], [address] [place] [address] King Hamm MD, Computational Mathematician [facility]# [id number] 04/04/2023 9:25 AM EDT 04/10/2023 9:31 AM EDT Ynes Cherry [facility] BODY FLUIDS AND STOOLS ORD ERABLES Final Result [facility] [address] [place] [address] * Colonoscopy (04/29/2022) Colonoscopy FIT NEGATIVE Historical Provider HEALTH MAINTENANCE Final Result * Hepatitis C Antibody (02/11/2019) Hepatitis C Antibody Nonreactive Blood Historical Provider HEALTH MAINTENANCE Final Result from Last 3 Months or Most Recently Relevant to Health Maintenance Insurance [facility] STANDARD [place]IC[place] [address] [place] [phone] * Guarantor: Matilde Ferrer Account Type Relation to Patient Date of Phone Billing Address Dental Self Care Teams Heel Scorer Relationship Specialty Start Date End Date Ronna Lopez FNP [address] [place] [address] PCP - General Family Medicine 09/02/24 Felicia Mcdermott RN [address] [place] [address] Sack Maker 05/24/23 Reina Shen [address] [place] [address] [facility] 08/30/23
--- OUTSIDE RECORDS SUMMARY | 2024-12-06 12:57 | XMS_ITS | Encounter Summary ---
Author Organization [employer] Address [address] [facility] 7t [place] [address] Care Team Providers Care Business Intelligence Manager Name Role Phone Ynes Cherry Primary Care Provider [phone] Felicia Mcdermott RN Unavailable Reina Shen Unavailable Ronna Lopez SPEECH AND HEARING CLINIC DIRECTOR Primary Care Provider [phone] Reason for Visit * Reason Comments Med Refill Encounter Details Date Type Department Care Team (Late st Contact Info) Description 06/11/2024 Refill [facility] [address] [place] [address] Ynes Cherry FNP [address] [place] [address] Social History Tobacco Use Types Packs/Day [...] Center 09/17/2024 10:00 AM Felicia Mcdermott RN [facility] Comments: documented in this encounter Plan of Treatment Upcoming Encounters Date Type Department Care Team (Late st Contact Info) Description 12/10/2024 12:40 PM EDT Office Visit [address] [phone] Ronna Lopez FNP [address] [place] [address] 03/25/2025 10:00 AM EDT Clinical Support [address] [phone] Felicia Mcdermott RN [address] [place] [address] documented as of this encounter Visit Diagnoses Not on filedocumented in this encounter Additional Health Concerns Assessment Noted Time PHQ-9 Depression Total Score: 4 02/03/20 23 9:35 AM EDT documented as of this encounter Care Teams Business Intelligence Manager Relationship Specialty Start Date End Date Ynes Cherry FNP PCP - General Family Medicine 02/02/23 09/01/24 Ronna Lopez FNP [address] [place] [address] PCP - General Family Medicine 09/02/24 Felicia Mcdermott, BETSY [address] [place] [address] Step Finisher 05/24/23 Reina Shen [address] [place] [address] [facility] 08/30/23 documented as of this encounter
--- OUTSIDE RECORDS SUMMARY | 2024-12-06 12:58 | XMS_ITS | Encounter Summary ---
Author Organization [employer] Address [address] [facility] 7t [place] [address] Care Team Providers Care Relief Salesperson Name Role Phone Ynes Cherry Primary Care Provider [phone] Felicia Mcdermott RN Unavailable Reina Shen Unavailable Ronna Lopez FOUNDRY MOLDER Primary Care Provider [phone] Encounter Details Date Type Department Care Team (Late st Contact Info) Description 06/09/2023 Abstract [facility] [address] [place] [address] Ynes Cherry FNP [address] [place] [address] [phone] Social History Tobacco Use Types Packs/Day Years [...] Description 12/10/2024 12:40 PM EDT Office Visit [address] [phone] Ronna Lopez FNP [address] [place], [place] [phone] 03/25/2025 10:00 AM EDT Clinical Support [address] [phone] Felicia Mcdermott RN [address] [place] [address] documented as of this encounter Visit Diagnoses Not on filedocumented in this encounter Additional Health Concerns Assessment Noted Time PHQ-9 Depression Total Score: 4 02/03/20 23 9:35 AM EDT documented as of this encounter Care Teams Relief Salesperson Relationship Specialty Start Date End Date Ynes Cherry FNP PCP - General Family Medicine 02/02/23 09/01/24 Ronna Lopez FNP [address] [place] [address] PCP - General Family Medicine 09/02/24 Felicia Mcdermott, RN [address] [place] [address] Portfolio Manager 05/24/23 Reina Shen [address] [place] [address] [facility] 08/30/23 documented as of this encounter
--- OUTSIDE RECORDS SUMMARY | 2024-12-06 12:58 | XMS_ITS | Encounter Summary ---
Author Organization [employer] Address [address] [facility] 7t [place] [address] Care Team Providers Care Skidway Worker Name Role Phone Ynes Cherry Primary Care Provider [phone] Felicia Mcdermott RN Unavailable Reina Shen Unavailable Ronna Lopez JUKEBOX OPERATOR Primary Care Provider [phone] Encounter Details Date Type Department Care Team (Late st Contact Info) Description 06/09/[address] [facility] [address] [place] [address] Ynes Cherry FNP [address] [place] [address] [phone] Social History Tobacco Use Types Packs/Day Years [...] Description 12/10/2024 12:40 PM EDT Office Visit [address] [phone] Ronna Lopez FNP [address] [place], [place] [phone] 03/25/2025 10:00 AM EDT Clinical Support [address] [phone] Felicia Mcdermott RN [address] [place] [address] documented as of this encounter Visit Diagnoses Not on filedocumented in this encounter Additional Health Concerns Assessment Noted Time PHQ-9 Depression Total Score: 4 02/03/20 23 9:35 AM EDT documented as of this encounter Care Teams Skidway Worker Relationship Specialty Start Date End Date Ynes Cherry FNP PCP - General Family Medicine 02/02/23 09/01/24 Ronna Lopez FNP [address] [place] [address] PCP - General Family Medicine 09/02/24 Felicia Mcdermott, RN [address] [place] [address] Supervisor [employer] Finishing 05/24/23 Reina Shen [address] [place] [address] [facility] 08/30/23 documented as of this encounter
[2024-12-10] VITALS (11 sets, daily range): BP systolic 93–134; BP diastolic 51–87; PULSE 79–115; RESP 16–20; TEMP 36.1–36.9; O2SAT 93–97; BMI 25.7; BMI 25.9
[2024-12-10 08:37] LABS: Glucose, Whole Blood 100 mg/dL (60-115)
[2024-12-10] MEDS: Lactated Ringers 1,000 ML 50 ML IVCONT (08:41)
[2024-12-10] MEDS: Scopolamine 1.5 MG PATCH.TD.3 EAR-BEHIND (08:41)
--- NOTE | 2024-12-10 10:54 | HO.ANESPROP2 ---
HPI - Anesthesia Eval Consult details Narrative: right humerus fracture PMFSH Active Problems Active Problems: All Active Problems Fracture of humeral shaft, right, closed (Acute) Past Medical History Medical History HTN (hypertension) Anxiety Diabetes High cholesterol GERD (gastroesophageal reflux disease) Family History Family history of problems with anesthesia: No Surgical History Surgical History H/O cervical spine surgery Hx of hysterectomy History of Problems with Anesthesia: No Social History Social History Alcohol intake: never Patient Tobacco Use Status: Never used Tobacco Have you been hit, kicked, punched, or otherwise hurt by someone within the past year? If so, by whom?: No Are you DNR?: No Advance Directives: No Advance Directives Information Provided: Yes Current occupational status: retired and disabled Current occupation: right hand dominant Meds Allergies Allergy/AdvReac Type Severity Reaction Status Date / Time No Known Allergies Allergy Verified 12/06/24 10:34 Active Medications: Current Medications Lactated Ringer's (Lr) 1,000 mls @ 50 mls/hr IVCONT .Q20H [place] Last Admin: 12/10/24 08:41 Dose: 50 mls/hr Naloxone HCl (Naloxone Hcl 0.4 Mg/Ml Vial) 0.04 mg IVPUSH Q5M PRN PRN Reason: Excessive sedation or RR < 8 Home Medications ?Medication ?Instructions ?Recorded ?Confirmed ?Last Taken ?Type acetaminophen 500 mg capsule 500 mg PO Q6H PRN Pain (Scale 10/28/24 12/06/24 12/07/24 History Score 4-6) aripiprazole 5 mg tablet 5 mg PO DAILY 10/28/24 12/06/24 12/08/24 History bisacodyl 10 mg rectal suppository 10 mg [place] DAILY PRN 10/28/24 12/06/24 Unknown History dextrose 40 % oral gel (Glutose-45) 10 g PO Q15M PRN 10/28/24 12/06/24 Unknown History glucagon 1 mg solution for 1 mg subcut Q20M PRN 10/28/24 12/06/24 Unknown History injection (GlucaGen HypoKit) hydromorphone 4 mg tablet 4 mg PO Q6H PRN Pain (Scale Score 10/28/24 12/06/24 12/08/24 History (Dilaudid) 7-10) hydroxyzine HCl 25 mg tablet 25 mg PO BID PRN Pain (Scale Score 10/28/24 12/06/24 11/27/24 History 1-3) ibuprofen 600 mg tablet 600 mg PO Q8H PRN Pain (Scale 10/28/24 12/06/24 12/07/24 History Score 4-6) insulin degludec 100 unit/mL (3 20 unit subcut BID 10/28/24 12/06/24 12/09/24 History mL) subcutaneous pen (Tresiba FlexTouch U-100 insulin) lisinopril 5 mg tablet 5 mg PO DAILY 10/28/24 12/06/24 12/08/24 History lurasidone 60 mg tablet 60 mg PO DAILY 10/28/24 12/06/24 12/08/24 History metformin 1,000 mg tablet 1,000 mg PO DAILY 10/28/24 12/06/24 12/08/24 History ondansetron HCl 4 mg tablet 4 mg PO Q6H 10/28/24 12/06/24 Unknown History rosuvastatin 10 mg tablet 10 mg PO DAILY 10/28/24 12/06/24 12/08/24 History sodium phosphates 19 gram-7 118 ml [place] DAILY PRN 10/28/24 12/06/24 Unknown History gram/118 mL enema (Fleet Enema) semaglutide 1 mg/dose (4 mg/3 mL) mg subcut 12/10/24 12/10/24 11/28/24 History subcutaneous pen injector (Ozempic) Exam Height,Weight and Vital Signs: Height 5 ft 8 in Weight 77.2 kg Last Vital Signs Temp 98.4 F 12/10/24 07:57 Pulse 106 H 12/10/24 07:57 Resp 20 12/10/24 07:57 BP 134/87 12/10/24 07:57 Pulse Ox 96 12/10/24 07:57 O2 Del Method Room Air 12/10/24 07:57 Pertinent Lab Results Pertinent Lab Results: Laboratory Tests 12/10/24 08:24 POC Glucose 100 Airway Mallampati Class: II TM Dist: >3cm Neck ROM: Full Denture: Upper and Lower Heart: rrr Lungs: cta Assessment and Plan Assessment Anesthesia Assessment: Anesthesia Plan Discussed and Chart Reviewed Final Anesthetic Review Family History of Problems with Anesthesia: No History of Problems with Anesthesia: No NPO: Yes ASA Class: III Final Preanesthetic Review: No Changes in Pt Med Stat, Meds/Allgs Chart Reviewed, Consent Obtained/Reviewed and Anes Risks/Benef Reviewed Patient Risk: Intermediate Procedure Risk: Intermediate Anesthetic Plan Anesthetic Plan: GA and Regional Block Disposition: Standard PACU
--- NOTE | 2024-12-10 10:54 | MHC.SHP ---
Pre-Procedural Eval Section A - 24 Hr Update-Section A only Date of Service: 12/10/24 The patient is an INPATIENT: No Changes since office visit: No Cold of Flu in the past 2 weeks, No New Medical Problems, No Changes in Medication and No Patient answered all questions The patient has been examined within 24 hours of the surgical procedure. The History & Physical has been completed within 30 days and I have reviewed it.: Yes Section B - Complete if H&P > 30 days Chief Complaint: Unspecified fracture of shaft of humerus, right ar Allergies: Allergies Allergy/AdvReac Type Severity Reaction Status Date / Time No Known Allergies Allergy Verified 12/06/24 10:34 Plan I have reviewed the history and physical and performed a pertinent physical examination on my patient. No changes have occurred unless specified. Time Spent With Patient Time: Total time managing care of this patient today ____ minutes.
[2024-12-10] MEDS: ceFAZolin Sodium/Dextrose,Iso 2 GM/50 ML PIGGYBACK IV ×2 (11:25→16:38)
[2024-12-10] MEDS: Acetaminophen 1,000 MG/100 ML PIGGYBACK 400 MG IV (11:33)
--- NOTE | 2024-12-10 12:51 | PM.DS ---
DS: Providers Provider Date of Service: 12/11/24 Date of discharge: 12/11/24 Primary care physician: Unknown Physician DS: Summary Hospital Course Hospital Course: The patient underwent a successful right humeral IM nail, they were transferred to PACU and then to the floor to recover. During their stay, their vitals were stable, afebrile at 98.2. Labs were unremarkable, H/H 10.5/31.5. POD 1 they received occupational Therapy services. Prior to discharge, their dressing was clean dry and intact, and the plan was to be discharged home with VNA services. Time Attestation Discharge Coordination Time (in mins): 30 Quality: Safe Use of Opioids Does Pt have an Active Cancer Diagnosis on the Problem List?: No Quality: Stroke Does the patient have a stroke diagnosis?: No Physical Exam Vital Signs: Vital Signs: Last Vital Signs Temp 98.4 F 12/10/24 07:57 Pulse 106 H 12/10/24 07:57 Resp 20 12/10/24 07:57 BP 134/87 12/10/24 07:57 Pulse Ox 96 12/10/24 07:57 O2 Del Method Room Air 12/10/24 07:57 BMI result Body Mass Index 25.9 Extrem: Other: Right upper extremity bandages are clean dry and intact. Patient is able to perform wrist flexion and extension as well as thumbs up. Sensation is intact. Capillary refill is brisk. DS: Data Data Completed and Pending Labs on day of discharge: Laboratory Results - last 24 hr 12/10/24 08:24 POC Glucose 100 Discharge Plan Discharge Patient Disposition: Home, Self-Care Referrals: Ruben Solomon PA-C [Physician Hotshot Superintendent] - 12/25/24 9:30 am Discharge Medications: New celecoxib 200 mg Capsule 200 mg PO BID 30 Days Qty: 60 0RF acetaminophen 325 mg Tablet 650 mg PO Q6H PRN (Reason: Pain, Mild 1-3,Fever,Headache) 30 Days Qty: 240 0RF docusate sodium 100 mg Capsule 100 mg PO BID 30 Days Qty: 60 0RF oxycodone 5 mg Tablet 5 mg PO Q4H PRN (Reason: Pain, Moderate(Pain Scale 4-6)) 7 Days Qty: 42 0RF Rx Instructions: Partial Fill upon patient request. Continued venlafaxine 75 mg capsule,extended release 24hr 75 mg PO DAILY metformin 500 mg tablet extended release 24 hr 1,000 mg PO BID cholecalciferol (vitamin D3) [Vitamin D3] 25 mcg (1,000 unit) capsule 25 mcg PO DAILY Jardiance 25 mg tablet 25 mg PO DAILY Ozempic 1 mg/dose (4 mg/3 mL) pen injector 1 mg subcut TH insulin degludec [Tresiba FlexTouch U-100] 100 unit/mL (3 mL) insulin pen 40 unit subcut DAILY aripiprazole 5 mg tablet 5 mg PO DAILY hydromorphone [Dilaudid] 4 mg tablet 4 mg PO Q6H PRN (Reason: Pain (Scale Score 7-10)) GlucaGen HypoKit 1 mg recon soln 1 mg subcut Q20M PRN (Reason: low sugar) Rx Instructions: until target blood sugar attained hydroxyzine HCl 25 mg tablet 25 mg PO BID PRN (Reason: Pain (Scale Score 1-3)) lisinopril 5 mg tablet 5 mg PO DAILY lurasidone 60 mg tablet 60 mg PO DAILY Rx Instructions: must administer with food (at least 350 calories) rosuvastatin 10 mg tablet 10 mg PO DAILY ondansetron HCl 4 mg tablet 4 mg PO Q6H PRN (Reason: Nausea And Vomiting) Discontinued acetaminophen 500 mg capsule 500 mg PO Q6H PRN (Reason: Pain (Scale Score 4-6)) ibuprofen 600 mg tablet 600 mg PO Q8H PRN (Reason: Pain (Scale Score 4-6)) Discharge Orders: Discharge Order (Routine); Ordered 12/11/24 Ordered By: Becka Puri Diet: Advance to usual diet Activity on Discharge: Use Splints or Immobilizers Activity Restrictions/Additional Instructions: Keep splint clean, dry, and intact Sling Nonweightbearing right upper extremity Perform fist/finger and wrist exercises throughout the day Pendulum exercises Do not bathe or shower--keep splint and bandages clean, dry and intact Call [facility]ics with any questions or concerns. Follow up with orthopedics in 7-10 days post op Print Language: Czech
--- NOTE | 2024-12-10 12:52 | W.MHC.F2F ---
Service Date Service Date: 12/10/24 Encounter Date of encounter: 12/11/24 Reasons for Services Signs and symptoms assessed: Status post right humeral IM nail Pt. is considered homebound due to recent surgery. Unable to drive, poor balance, poor gait mechanics. Reason for occupational therapy: home safety and mobility, therapeutic exercises, restore joint function, gait/transfer training and ADL training Homebound: Leaving the home is medically contraindicated at this time without the asist of a device and/or another person due th the listed conditions above and below. Reason homebound: pain with ambulation, poor balance / fall risk and unable to drive Certification: Based on the above findings, I certify that this patient is confined to the home and needs intermittent halfway care, physical therapy and/or speech therapy, or continues to need occupational therapy. The patient is under my care, and I have initiated the establishment of the plan of care. The patient will be followed by a physician who will periodically review the plan of care. Time Spent With Patient Time: Total time managing care of this patient today ____ minutes.
--- NOTE | 2024-12-10 14:56 | PM.OP ---
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
[2024-12-10] MEDS: 0.9 % Sodium Chloride Flush 3 ML SYRINGE IVFLUSH (15:34)
[2024-12-10] MEDS: Lactated Ringers 1,000 ML 100 ML IVCONT (16:06)
--- NOTE | 2024-12-10 16:32 | HO.PM.IMCN ---
History of Present Illness Data of Consult Service Date: 12/10/24 Requesting physician: Cortes Wolf Primary Care Provider: Unknown Physician HPI Reason for consult: Medical Management 63-year-old female with a fractured right humerus September this year presents for elective repair secondary to non union. Surgery without incident. Carries a history of diabetes/hypertension/hyperlipidemia. Review of Systems Review of Systems: Denies chest pain Denies shortness of breath Denies nausea vomiting diarrhea Denies fever chills PMFSH Medical History (Updated 12/10/24 @ 16:37 by Neal Diane DO) HTN (hypertension) Anxiety Diabetes High cholesterol GERD (gastroesophageal reflux disease) Surgical History H/O cervical spine surgery Hx of hysterectomy Social History Household Members: None Housing: Apartment Alcohol intake: never Patient Tobacco Use Status: Never used Tobacco Use of substances other than those prescribed or required for medical reasons: No Have you been hit, kicked, punched, or otherwise hurt by someone within the past year? If so, by whom?: No Do you feel safe in your current relationship?: Yes Is there a partner from a previous relationship who is making you feel unsafe now?: No Are you made to feel afraid or neglected: No Are you DNR?: No Advance Directives: No Advance Directives Information Provided: Yes Do you have a plan to hurt others: No Plan Recently lost weight without trying: Unsure Nutrition Risks: No Nutritional Risk Patient : No : No Poor oral hygiene: No Current occupational status: retired and disabled Current occupation: right hand dominant Meds Allergies Allergy/AdvReac Type Severity Reaction Status Date / Time No Known Allergies Allergy Verified 12/06/24 10:34 Active Medications: Current Medications Acetaminophen (Acetaminophen 325 Mg Tablet) 650 mg PO Q6H PRN PRN Reason: Pain, Mild 1-3,fever,headache Celecoxib (Celecoxib 200 Mg Capsule) 200 mg PO BID [place] Docusate Sodium (Docusate Sodium 100 Mg Capsule) 100 mg PO BID [place] Hydromorphone HCl (Hydromorphone Hcl 0.5 Mg/0.5 Ml Syringe) 0.25 mg IVPUSH Q4H PRN; Protocol PRN Reason: Pain, Severe (Pain Scale 7-10) Lactated Ringer's (Lr) 1,000 mls @ 100 mls/hr IVCONT .Q10H [facility] Last Admin: 12/10/24 16:06 Dose: 100 mls/hr Cefazolin Sodium/Dextrose (Ancef) 2 gm in 50 mls @ 100 mls/hr IV ONCE@1700 [facility] Stop: 12/10/24 17:29 Ondansetron HCl (Ondansetron Hcl 4 Mg/2 Ml Vial) 4 mg IVPUSH Q8H PRN PRN Reason: Nausea and Vomiting Oxycodone HCl (Oxycodone Hcl Immed Release 5 Mg Tablet) 5 mg PO Q4H PRN PRN Reason: Pain, Moderate(Pain Scale 4-6) Sodium Chloride (0.9 % Sodium Chloride Flush 3 Ml Syringe) 3 ml IVFLUSH QSHIFT [facility] Last Admin: 12/10/24 15:34 Dose: 3 ml Home Medications ?Medication ?Instructions ?Recorded ?Confirmed ?Last Taken ?Type acetaminophen 500 mg capsule 500 mg PO Q6H PRN Pain (Scale 10/28/24 12/06/24 12/07/24 History Score 4-6) aripiprazole 5 mg tablet 5 mg PO DAILY 10/28/24 12/06/24 12/08/24 History bisacodyl 10 mg rectal suppository 10 mg [place] DAILY PRN 10/28/24 12/06/24 Unknown History dextrose 40 % oral gel (Glutose-45) 10 g PO Q15M PRN 10/28/24 12/06/24 Unknown History glucagon 1 mg solution for 1 mg subcut Q20M PRN 10/28/24 12/06/24 Unknown History injection (GlucaGen HypoKit) hydromorphone 4 mg tablet 4 mg PO Q6H PRN Pain (Scale Score 10/28/24 12/06/24 12/08/24 History (Dilaudid) 7-10) hydroxyzine HCl 25 mg tablet 25 mg PO BID PRN Pain (Scale Score 10/28/24 12/06/24 11/27/24 History 1-3) ibuprofen 600 mg tablet 600 mg PO Q8H PRN Pain (Scale 10/28/24 12/06/24 12/07/24 History Score 4-6) lisinopril 5 mg tablet 5 mg PO DAILY 10/28/24 12/06/24 12/08/24 History lurasidone 60 mg tablet 60 mg PO DAILY 10/28/24 12/06/24 12/08/24 History ondansetron HCl 4 mg tablet 4 mg PO Q6H 10/28/24 12/06/24 Unknown History rosuvastatin 10 mg tablet 10 mg PO DAILY 10/28/24 12/06/24 12/08/24 History sodium phosphates 19 gram-7 118 ml [place] DAILY PRN 10/28/24 12/06/24 Unknown History gram/118 mL enema (Fleet Enema) cholecalciferol (vitamin D3) 25 25 mcg PO DAILY 12/10/24 Unknown History mcg (1,000 unit) capsule (Vitamin D3) empagliflozin 25 mg tablet 25 mg PO DAILY 12/10/24 Unknown History (Jardiance) insulin degludec 100 unit/mL (3 0 - 78 unit subcut QAM 12/10/24 Unknown History mL) subcutaneous pen (Tresiba FlexTouch U-100 insulin) metformin 500 mg tablet,extended 1,000 mg PO BID 12/10/24 Unknown History release 24 hr semaglutide 1 mg/dose (4 mg/3 mL) 1 mg subcut QWEEK 12/10/24 Unknown History subcutaneous pen injector (Ozempic) venlafaxine 75 mg capsule,extended 75 mg PO QAM 12/10/24 Unknown History release 24 hr Physical Exam Vital Signs and Narrative: Vital Signs: Last Vital Signs Temp 96.9 F 12/10/24 15:28 Pulse 100 12/10/24 15:28 Resp 18 12/10/24 15:28 BP 116/57 L 12/10/24 15:28 Pulse Ox 93 12/10/24 15:28 O2 Del Method Room Air 12/10/24 15:28 O2 Flow Rate 4 12/10/24 14:45 BMI result Body Mass Index 25.9 Const: Other: Awake alert no acute distress Resp: Other: Clear to auscultation bilaterally no rales rhonchi or wheezes Cardio: Other: No S4; positive S1-S2; no S3 murmurs rubs or gallops GI: Other: Soft nontender nondistended normoactive bowel sounds Extrem: Other: Right upper extremity with postop dressing CMS intact to right hand. No edema lower extremities Results Labs Labs: Laboratory Results - last 24 hr 12/10/24 08:24 POC Glucose 100 Assessment and Plan (1) Fracture of humeral shaft, right, closed: Qualifiers: Encounter type: subsequent encounter Fracture morphology: other fracture Status: Acute (2) Hyperlipidemia: Qualifiers: Hyperlipidemia type: unspecified Qualified Code(s): E78.5 - Hyperlipidemia, unspecified Status: Acute (3) Diabetes type 2: Qualifiers: Diabetes mellitus provider relations manager insulin use: with retirement use Diabetes mellitus complication status: with other specified complication Qualified Code(s): E11.69 - Type 2 diabetes mellitus with other specified complication; Z79.4 - half-way (current) use of insulin Status: Acute (4) HTN (hypertension): Qualifiers: Hypertension type: primary hypertension Qualified Code(s): I10 - Essential (primary) hypertension Status: Acute Plan 63-year-old female admitted for elective right humeral fixation secondary to nonunion. History of diabetes type 2/hypertension/hyperlipidemia all well controlled. 1. Fracture of right humeral shaft closed -as per ortho 2. Diabetes type 2 -lispro correctional scale -continue outpatient therapies accept for Ozempic -diabetic diet -adjust as indicated 3. Hypertension -acceptable control on current therapies -adjust as indicated 4. Hyperlipidemia -continue statin at outpatient dosing We will follow
[2024-12-10 16:58] LABS: Glucose, Whole Blood 125 mg/dL (60-115)
--- NOTE | 2024-12-10 18:23 | PHA.MEDREC ---
Addendum entered by Huang Weir [facility] 12/10/24 18:54: Med rec reviewed Original Note: Pharmacy Consult ? Medication Reconciliation Pharmacy has completed the medication reconciliation. Spoke to patient to confirm med list. Patient states she is no longer on Bisacodyl 10 mg supp. ,and fleet enema. Patient confirmed Tresiba 40 units daily, Ozempic 1 mg ever , last dose 11/28/24.
[2024-12-10 19:18] LABS: Glucose, Whole Blood 155 mg/dL (60-115)
[2024-12-10] MEDS: Insulin Lispro 100 UNIT/ML 3 ML VIAL SUBCUT (19:32)
[2024-12-10] MEDS: Celecoxib 200 MG CAPSULE PO (19:33)
[2024-12-10] MEDS: Docusate Sodium 100 MG CAPSULE PO (19:33)
[2024-12-10] MEDS: Acetaminophen 325 MG TABLET 650 MG PO (22:32)
[2024-12-10] MEDS: oxyCODONE HCl Immed Release 5 MG TABLET PO (22:33)
[2024-12-11] MEDS: Lactated Ringers 1,000 ML 100 ML IVCONT (01:36)
[2024-12-11 03:02] VITALS: BP 102/57; PULSE 103; RESP 20; TEMP 36.8; O2SAT 93
[2024-12-11] MEDS: Acetaminophen 325 MG TABLET 650 MG PO (05:52)
[2024-12-11] MEDS: oxyCODONE HCl Immed Release 5 MG TABLET PO ×2 (05:52→10:05)
[2024-12-11 05:54] LABS: MANUAL DIFF FLAG NO
[2024-12-11 06:03] LABS: Basophils Percent Auto 0.4 % (0-2); Hematocrit 31.5 % (37.0-47.0); Hemoglobin 10.5 g/dl (12.0-16.0); Imm Gran Abs Auto 0.04 X10*3/uL (0.00-0.03); Imm Gran Pct Auto 0.4 % (0.0-0.4); Lymphocytes Absolute Auto 1.5 X10*3/uL (1.2-4.9); Lymphocytes Percent Auto 15.1 % (20-40); Mean Corpuscular HGB Conc 33.3 g/dl (31.0-35.0); Mean Corpuscular Hemoglobin 29.8 pg (27.0-33.0); Mean Corpuscular Volume 89.5 fL (80.0-98.0); Mean Platelet Volume 9.6 fL (9.4-12.3); Monocytes Absolute Auto 0.9 X10*3/uL (0.1-1.2); Monocytes Percent Auto 9.1 % (2-11); Neutrophils Absolute Auto 7.4 x10*3/uL (2.0-8.3); Platelet Count 276 X10*3/uL (160-400); Red Blood Count 3.52 X10*6/uL (4.20-5.50); Red Cell Distribution Width 14.4 % (11.0-16.0); White Blood Count 9.9 X10*3/uL (4.8-10.8)
[2024-12-11 06:11] LABS: Anion Gap 13 (12-20); Blood Urea Nitrogen 25 mg/dL (9-16); Calcium 9.2 mg/dL (8.4-10.2); Carbon Dioxide 20 mmol/L (22-29); Chloride 109 mmol/L (96-108); Creatinine Clr Calc Pharmacy 74.7; Estimated Glomerular Filt Rate > 60; Glucose Fasting 119 mg/dL (60-99); Potassium 4.4 mmol/L (3.3-5.1); Sodium 138 mmol/L (135-145)
[2024-12-11 07:18] LABS: Glucose, Whole Blood 107 mg/dL (60-115)
[2024-12-11 07:47] VITALS: BP 99/62; PULSE 79; RESP 16; TEMP 36.2; O2SAT 98
[2024-12-11] MEDS: Celecoxib 200 MG CAPSULE PO (08:09)
--- NOTE | 2024-12-11 09:04 | MHC.CM.PN ---
pt dcd home self care prior to being seen by cm
[2024-12-11 10:45] VITALS: BP 118/60; PULSE 95; RESP 18; TEMP 36.9; O2SAT 95
--- NOTE | 2024-12-12 17:10 | W.PM.OPN ---
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 She was prepped and draped in standard sterile fashion and a time out was called to indentify proper site, proper procedure and IV antibiotics per weight were administered. I began by making a oblique incision from the anterior lateral acromion down laterally just posterior to the bicipital groove. Full-thickness skin flaps were taken down to the deltoid. The deltoid was split in line with its fibers and the bursa was resected revealing the supraspinatus. This was incised in line with the fibers and the cuff was retracted with suture and my start site was identified just on the edge of the articular surface just posterior to the bicipital groove. A K-wire was inserted and then an awl was used to penetrate into the canal. A reduction tool was then placed and a ball-tip guidewire was placed through this. I had difficulty passing the guidewire. This was likely due to pseudarthrosis around the distal fragment. I made several attempts but was not able to pass the guidewire so a 2 cm incision was made over the lateral humerus at the level of the fracture. Making sure to stay anterior to the humerus I dissected bluntly down to the pseudo arthritic capsule and callus bone. The distal fragment was identified and a curette was used to find the canal. Once this was done I felt for the ball-tip guidewire and used this into the distal fragment. Biplanar fluoroscopy was used to confirm intra osseous placement of the guidewire. I then measured a 260 mm kiel and reamed to an 8.5. A 7 x 260 was then placed from proximal to distal. The forearm was kept in 25 degrees of external rotation relative to the humeral shaft and biplanar fluoroscopy was used to confirm location of the kiel and reduction. I was satisfied with both. While maintaining rotation perfect hoon[place] technique was used to place 2 distal interlocking screws from lateral to medial. Proximally I placed 2 screws into the humeral head 1 bicortically just distal to the head itself in the other into the humeral head. Biplanar fluoroscopic views were taken to ensure the fracture was reduced hardware was in the appropriate location and it was not proud proximally. Once I was satisfied with this all the wounds were irrigated copiously. The rotator cuff is closed in line with its with the incision and subcutaneous tissues were closed with resorbable suture and that skin misty. Patient was placed into a sling extubated and brought to recovery room in stable condition. There were no known complications.
== END 2024-12-11 12:20 | disposition home or self-care (01) ==
LOC: HO.SSS 07:32 → HO.S3 14:41
PROVIDERS: Physician Assistant; Visit Provider Orthopaedic Surgery
PROC: (CPT 24516; principal; 2024-12-10 12:30)
DX: S42.301A Unspecified fracture of shaft of humerus, right arm, initial encounter for closed fracture (principal); X58.XXXA Exposure to other specified factors, initial encounter; Y93.9 Activity, unspecified; Y92.9 Unspecified place or not applicable; Y99.9 Unspecified external cause status; I10 Essential (primary) hypertension; E78.5 Hyperlipidemia, unspecified; E11.69 Type 2 diabetes mellitus with other specified complication; Z79.4 Long term (current) use of insulin; Z79.84 Long term (current) use of oral hypoglycemic drugs; Z79.85 Long-term (current) use of injectable non-insulin antidiabetic drugs; Z79.1 Long term (current) use of non-steroidal anti-inflammatories (NSAID); Z79.899 Other long term (current) drug therapy
CPT/HCPCS: 24516; 36415; 80048; 82947; 85025; 97165; C1713; J0131; J0665; J0690; J1100; J1171; J2003; J2250; J2405; J2704; J2795; J3010; J7120

== ENCOUNTER → 2024-12-10 07:31 | Outpatient (BNV) | payer MEDICARE, MEDICAID, SELFPAY | PROVIDERS: Visit Provider Orthopaedic Surgery | DX: Z47.89 Encounter for other orthopedic aftercare (principal); S72.301K Unspecified fracture of shaft of right femur, subsequent encounter for closed fracture with nonunion | CPT/HCPCS: 24516; 99024; G0180 ==

== ENCOUNTER → 2024-12-10 07:31 | Outpatient (BNV) | payer MEDICARE, MEDICAID, SELFPAY | PROVIDERS: Visit Provider Hospitalist | DX: S42.301A Unspecified fracture of shaft of humerus, right arm, initial encounter for closed fracture (principal); E11.69 Type 2 diabetes mellitus with other specified complication; Z79.4 Long term (current) use of insulin; E78.5 Hyperlipidemia, unspecified; I10 Essential (primary) hypertension | CPT/HCPCS: 99222 ==

== ENCOUNTER 2024-12-25 08:22 | Outpatient (REF) | payer MEDICARE, MEDICAID, SELFPAY ==
--- NOTE | ~2024-12-25 | XR_ITS ---
CLINICAL HISTORY: S42.301A - Unspecified fracture of shaft of humerus, right arm, initial ... 2 view right humerus Comparison: 12/06/2024 Findings: There is anatomic alignment of the humeral fracture fragments following open reduction with placement of the medullary kiel with proximal distal locking screws. The medullary right occupies perhaps 70-80% of the narrowest portion of the medullary canal. IMPRESSION: 1. Anatomic alignment of humeral fracture post open reduction internal fixation This document has been electronically signed by: Dontae Swan MD on 12/27/2024 08:55:33
--- OUTSIDE RECORDS SUMMARY | 2024-12-25 08:37 | XMS_ITS | Encounter Summary ---
Author Organization [employer] Address [address] [facility] [address] [place] [address] Care Team Providers Care Unit Secy Name Role Phone Jo AnnYnes BIOLOGY DEPARTMENT CHAIR Primary Care Provider [phone] Felicia Mcdermott RN Unavailable Reina Shen Unavailable Ronna Lopez BIOLOGY DEPARTMENT CHAIR Primary Care Provider [phone] Encounter Details Date Type Department Care Team (Late st Contact Info) Description 01/10/2024 Orders Only [facility] Information Management [address] [place], [place] [phone] Provider, Not In System Social History Tobacco [...] Description 03/25/2025 10:00 AM EDT Clinical Support [facility] [address] [place] [phone] Felicia Mcdermott, RN [address] [place] [phone] documented as of this encounter Procedures Procedure [...] documented as of this encounter Care Teams Unit Secy Relationship Specialty Start Date End Date Ynes Cherry FNP PCP - General Family Medicine 02/02/23 09/01/24 Ronna Lopez FNP [address] [place] [phone] PCP - General Family Medicine 09/02/24 Felicia Mcdermott RN [address] [place] [phone] Deicer Repairer Electric 05/24/23 Reina Shen [address] [place] [phone] [facility] 08/30/23 documented as of this encounter
--- OUTSIDE RECORDS SUMMARY | 2024-12-25 08:37 | XMS_ITS | Encounter Summary ---
Author Organization [employer] Address [address] [facility] [address] [place] [address] Care Team Providers Care Technician Anatomic Pathology Name Role Phone Ynes Cherry Primary Care Provider [phone] Felicia Mcdermott RN Unavailable Reina Shen Unavailable Ronna Lopez NANOSYSTEMS ENGINEER Primary Care Provider Reason for Visit * Reason Comments Med Refill Encounter Details Date Type Department Care Team (Late st Contact Info) Description 06/11/2024 Refill [facility] [address] [place] [phone] Ynes Cherry FNP [address] [place] [phone] Social History Tobacco Use Types Packs/Day [...] Center 09/17/2024 10:00 AM Felicia Mcdermott RN [facility] Comments: documented in this encounter Plan of Treatment Upcoming Encounters Date Type Department Care Team (Late st Contact Info) Description 03/25/2025 10:00 AM EDT Clinical Support [address] [phone] Felicia Mcdermott RN [address] [place] [phone] documented as of this encounter Visit Diagnoses Not on filedocumented in this encounter Additional Health Concerns Assessment Noted Time PHQ-9 Depression Total Score: 4 02/03/20 23 9:35 AM EDT documented as of this encounter Care Teams Technician Anatomic Pathology Relationship Specialty Start Date End Date Ynes Cherry FNP PCP - General Family Medicine 02/02/23 09/01/24 Ronna Lopez FNP [address] [place] [phone] PCP - General Family Medicine 09/02/24 Felicia Mcdermott RN [address] [place] [phone] Finishing Machine Operator 05/24/23 Reina Shen [address] [place] [phone] [facility] 08/30/23 documented as of this encounter
--- OUTSIDE RECORDS SUMMARY | 2024-12-25 08:37 | XMS_ITS | Encounter Summary ---
Author Organization [facility] [employer] [facility] Address [address] [place] [address] 7 [place] [address] Care Team Providers Care Pe Manager Name Role Phone Deedee Chappell MD Primary Care Provider [phone] Terri Bennett [facility] Primary Care Provider Unavail able King Cameron Unassigned Primary Care Provider U Ynes Bower [facility] Primary Care Provider [phone] Ynes Cherry [facility] Primary Care Provider Felicia Mcdermott RN Unavailable Reina Shen Unavailable Ronna Lopez [facility] Primary Care Provider Encounter Details Date Type Department Care Team (Late st Contact Info) Description 07/18/[address] [phone] Deedee Chappell MD [address] [place] [address] Social History Tobacco Use Types Packs/Day Years [...] Description 03/25/2025 10:00 AM EDT Clinical Support [address] [phone] Felicia Mcdermott RN [address] [place] [phone] documented as of this encounter Visit Diagnoses Not on filedocumented in this encounter Care Teams Pe Manager Relationship Specialty Start Date End Date Deedee Chappell MD [address] [place] [address] PCP - General Family Medicine 07/18/22 08/08/22 Terri Bennett FNP [address] [place] [address] PCP - General Family Medicine 08/09/22 12/05/22 King Cameron Unassigned PCP - General Family Medicine 12/06/22 12/20/22 Ynes Cherry FNP PCP - General Family Medicine 12/21/22 12/21/22 Ynes Cherry FNP PCP - General Family Medicine 02/02/23 09/01/24 Ronna Lopez FNP [address] [place] [address] PCP - General Family Medicine 09/02/24 Felicia Mcdermott RN [address] [place] [address] Creel Hand 05/24/23 Reina Shen [address] [place] [address] [facility] 08/30/23 documented as of this encounter
--- OUTSIDE RECORDS SUMMARY | 2024-12-25 08:37 | XMS_ITS | Encounter Summary ---
Author Organization [employer] Address [address] [facility] 7t [place] [address] Care Team Providers Care Tile Erector Name Role Phone Ynes Cherry Primary Care Provider [phone] Felicia Mcdermott RN Unavailable Reina Shen Unavailable Ronna Lopez SENIOR COLDFUSION DEVELOPER Primary Care Provider [phone] Encounter Details Date Type Department Care Team (Late st Contact Info) Description 06/09/[address] [facility] [address] [place] [address] Ynes Cherry FNP [address] [place] [address] [phone] Social History Tobacco Use Types Packs/Day Years [...] Description 03/25/2025 10:00 AM EDT Clinical Support [address] [phone] Felicia Mcdermott RN [address] [place] [phone] documented as of this encounter Visit Diagnoses Not on filedocumented in this encounter Additional Health Concerns Assessment Noted Time PHQ-9 Depression Total Score: 4 02/03/20 23 9:35 AM EDT documented as of this encounter Care Teams Tile Erector Relationship Specialty Start Date End Date Ynes Cherry FNP PCP - General Family Medicine 02/02/23 09/01/24 Ronna Lopez FNP [address] [place] [address] PCP - General Family Medicine 09/02/24 Felicia Mcdermott RN [address] [place] [address] Language Path 05/24/23 Reina Shen [address] [place] [address] [facility] 08/30/23 documented as of this encounter
--- OUTSIDE RECORDS SUMMARY | 2024-12-25 08:37 | XMS_ITS | Encounter Summary ---
Author Organization [employer] Address [address] [facility] 7t [place] [address] Care Team Providers Care Final Installer Inspector Name Role Phone Felicia Mcdermott RN Unavailable Reina Shen Unavailable Ronna Lopez Primary Care Provider [phone] Reason for Visit * Reason Onset Date Comments Care Coordination 11/07/2024 I spoke to jailene ashraf regarding Dexcom follow up. Patient reports he fractured her humerus and is in a rehab center. I advised she can call us when she gets back home to follow up with Felicia. Encounter Details Date Type Department Care Team (Late st Contact Info) Description 11/07/2024 Telephone [facility] [address] [place] [address] Ronna Lopez FNP [address] [place], [place] [phone] Care Coordination (I spoke to patient regarding [...] Description 03/25/2025 10:00 AM EDT Clinical Support [facility] [address] [place] [phone] Felicia Mcdermott, RN [address] [place] [phone] documented as of this encounter Visit Diagnoses Not on filedocumented in this encounter Additional Health Concerns Assessment Noted Time PHQ-9 Depression Total Score: 4 02/03/20 23 9:35 AM EDT documented as of this encounter Care Teams Final Installer Inspector Relationship Specialty Start Date End Date Ronna Lopez FNP [address] [place] [address] PCP - General Family Medicine 09/02/24 Felicia Mcdermott, RN [address] [place] [address] Cover Machine Operator 05/24/23 Reina Shen [address] [place] [address] [facility] 08/30/23 documented as of this encounter
--- OUTSIDE RECORDS SUMMARY | 2024-12-25 08:37 | XMS_ITS | Clinical Summary ---
Author Organization [employer] Address [address] [place] [address] 7t [place] [address] Care Team Providers Care Goodyear Stitcher Name Role Phone Felicia Mcdermott RN Unavailable Reina Shen Unavailable Ronna Lopez Primary Care Provider [phone] Allergies Active Allergy Reactions Criticality Noted Date Comments Codeine Nausea And Vomiting Low 08/19/2013 Other reaction(s): Nausea, Vomiting, Diarrhea Oxycodone-Acetaminoph en Nausea And Vomiting Low 08/19/2013 Other reaction(s): Nausea, Vomiting, Diarrhea Medications FreeStyle lancetsIndication s:Type 2 diabetes mellitus with diabetic neuropathy, with long-term current use of insulin (CMS/[facility]) 1 each by Other route 4 times daily. 400 each 3 02/03/20 23 Active glucose blood (FREESTYLE LITE) test stripIndications: Type 2 diabetes mellitus with diabetic neuropathy, with long-term current use of insulin (CMS/HCC) 1 each by Other route 2 times daily. 400 each 3 05/04/20 23 Active insulin degludec (Tresiba FlexTouch) 100 UNIT/ML injectionIndicati ons:Type 2 diabetes mellitus with diabetic neuropathy, with long-term current use of insulin (CMS/HCC) ADMINISTER UP TO 78 UNITS UNDER THE SKIN DAILY IN THE MORNING 70 mL 3 01/09/20 24 Active metFORMIN XR (Glucophage-XR) 500 MG 24 hr tabletIndications :Type 2 diabetes mellitus with diabetic neuropathy, with long-term current use of insulin (CMS/HCC) 500mg tabs, 2 tabs twice daily 360 tablet 3 01/10/20 24 Active cholecalciferol (Vitamin D-3) 25 MCG (1000 UT) capsuleIndication s:Vitamin D deficiency Take 1 capsule (25 mcg) by mouth Once per day. 90 capsule 3 02/22/20 24 Active insulin aspart (NovoLOG FLEXPEN) 100 UNIT/ML penIndications:Ty pe 2 diabetes mellitus with diabetic neuropathy, with long-term current use of insulin (CMS/[facility]) Sliding scale inject under the skin. Sliding scale with meals 70-110 none 111-150 2U 151-200 4 201-250 6 251-300 8 301-350 10 351-400 12 30 mL 11 03/20/20 24 Active insulin aspart, with niacinamide, (Fiasp) 100 UNIT/ML injectionIndicati ons:Type 2 diabetes mellitus with diabetic neuropathy, with long-term current use of insulin (CMS/HCC) Inject subcutaneousl y- Sliding scale TID with meals 70-110: none 111-150: 2U 151-200: 4U 201-250: 6U 251-300: 8U 301-350: 10U 351-400: 12U 30 mL 3 03/21/20 24 Active BD Pen Needle Nia 2nd Gen 32G X 4 MM miscIndications:T ype 2 diabetes mellitus with diabetic neuropathy, with long-term current use of insulin (CMS/HCC) USE TO INJECT 4 TIMES DAILY 400 each 3 04/10/20 24 Active lisinopril 5 MG tabletIndications :Primary hypertension Take 1 tablet (5 mg) by mouth Once per day. 90 tablet 3 09/30/19 25 Active rosuvastatin (Crestor) 10 MG tabletIndications :Type 2 diabetes mellitus with diabetic neuropathy, with long-term current use of insulin ([facility]/HCC),Hyperli pidemia, unspecified hyperlipidemia type TAKE 1 TABLET(10 MG) BY MOUTH DAILY 90 tablet 3 10/04/19 25 Active Ozempic, 1 MG/DOSE, 4 MG/3ML solution pen-injector INJECT 1MG SUBCUT ONCE WEEKLY 3 mL 1 10/04/19 25 Active hydrOXYzine HCl (Atarax) 5 mg split tablet 25 mg. 07/09/20 20 Active acetaminophen (Tylenol) 500 MG tablet Take 1,000 mg by mouth every 8 (eight) hours. 10/23/19 25 Active ARIPiprazole (Abilify) 5 MG tablet Take 5 mg by mouth at bed time. 10/18/19 25 Active Zofran 4 MG tablet Take 4 mg by mouth. 10/18/19 25 Active metFORMIN, OSM, (Fortamet) 1000 MG 24 hr tablet Take 1,000 mg by mouth every 12 (twelve) hours. 10/18/19 25 Active ketoconazole (NIZOral) 2 % shampooIndication s:Seborrhea capitis Apply topically 2 (two) times a week. 120 mL 3 11/26/19 25 Active Jardiance 25 MGIndications:Typ e 2 diabetes mellitus with other specified complication, unspecified whether local intermodal truck driver insulin use (CMS/[facility]) TAKE 1 TABLET(25 MG) BY MOUTH IN THE MORNING 90 tablet 3 12/20/19 25 Active empagliflozin (Jardiance) 25 MGIndications:Typ e 2 diabetes mellitus with other specified complication, unspecified whether local intermodal truck driver insulin use (CMS/[facility]) TAKE 1 TABLET(25 MG) BY MOUTH IN THE MORNING 90 tablet 3 03/19/20 24 2024 Discontinued ibuprofen 600 MG tabletIndications :Closed fracture of proximal end of right humerus with routine healing, unspecified fracture morphology, subsequent encounter Take 1 tablet (600 mg) by mouth 3 times daily. 90 tablet 11/16/19 25 2024 HYDROmorphone (Dilaudid) 4 MG tabletIndications :Closed fracture of proximal end of right humerus with routine healing, unspecified fracture morphology, subsequent encounter Take 0.5 tablets (2 mg) by mouth every 4 (four) hours if needed for severe pain for up to 28 days. 84 tablet 11/23/19 25 2024 sulfamethoxazole- trimethoprim (Bactrim DS) 800-160 MG tablet Take 1 tablet by mouth 2 times daily for 10 days. 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 Encounters Date Type Department Care Team Description 12/19/[address] [phone] Ynes Cherry FNP Type 2 diabetes mellitus with other specified complication, unspecified whether local intermodal truck driver insulin use ([facility]) 12/18/[address] [phone] Ronna Lopez FNP 11/26/2024 Orders Only [address] [phone] Ronna Lopez FNP Staph infection (Primary Dx) 11/22/2024 12:40 PM EDT Office Visit [address] [phone] Ronna Lopez FNP Seborrhea capitis (Primary Dx); Closed fracture of proximal end of right humerus with routine healing, unspecified fracture morphology, subsequent encounter; Localized swelling on right hand 11/22/[address] [phone] Ronna Lopez FNP 11/15/2024 1:40 PM EDT Office Visit [address] [phone] Ronna Lopez FNP Closed fracture of proximal end of right humerus with routine healing, unspecified fracture morphology, subsequent encounter (Primary Dx) 11/12/2024 Patient Outreach [facility] [address] [facility] [address] [place] [address] Stephanie English LPN Transition Of Care (Tcm) (LEXY, discharged from snf 11/11/2024) 11/08/2024 Population Health Risk Score [facility] () Department [address] [place] [phone] Provider, Population Health Generic 11/07/[address] [phone] Ronna Lopez FNP Care Coordination (I spoke to patient regarding Dexcom follow up. Patient reports he fractured her humerus and is in a rehab center. I advised she can call us when she gets back home to follow up with Felicia.) 10/02/[address] [phone] Ronna Lopez FNP 10/02/[address] [phone] Ynes Cherry FNP Type 2 diabetes mellitus with diabetic neuropathy, with long-term current use of insulin ([facility]); Hyperlipidemia, unspecified hyperlipidemia type 09/30/[address] [place] [address] Ronna Lopez FNP Primary hypertension 09/29/[address] [phone] Ynes Cherry FNP Primary hypertension from Last 3 Months Immunizations Name Administration [...] Description 03/25/2025 10:00 AM EDT Clinical Support [address] [phone] Felicia Mcdermott, RN [address] [place] [address] Health Maintenance Due Date Last Done Comments CT Colonography 1958 FIT DNA/Cologuard 1960 Sigmoidoscopy 1958 Hepatitis A Vaccines (1 of 2 - Risk 2-dose series) 1977 Hepatitis B Vaccines (1 of 3 - Risk 3-dose series) 2018 RSV Patients and Patients Aged 60 years or older (1 - Risk 60-74 years 1-dose series) 2018 FOBT 04/04/2024 04/04/2023, 09/0 09/2021, 04/21/2021, Additional history exists COVID-19 Vaccine [...] Routine 11/22/2024 3:31 PM EDT Seborrhea capitis HEMOGLOBIN A1C WITH MPG Routine 09/17/2024 10:21 AM EST Type 2 diabetes mellitus with diabetic neuropathy, with long-term current use of insulin ([facility]/HCC) LIPID PANEL WITH REFLEX TO DIRECT LDL Routine 09/17/2024 10:21 AM EST Type 2 diabetes mellitus with diabetic neuropathy, with long-term current use of insulin (CMS/HCC) ALBUMIN, RANDOM URINE W/CREATININE Routine 05/22/2024 11:41 AM EDT Diabetes mellitus without complication ([facility]/HCC) BI MAMMOGRAM SCREENING TOMOSYNTHESIS BILATERAL Routine 01/05/2024 2:20 PM EDT DIABETES EYE EXAM Routine 06/13/2023 OCCULT BLOOD, FECAL, IMMUNOASSAY Routine 04/04/2023 9:25 AM EDT Encounter for screening for malignant neoplasm of colon COLONOSCOPY Routine 04/29/2022 HEPATITIS C ANTIBODY Routine 02/11/2019 from Last 3 Months or Most Recently Relevant to Health Maintenance Results * (ABNORMAL) Culture, Aerobic Bacteria (11/22/2024 3:31 PM EDT) Culture, Aerobic Bacteria SEE NOTE(A) [facility] Comment: ??CULTURE, AEROBIC BACTERIA ?Micro Number: ?[id number] ??Test Status: ? Final ??Specimen Source: ?? [...] 11/25/2024 11:27 AM EDT FASTING:UNKNOWN FASTING: UNKNOWN us Ronna Lopez FOCUSED FACTORY MANAGER LAB MICROBIOLOGY - GENERAL ORDER PHUONG Final Result [facility] [address] [facility], [facility], [place] [address] [facility] [place] [facility] [address] [place] [address] * (ABNORMAL) Lipid Panel with Reflex to Direct LDL (09/17/2024 10:21 AM EST) [facility] Signature Cholesterol, Total 119 <200 mg/dL [facility] [place] [facility] HDL Cholesterol 38(L) > OR = 50 mg/dL [facility] [place] [facility] Triglycerides 263(H) <150 mg/dL [facility] [place] [facility] Comment: If a non-fasting specimen was collected, consider repeat triglyceride testing on a fasting specimen if clinically indicated. Chema et al. J. of Clin. Lipidol. 2015;9:129-169. LDL Cholesterol 50 mg/dL [facility] [place] [facility] Comment: Reference range: <100 Desirable range <100 mg/dL for primary prevention; ?? <70 mg/dL for patients with CHD or diabetic patients with > or = 2 CHD risk factors. LDL-C is now calculated using the Shahram-Elder calculation, which is a validated novel method providing better accuracy than the Friedewald equation in the estimation of LDL-C. Shahram SS et al. ARIANE. 2013;310(19): 0758-1438 (http://education.DermLink.Sweetie High/faq/EUB308) Chol/HDLC Ratio 3.1 <5.0 (calc) [facility] [place] [facility] Non-HDL Cholesterol 81 <130 mg/dL [facility] [place] [facility] Comment: For patients with diabetes plus 1 major ASCVD risk factor, treating to a non-HDL-C goal of <100 mg/dL (LDL-C of <70 mg/dL) is considered a therapeutic option. Blood 09/17/2024 10:2 1 AM EST 09/17/2024 10:22 AM EST Narrative [facility] - 09/17/2024 9:57 PM EST FASTING:NO FASTING: NO Ronna Lopez [facility] BLOOD ORDERABLES Final Resul t Performing Organization Address [facility] de Phone Number [address], [place] [address] [facility] [place] [email or web address] [address] [place] [phone] * (ABNORMAL) Hemoglobin A1c with Calculated Mean Plasma Glucose (MPG) (09/17/2024 10:21 AM EST) Hemoglobin A1c 5.8(H) <5.7 % of total Hgb [facility] Comment: For someone without known diabetes, a [...] children. Mean Plasma Glucose 129 mg/dL (calc) [facility] 09/17/2024 10:2 1 AM EST 09/17/2024 10:22 AM EST Narrative [facility] - 09/17/2024 9:57 PM EST FASTING:NO FASTING: NO Ronna Lopez [facility] BLOOD ORDERABLES Final Resul t Performing Organization Address [facility] Co de Phone Number ROBY [address] [place] [address], [facility] [place] [address] [facility] [place] [email or web address] [address] [place] [phone] * Albumin, Random Urine W/Creatinine (05/22/2024 11:41 AM EDT) Creatinine, Random Urine 91 20 - 275 mg/dL [facility] Albumin, Urine 0.9 See Note: mg/dL [facility] Comment: Reference Range: Reference Range Not established Albumin/Creatinin e Ratio, Random Urine 10 <30 mg/g creat [facility] [place] [facility] Comment: The ADA defines abnormalities in albumin [...] PM EDT FASTING:NO FASTING: NO Ynes Cherry [facility] URINE ORDERABLES Final Res ult [email or web address] [address] [place] [address], [place] [address] [facility] [place] [facility] [address] [place] [address] * BI Mammogram Screening Tomosynthesis Bilateral (01/05/2024 [...] (Benign) Lay letter mailed to patient WSN: [id number] Ordering Physician: Ynes Cherry Dictated By: ?Juwan Romano MD Dictated Date/Time: ?01/05/24 4:58 pm Reviewed By: ?Juwan Romano MD Signed By: ? Juwan Romano MD Signed Date/Time: ? 01/05/24 4:58 pm Transcribed By: ? CSB Sports Attorney Date/Time: ? 01/05/24 4:54 pm Birads: Procedure Note Donbaljeetter, Image - 01/05/2024 PROCEDURE: MM Digital Mammo [...] (Benign) Lay letter mailed to patient WSN: [id number] Ordering Physician: Ynes Cherry Dictated By: Juwan Romano MD Dictated Date/Time: 01/05/24 4:58 pm Reviewed By: Juwan Romano MD Signed By: Juwan Romano MD Signed Date/Time: 01/05/24 4:58 pm Transcribed By: CSB Sports Attorney Date/Time: 01/05/24 4:54 pm Birads: Result [facility] Ynes GALEANA IMG BI PROCEDURES Final Result * Diabetes Eye Exam (06/13/2023) Eye Exam Normal Normal Comment:REPEAT EYE EXAMIN 1 MONTH Result [facility] Historical Provider HEALTH MAINTENANCE Final Result * Occult Blood, Fecal, Immunoassay (04/04/2023 9:25 AM EDT) Fecal Occult Blood, Immunochemical (FIT) NEGATIVE (NEG) [facility] Comment: Testing performed or reported by [facility], a Service of [facility], [address] [place] [address] King Hamm MD, Equipment Operator Wage Hand [facility]# [id number] 04/04/2023 9:25 AM EDT 04/10/2023 9:31 AM EDT Result [facility] Ynes GALEANA LAB BODY FLUIDS AND STOOLS ORD ERABLES Final Result [facility] [address] [place] [address] * Colonoscopy (04/29/2022) Colonoscopy FIT NEGATIVE Result [facility] Historical Tiff YUN HEALTH MAINTENANCE Final Result * Hepatitis C Antibody (02/11/2019) Hepatitis C Antibody Nonreactive Blood Result [facility] Historical Tiff YUN HEALTH MAINTENANCE Final Result from Last 3 Months or Most Recently Relevant to Health Maintenance Insurance [facility] STANDARD MEDICARE * Guarantor: Matilde Ferrer Account Type Relation to Patient Date of Phone Billing Address Dental Self Care Teams Goodyear Stitcher Relationship Specialty Start Date End Date Ronna Lopez FNP [address] [place] [phone] PCP - General Family Medicine 09/02/24 Felicia Mcdermott, BETSY [address] [place] [phone] Otter Trawler Boatswain 05/24/23 Reina Shen [address] [place] [phone] [facility] 08/30/23
--- OUTSIDE RECORDS SUMMARY | 2024-12-25 08:37 | XMS_ITS | Encounter Summary ---
Author Organization [employer] Address [address] [facility] 7t [place] [address] Care Team Providers Care Safety Instructor Name Role Phone Ynes Cherry Primary Care Provider [phone] Felicia Mcdermott RN Unavailable Reina Shen Unavailable Ronna Lopez WELDER HELPER Primary Care Provider [phone] Encounter Details Date Type Department Care Team (Late st Contact Info) Description 02/06/[address] [facility] [address] [place] [address] Ynes Cherry FNP [address] [place] [address] [phone] Social History Tobacco Use Types Packs/Day Years [...] Description 03/25/2025 10:00 AM EDT Clinical Support [address] [phone] Felicia Mcdermott, RN [address] [place] [phone] documented as of this encounter Visit Diagnoses Not on filedocumented in this encounter Additional Health Concerns Assessment Noted Time PHQ-9 Depression Total Score: 4 02/03/20 9:35 AM EDT documented as of this encounter Care Teams Safety Instructor Relationship Specialty Start Date End Date Ynes Cherry FNP PCP - General Family Medicine 02/02/23 09/01/24 Ronna Lopez FNP [address] [place] [address] PCP - General Family Medicine 09/02/24 Felicia Mcdermott, RN [address] [place] [phone] Executive Vice President Business Development 05/24/23 Reina Shen [address] [place] [phone] [facility] 08/30/23 documented as of this encounter
--- OUTSIDE RECORDS SUMMARY | 2024-12-25 08:37 | XMS_ITS | Encounter Summary ---
Author Organization [employer] Address [address] [place] [address] 7t [place] [address] Care Team Providers Care Design And Sales Consultant Name Role Phone Felicia Mcdermott RN Unavailable Reina Shen Unavailable Ronna Lopez Primary Care Provider [phone] Encounter Details Date Type Department Care Team ([facility] [place] st Contact Info) Description 12/18/2024 Telephone [facility] [address] [place] [address] Ronna Lopez FNP [address] [place] [address] Social History Tobacco Use Types Packs/Day Years [...] the past 12 months, has t he [employer], gas, oil or water [employer] threatened to shut off services in your [...] encounter Miscellaneous Notes * Telephone Encounter - Kareem Sam RN - 2024 5:48 PM EDT Called patient to check in, reports she is feeling well at this time, no concerns. VNA comes to seeher once a week, advised patient to reach out to clinic if questions/concerns arise. * Telephone Encounter - Lucero Ren - 12/18/2024 8:16 AM EDT FYI Overlook Patient had a Low BP 89/58 And radial Heart rate of 106 yesterday, any questions call back Call back# [phone] documented in this encounter Plan of Treatment Upcoming Encounters Date Type Department Care Team (Late st Contact Info) Description 03/25/2025 10:00 AM EDT Clinical Support [facility] [address] [place] [phone] Felicia Mcdermott, RN [address] [place] [address] documented as of this encounter Visit Diagnoses Not on filedocumented in this encounter Additional Health Concerns Assessment Noted Time PHQ-9 Depression Total Score: 4 02/03/20 9:35 AM EDT documented as of this encounter Care Teams Design And Sales Consultant Relationship Specialty Start Date End Date Ronna Lopez FNP [address] [place] [address] PCP - General Family Medicine 09/02/24 Felicia Mcdermott, RN [address] [place] [address] Machinery Rigger 05/24/23 Reina Shen [address] [place] [address] [facility] 08/30/23 documented as of this encounter
--- OUTSIDE RECORDS SUMMARY | 2024-12-25 08:37 | XMS_ITS | Encounter Summary ---
Author Organization [employer] Address [address] [place] [address] 7t [place] [address] Care Team Providers Care Diaper Machine Tender Name Role Phone Felicia Mcdermott RN Unavailable Reina Shen Unavailable Ronna Lopez Primary Care Provider [phone] Encounter Details Date Type Department Care Team ([facility] st Contact Info) Description 11/22/2024 Telephone [facility] [address] [place] [address] Ronna Lopez FNP 102 [place] [address] Social History Tobacco Use Types Packs/Day Years [...] the past 12 months, has t he [employer], gas, oil or water [employer] threatened to shut off services in your [...] Description 03/25/2025 10:00 AM EDT Clinical Support [facility] [address] [place] [phone] Felicia Mcdermott, RN [address] [place] [address] documented as of this encounter Visit Diagnoses Not on filedocumented in this encounter Additional Health Concerns Assessment Noted Time PHQ-9 Depression Total Score: 4 02/03/20 23 9:35 AM EDT documented as of this encounter Care Teams Diaper Machine Tender Relationship Specialty Start Date End Date Ronna Lopez FNP [address] [place] [address] PCP - General Family Medicine 09/02/24 Felicia Mcdermott, RN [address] [place] [address] Plate Shear Operator 05/24/23 Reina Shen [address] [place] [address] [facility] 08/30/23 documented as of this encounter
--- OUTSIDE RECORDS SUMMARY | 2024-12-25 08:37 | XMS_ITS | Encounter Summary ---
Author Organization [employer] Address 75 [facility] 7t [place] [address] Care Team Providers Care Food Mixer Name Role Phone Ynes Cherry Primary Care Provider [phone] Felicia Mcdermott RN Unavailable Reina Shen Unavailable Ronna Lopez RESPITE COORDINATOR Primary Care Provider [phone] Encounter Details Date Type Department Care Team (Late st Contact Info) Description 06/09/2023 Abstract [facility] 102 [place] [address] Ynes Cherry FNP [address] [place] [address] [phone] Social History Tobacco Use Types Packs/Day Years [...] Description 03/25/2025 10:00 AM EDT Clinical Support [address] [phone] Felicia Mcdermott RN [address] [place] [phone] documented as of this encounter Visit Diagnoses Not on filedocumented in this encounter Additional Health Concerns Assessment Noted Time PHQ-9 Depression Total Score: 4 02/03/20 23 9:35 AM EDT documented as of this encounter Care Teams Food Mixer Relationship Specialty Start Date End Date Ynes Cherry FNP PCP - General Family Medicine 02/02/23 09/01/24 Ronna Lopez FNP [address] [place] [address] PCP - General Family Medicine 09/02/24 Felicia Mcdermott RN [address] [place] [phone] Clearing Supervisor 05/24/23 Reina Shen [address] [place] [phone] [facility] 08/30/23 documented as of this encounter
== END 2024-12-25 08:23 | disposition home or self-care (01) ==
LOC: HO.HOSX 08:22
DX: S42.301D Unspecified fracture of shaft of humerus, right arm, subsequent encounter for fracture with routine healing (principal); Z98.890 Other specified postprocedural states
CPT/HCPCS: 73060; 99212

== ENCOUNTER 2024-12-25 09:20 | Outpatient (AMB) | payer MEDICARE, MEDICAID, SELFPAY ==
--- NOTE | 2024-12-25 09:25 | A.OFFVIS_ITS ---
Vital Signs 12/25/24 09:28 Height 5 ft 8 in Weight 176 lb BMI 26.8 Intake Visit Reasons: PO-Rt Humerus IMN 12/10/24 NE Intake Note: Matilde is a 63 year old right female who presents today for a post operative visit s/p RT humerus IMN, DOS 12/10/24 NE. Patient reports that she is doing well, she continues to have some soreness but she is managing this with Tylenol and Ibupr ofen. Denies numbness and tingling Allergies No Known Allergies Allergy (Verified 12/06/24 10:34) HPI HPI PO-Rt Humerus IMN 12/10/24 NE: Details: Matilde is a 63 year old right female who presents today for a post operative visit s/p RT humerus IMN, DOS 12/10/24 NE. Patient reports that she is doing well, she continues to have some soreness but she is managing this with Tylenol and Ibuprofen. Patient has been doing gentle range of motion of the right shoulder, elbow, wrist, but has not done any weight-bearing of the right arm. Denies numbness and tingling [facility] Medical History (Updated 12/14/24 @ 00:01 by Hugh Archuleta) Diabetes type 2 Hyperlipidemia HTN (hypertension) Anxiety Diabetes High cholesterol GERD (gastroesophageal reflux disease) Surgical History H/O cervical spine surgery Hx of hysterectomy Social History Household Members: None Housing: Apartment Alcohol intake: never Patient Tobacco Use Status: Never used Tobacco Current occupational status: retired and disabled Current occupation: right hand dominant Review of Systems Const All systems reviewed & are unremarkable except as noted in HPI and below Physical Exam Vital Signs: BMI result Body Mass Index 26.8 Extrem Other: On inspection, there is no visible deformity of the right arm No edema, erythema, ecchymosis noted Well approximated and well healing incision sites noted over the humerus of the right arm No evidence of infection Patient reports no tenderness to palpation of the right proximal arm Patient is able to flex and extend the right elbow, but this is fairly limited due to minor pain Distal sensation intact Capillary refill brisk Results Reviewed Results Reviewed: X-rays obtained in the office today and independently reviewed by me, Federico Dong PA-C, demonstrate surgically reduced fracture of the right humeral shaft with all orthopedic hardware in place and in satisfactory clinical alignment and with some evidence of interval bony healing. Assessment & Plan Assessment & Plan (1) Fracture of humeral shaft, right, closed: Code(s): S42.301A - Unspecified fracture of shaft of humerus, right arm, initial encounter for closed fracture Category: Medical Qualifiers: Encounter type: subsequent encounter Fracture morphology: other fracture Plan 1. Status post right humeral IM nail DOS 12/10/2024 Patient appears to be recovering well postoperatively Patient is educated about the typical recovery course At this time, organized physical therapy is ordered for the patient to begin working on early range of motion of the right elbow and shoulder Patient is educated she should be out of the sling most of the time, only wearing it and crowded situations or when she is at high-risk for fall Fawad removed, Steri-Strips applied Follow-up in 4 weeks with repeat x-rays for reassessment, sooner with any acute concerns Orders: Orders PT Evaluation and Treatment 12/25/24 S42.301A - Unspecified fracture of shaft of humerus, right arm, initial encounter for closed fracture XR humerus RT 12/25/24 S42.301A - Unspecified fracture of shaft of humerus, right arm, initial encounter for closed fracture Coding Level of Care Code Global (18195) Diagnoses Fracture of humeral shaft, right, closed S42.301A Encounter type: subsequent encounter Fracture morphology: other fracture
[2024-12-25 09:28] VITALS: BMI 26.8
--- OUTSIDE RECORDS SUMMARY | 2024-12-25 09:57 | XMS_ITS | Encounter Summary ---
Author Organization [employer] Address 75 [facility] 7t [place] [address] Care Team Providers Care Customer Account Manager Name Role Phone Ynes Cherry Primary Care Provider [phone] Felicia Mcdermott RN Unavailable Reina Shen Unavailable Ronna Lopez OPERATIONS INTELLIGENCE Primary Care Provider [phone] Reason for Visit * Reason Comments Med Refill Encounter Details Date Type Department Care Team (Late st Contact Info) Description 06/11/2024 Refill [facility] [address] [place] [address] Ynes Cherry FNP [address] [place] [address] Social History Tobacco Use Types Packs/Day [...] Center 09/17/2024 10:00 AM Felicia Mcdermott RN [facility] Comments: documented in this encounter Plan of Treatment Upcoming Encounters Date Type Department Care Team (Late st Contact Info) Description 03/25/2025 10:00 AM EDT Clinical Support [address] [phone] Felicia Mcdermott RN [address] [place] [address] documented as of this encounter Visit Diagnoses Not on filedocumented in this encounter Additional Health Concerns Assessment Noted Time PHQ-9 Depression Total Score: 4 02/03/20 23 9:35 AM EDT documented as of this encounter Care Teams Customer Account Manager Relationship Specialty Start Date End Date Ynes Cherry FNP PCP - General Family Medicine 02/02/23 09/01/24 Ronna Lopez FNP [address] [place] [address] PCP - General Family Medicine 09/02/24 Felicia Mcdermott RN [address] [place] [address] Batter Depositor 05/24/23 Reina Shen [address] [place] [phone] [facility] 08/30/23 documented as of this encounter
--- OUTSIDE RECORDS SUMMARY | 2024-12-25 09:57 | XMS_ITS | Encounter Summary ---
Author Organization [employer] Address 75 [facility] 7t [place] [address] Care Team Providers Care Mosaic Tiler Name Role Phone Jo AnnYnes THERMOSPRAY OPERATOR Primary Care Provider [phone] Felicia Mcdermott RN Unavailable Reina Shen Unavailable Ronna Lopez THERMOSPRAY OPERATOR Primary Care Provider [phone] Encounter Details Date Type Department Care Team (Late st Contact Info) Description 01/10/[address] [facility] Information Management [address] [place], [place] [phone] Provider, Not In System Social History Tobacco [...] Description 03/25/2025 10:00 AM EDT Clinical Support [facility] [address] [place] [phone] Felicia Mcdermott, RN [address] [place] [address] documented as of this encounter Procedures Procedure [...] documented as of this encounter Care Teams Mosaic Tiler Relationship Specialty Start Date End Date Ynes Cherry FNP PCP - General Family Medicine 02/02/23 09/01/24 Ronna Lopez FNP [address] [place] [address] PCP - General Family Medicine 09/02/24 Felicia Mcdermott RN [address] [place] [address] Cell Attendant Helper 05/24/23 Reina Shen [address] [place] [address] [facility] 08/30/23 documented as of this encounter
--- OUTSIDE RECORDS SUMMARY | 2024-12-25 09:57 | XMS_ITS | Encounter Summary ---
Author Organization [facility] [employer] [facility] Address [address] [place] [address] 7 [place] [address] Care Team Providers Care Flat Spring Assembler Name Role Phone Deedee Chappell MD Primary Care Provider Terri Bennett [facility] Primary Care Provider Unavail able [place] Unassigned Primary Care Provider U Ynes Bower [facility] Primary Care Provider Ynes Cherry [facility] Primary Care Provider Felicia Mcdermott RN Unavailable Reina Shen Unavailable Ronna Lopez [facility] Primary Care Provider Encounter Details Date Type Department Care Team (Late st Contact Info) Description 07/18/[address] [phone] Deedee Chappell MD [address] [place] [address] Social History Tobacco Use Types Packs/Day Years [...] Description 03/25/2025 10:00 AM EDT Clinical Support [address] [phone] Felicia Mcdermott RN [address] [place] [address] documented as of this encounter Visit Diagnoses Not on filedocumented in this encounter Care Teams Flat Spring Assembler Relationship Specialty Start Date End Date Deedee Chappell MD [address] [place] [address] PCP - General Family Medicine 07/18/22 08/08/22 Terri Bennett FNP [address] [place] [address] PCP - General Family Medicine 08/09/22 12/05/22 [place] Unassigned PCP - General Family Medicine 12/06/22 12/20/22 Ynes Cherry FNP PCP - General Family Medicine 12/21/22 12/21/22 Ynes Cherry FNP PCP - General Family Medicine 02/02/23 09/01/24 Ronna Lopez FNP [address] [place] [address] PCP - General Family Medicine 09/02/24 Felicia Mcdermott RN [address] [place] [address] Forging Press Lever Tender 05/24/23 Reina Shen [address] [place] [address] [facility] 08/30/23 documented as of this encounter
--- OUTSIDE RECORDS SUMMARY | 2024-12-25 09:58 | XMS_ITS | Encounter Summary ---
Author Organization [employer] Address [address] [place] [address] 7t [place] [address] Care Team Providers Care Holistic Specialist Name Role Phone Felicia Mcdermott RN Unavailable Reina Shen Unavailable Ronna Lopez Primary Care Provider [phone] Encounter Details Date Type Department Care Team ([facility] st Contact Info) Description 11/22/[address] [facility] 102 [place] [address] Ronna Lopez FNP 102 [place] [address] Social History Tobacco Use Types Packs/Day Years [...] the past 12 months, has t he [employer], gas, oil or water [employer] threatened to shut off services in your [...] Description 03/25/2025 10:00 AM EDT Clinical Support [facility] [address] [place] [phone] Felicia Mcdermott, RN [address] [place] [address] documented as of this encounter Visit Diagnoses Not on filedocumented in this encounter Additional Health Concerns Assessment Noted Time PHQ-9 Depression Total Score: 4 02/03/20 23 9:35 AM EDT documented as of this encounter Care Teams Holistic Specialist Relationship Specialty Start Date End Date Ronna Lopez FNP [address] [place] [address] PCP - General Family Medicine 09/02/24 Felicia Mcdermott, RN [address] [place] [address] Popcorn Vendor 05/24/23 Reina Shen [address] [place] [address] [facility] 08/30/23 documented as of this encounter
--- OUTSIDE RECORDS SUMMARY | 2024-12-25 09:58 | XMS_ITS | Encounter Summary ---
Author Organization [employer] Address 75 [facility] 7t [place] [address] Care Team Providers Care Wind Operations Supervisor Name Role Phone Ynes Cherry Primary Care Provider [phone] Felicia Mcdermott RN Unavailable Reina Shen Unavailable Ronna Lopez PANEL BUILDER Primary Care Provider [phone] Encounter Details Date Type Department Care Team (Late st Contact Info) Description 06/09/2023 Abstract [facility] 102 [place] [address] Ynes Cherry FNP [address] [place] [address] [phone] Social History Tobacco Use Types Packs/Day Years Used Date Smoking Tobacco: Former Cigarettes Q uit: 2010 Smokeless Tobacco: Never Comments:Quit 13 years ago Alcohol Use Standard Drinks/Week Comments Never 0 (1 standard drink = 0.6 oz pur e alcohol) Depression Answer Date Recorded Patient Health Questionnaire-9 Score 4 02/02/2023 Housing Stability Answer Date Recorded What is your housing situation today? I have kamlia manley 06/05/[address] you [...] Description 03/25/2025 10:00 AM EDT Clinical Support [address] [phone] Felicia Mcdermott RN [address] [place] [address] documented as of this encounter Visit Diagnoses Not on filedocumented in this encounter Additional Health Concerns Assessment Noted Time PHQ-9 Depression Total Score: 4 02/03/20 23 9:35 AM EDT documented as of this encounter Care Teams Wind Operations Supervisor Relationship Specialty Start Date End Date Ynes Chrery FNP PCP - General Family Medicine 02/02/23 09/01/24 Ronna Lopez FNP [address] [place] [address] PCP - General Family Medicine 09/02/24 Felicia Mcdermott RN [address] [place] [address] Mobile Disc Jockey 05/24/23 Reina Shen [address] [place] [phone] [facility] 08/30/23 documented as of this encounter
--- OUTSIDE RECORDS SUMMARY | 2024-12-25 09:58 | XMS_ITS | Encounter Summary ---
Author Organization [employer] Address [address] [place] [address] 7t [place] [address] Care Team Providers Care Housekeeping Room Inspector Name Role Phone Felicia Mcdermott RN Unavailable Reina Shen Unavailable Ronna Lopez Primary Care Provider [phone] Encounter Details Date Type Department Care Team ([facility] st Contact Info) Description 12/18/2024 Telephone [facility] [address] [place] [address] Ronna Lopez FNP [address] [place] [address] Social History Tobacco Use Types Packs/Day Years [...] the past 12 months, has t he [employer], gas, oil or water [employer] threatened to shut off services in your [...] yesterday, any questions call back Call back# [phone] documented in this encounter Plan of Treatment Upcoming Encounters Date Type Department Care Team (Late st Contact Info) Description 03/25/2025 10:00 AM EDT Clinical Support [facility] [address] [place] [phone] Felicia Mcdermott, RN [address] [place] [address] documented as of this encounter Visit Diagnoses Not on filedocumented in this encounter Additional Health Concerns Assessment Noted Time PHQ-9 Depression Total Score: 4 02/03/20 9:35 AM EDT documented as of this encounter Care Teams Housekeeping Room Inspector Relationship Specialty Start Date End Date Ronna Lopez FNP [address] [place] [address] PCP - General Family Medicine 09/02/24 Felicia Mcdermott, RN [address] [place] [address] Career Guidance Counselor 05/24/23 Reina Shen [address] [place] [phone] [facility] 08/30/23 documented as of this encounter
--- OUTSIDE RECORDS SUMMARY | 2024-12-25 09:58 | XMS_ITS | Encounter Summary ---
Author Organization [employer] Address 75 [facility] 7t [place] [address] Care Team Providers Care Referral Manager Name Role Phone Ynes Cherry Primary Care Provider [phone] Felicia Mcdermott RN Unavailable Reina Shen Unavailable Ronna Lopez NEAR EASTERN ARCHAEOLOGY LECTURER Primary Care Provider [phone] Encounter Details Date Type Department Care Team (Late st Contact Info) Description 06/09/2023 Abstract [facility] [address] [place] [address] Ynes Cherry FNP [address] [place] [address] [phone] Social History Tobacco Use Types Packs/Day Years [...] Description 03/25/2025 10:00 AM EDT Clinical Support [address] [phone] Felicia Mcdermott RN [address] [place] [address] documented as of this encounter Visit Diagnoses Not on filedocumented in this encounter Additional Health Concerns Assessment Noted Time PHQ-9 Depression Total Score: 4 02/03/20 23 9:35 AM EDT documented as of this encounter Care Teams Referral Manager Relationship Specialty Start Date End Date Ynes Cherry FNP PCP - General Family Medicine 02/02/23 09/01/24 Ronna Lopez FNP [address] [place] [address] PCP - General Family Medicine 09/02/24 Felicia Mcdermott RN [address] [place] [address] Crisis Nurse 05/24/23 Reina Shen [address] [place] [phone] [facility] 08/30/23 documented as of this encounter
--- OUTSIDE RECORDS SUMMARY | 2024-12-25 09:58 | XMS_ITS | Clinical Summary ---
Author Organization [employer] Address [address] [place] [address] 7[address] [place] [address] Care Team Providers Care Composition Roll Maker And Cutter Name Role Phone Felicia Mcdermott RN Unavailable Reina Shen Unavailable Ronna Lopez Primary Care Provider [phone] Allergies Active Allergy Reactions Criticality Noted Date Comments Codeine Nausea And Vomiting Low 08/19/2013 Other reaction(s): Nausea, Vomiting, Diarrhea Oxycodone-Acetaminoph en Nausea And Vomiting Low 08/19/2013 Other reaction(s): Nausea, Vomiting, Diarrhea Medications FreeStyle lancetsIndication s:Type 2 diabetes mellitus with diabetic neuropathy, with long-term current use of insulin (CMS/[facility]) 1 each by Other route 4 [...] neuropathy, with long-term current use of insulin (CMS/[facility]) Sliding scale inject under the skin. [...] current use of insulin (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) 12/18/[address] [phone] Ronna Lopez FNP 11/26/2024 Orders Only [address] [phone] oRnna Lopez FNP Staph infection (Primary Dx) 11/22/2024 12:40 PM EDT Office Visit [address] [phone] Ronna Lopez FNP Seborrhea capitis (Primary Dx); Closed fracture of proximal end of right humerus with routine healing, unspecified fracture morphology, subsequent encounter; Localized swelling on right hand 11/22/[address] [phone] Ronna Lopez FNP 11/15/2024 1:40 PM EDT Office Visit [address] [phone] Ronna Lopez FNP Closed fracture of proximal end of right humerus with routine healing, unspecified fracture morphology, subsequent encounter (Primary Dx) 11/12/2024 Patient Outreach [facility] [address] [facility] [address] [place] [address] Stephanie English LPN Transition Of Care (Tcm) (LEXY, discharged from snf 11/11/2024) 11/08/2024 Population Health Risk Score [facility] () Department [address] [place] [phone] Provider, Population Health Generic 11/07/[address] [phone] Ronna Lopez FNP Care Coordination (I spoke to patient regarding Dexcom follow up. Patient reports he fractured her humerus and is in a rehab center. I advised she can call us when she gets back home to follow up with Felicia.) 10/02/[address] [phone] Ronna Lopez FNP 10/02/[address] [phone] Ynes Cherry FNP Type 2 diabetes mellitus with diabetic neuropathy, with long-term current use of insulin ([facility]); Hyperlipidemia, unspecified hyperlipidemia type 09/30/[address] [place] [address] Ronna Lopez FNP Primary hypertension 09/29/[address] [phone] Ynes Cherry FNP Primary hypertension [...] 03/25/2025 10:00 AM EDT Clinical Support [address] [phone] Felicia Mcdermott, RN [address] [place] [phone] Health Maintenance Due Date Last Done Comments [...] current use of insulin ([facility]/HCC) LIPID PANEL WITH REFLEX TO DIRECT LDL Routine 09/17/2024 10:21 AM EST Type 2 diabetes mellitus with diabetic neuropathy, with long-term current use of insulin (CMS/HCC) ALBUMIN, RANDOM URINE W/CREATININE Routine 05/22/2024 11:41 AM EDT Diabetes mellitus without complication ([facility]/HCC) BI MAMMOGRAM SCREENING TOMOSYNTHESIS BILATERAL Routine 01/05/2024 [...] PM EDT) Culture, Aerobic Bacteria SEE NOTE(A) [facility] Comment: ??CULTURE, AEROBIC BACTERIA ?Micro Number: ?[id number] ??Test Status: ? Final ??Specimen Source: ?? [...] EDT FASTING:UNKNOWN FASTING: UNKNOWN us Ronna Lopez [facility] MICROBIOLOGY - GENERAL ORDER PHUONG Final Result [facility] [address] [facility], [facility], [place] [address] [facility] [place] [facility] [address] [place] [address] * (ABNORMAL) Lipid Panel with Reflex to Direct LDL (09/17/2024 10:21 AM EST) [facility] Signature Cholesterol, Total 119 <200 mg/dL [facility] [place] [facility] HDL Cholesterol 38(L) > OR = 50 mg/dL [facility] [place] [facility] Triglycerides 263(H) <150 mg/dL [facility] [place] [facility] Comment: If a non-fasting specimen was collected, consider repeat triglyceride testing on a fasting specimen if clinically indicated. Chema et al. J. of Clin. Lipidol. 2015;9:129-169. LDL Cholesterol 50 mg/dL [employer] [place] [facility] Comment: Reference range: <100 Desirable range <100 mg/dL for primary prevention; ?? <70 mg/dL for patients with CHD or diabetic patients with > or = 2 CHD risk factors. LDL-C is now calculated using the Shahram-Elder calculation, which is a validated novel method providing better accuracy than the Friedewald equation in the estimation of LDL-C. Shahram SS et al. ARIANE. 2013;310(19): 7286-1309 (http://education.[employer]/faq/PGQ835) Chol/HDLC Ratio 3.1 <5.0 (calc) [facility] [place] [facility] Non-HDL Cholesterol 81 <130 mg/dL [facility] [place] [facility] Comment: For patients with diabetes plus 1 major ASCVD risk factor, treating to a non-HDL-C goal of <100 mg/dL (LDL-C of <70 mg/dL) is considered a therapeutic option. Blood 09/17/2024 10:2 1 AM EST 09/17/2024 10:22 AM EST Narrative [facility] - 09/17/2024 9:57 PM EST FASTING:NO FASTING: NO Ronna Lopez [facility] BLOOD ORDERABLES Final Resul t Performing Organization Address [facility] de Phone Number [address], [place] [address] [facility] [place] [employer] [address] [place] [phone] * (ABNORMAL) Hemoglobin A1c with Calculated Mean Plasma Glucose (MPG) (09/17/2024 10:21 AM EST) Hemoglobin A1c 5.8(H) <5.7 % of total Hgb [facility] Comment: For someone without known diabetes, a [...] children. Mean Plasma Glucose 129 mg/dL (calc) [facility] 09/17/2024 10:2 1 AM EST 09/17/2024 10:22 AM EST Narrative [facility] - 09/17/2024 9:57 PM EST FASTING:NO FASTING: NO Ronna Lopez [facility] BLOOD ORDERABLES Final Resul t Performing Organization Address [facility] Co de Phone Number ROBY [address] [place] [address], [facility] [address] [facility] [place] [employer] [address] [place] [phone] * Albumin, Random Urine W/Creatinine (05/22/2024 11:41 AM EDT) Creatinine, Random Urine 91 20 - 275 mg/dL [facility] Albumin, Urine 0.9 See Note: mg/dL [facility] Comment: Reference Range: Reference Range Not established Albumin/Creatinin e Ratio, Random Urine 10 <30 mg/g creat [facility] [place] [facility] Comment: The ADA defines abnormalities in [...] PM EDT FASTING:NO FASTING: NO Ynes Cherry [facility] URINE ORDERABLES Final Res ult [facility] [address] [place] [address], [place] [address] [facility] [place] [facility] [address] [place] [address] * BI Mammogram Screening Tomosynthesis Bilateral (01/05/2024 [...] (Benign) Lay letter mailed to patient WSN: [id number] Ordering Physician: Ynes Cherry Dictated By: ?Juwan Romano MD Dictated Date/Time: ?01/05/24 4:58 pm Reviewed By: ?Juwan Romano MD Signed By: ? Juwan Romano MD Signed Date/Time: ? 01/05/24 4:58 pm Transcribed By: ? CSB Aircraft Design Engineer Date/Time: ? 01/05/24 4:54 pm Birads: Procedure [...] (Benign) Lay letter mailed to patient WSN: [id number] Ordering Physician: Ynes Cherry Dictated By: Juwan Romano MD Dictated Date/Time: 01/05/24 4:58 pm Reviewed By: Juwan Romano MD Signed By: Juwan Romano MD Signed Date/Time: 01/05/24 4:58 pm Transcribed By: CSB Aircraft Design Engineer Date/Time: 01/05/24 4:54 pm Birads: Result [facility] Ynes GALEANA IMG BI PROCEDURES Final Result * Diabetes Eye Exam (06/13/2023) Eye Exam Normal Normal Comment:REPEAT EYE EXAMIN 1 MONTH Result [facility] Historical Provider HEALTH MAINTENANCE Final Result * Occult Blood, Fecal, Immunoassay (04/04/2023 9:25 AM EDT) Fecal Occult Blood, Immunochemical (FIT) NEGATIVE (NEG) [facility] Comment: Testing performed or reported by [facility], a Service of [facility], [address] [place] [address] King Hamm MD, Metropolitan Editor [facility]# [id number] 04/04/2023 9:25 AM EDT 04/10/2023 9:31 AM EDT Result [facility] Ynes GALEANA LAB BODY FLUIDS AND STOOLS ORD ERABLES Final Result [facility] [address] [place] [address] * Colonoscopy (04/29/2022) Colonoscopy FIT NEGATIVE Result [facility] Historical Tiff YUN HEALTH MAINTENANCE Final Result * Hepatitis C Antibody (02/11/2019) Hepatitis C Antibody Nonreactive Blood Result [facility] Historical Tiff YUN HEALTH MAINTENANCE Final Result from Last 3 Months or Most Recently Relevant to Health Maintenance Insurance [facility] STANDARD MEDICARE * Guarantor: Matilde Ferrer Account Type Relation to Patient Date of Phone Billing Address Dental Self Care Teams Composition Roll Maker And Cutter Relationship Specialty Start Date End Date Ronna Lopez FNP [address] [place] [address] PCP - General Family Medicine 09/02/24 Felicia Mcdermott, BETSY [address] [place] [address] Fire Fighter [employer] 05/24/23 Reina Shen [address] [place] [address] [facility] 08/30/23
--- OUTSIDE RECORDS SUMMARY | 2024-12-25 09:58 | XMS_ITS | Encounter Summary ---
Author Organization [employer] Address [address] [facility] 7t [place] [address] Care Team Providers Care Firmware Architect Name Role Phone Felicia Mcdermott RN Unavailable Reina Shen Unavailable Ronna Lopez Primary Care Provider [phone] Reason for Visit * Reason Onset Date [...] Contact Info) Description 11/07/[address] [facility] [address] [place] [address] Ronna Lopez FNP [address] [place], [place] [phone] Care Coordination (I spoke to patient regarding [...] 03/25/2025 10:00 AM EDT Clinical Support [facility] [address] [place] [phone] Felicia Mcdermott, RN [address] [place] [phone] documented as of this encounter Visit Diagnoses Not on filedocumented in this encounter Additional Health Concerns Assessment Noted Time PHQ-9 Depression Total Score: 4 02/03/20 23 9:35 AM EDT documented as of this encounter Care Teams Firmware Architect Relationship Specialty Start Date End Date Ronna Lopez FNP [address] [place] [address] PCP - General Family Medicine 09/02/24 Felicia Mcdermott, RN [address] [place] [address] Pets And Pet Supplies Salesperson 05/24/23 Reina Shen [address] [place] [address] [facility] 08/30/23 documented as of this encounter
--- OUTSIDE RECORDS SUMMARY | 2024-12-25 09:58 | XMS_ITS | Encounter Summary ---
Author Organization [employer] Address [address] [facility] 7t [place] [address] Care Team Providers Care Nurse Educator Name Role Phone Ynes Cherry Primary Care Provider [phone] Felicia Mcdermott RN Unavailable Reina Shen Unavailable Ronna Lopez HOST AND HOSTESS Primary Care Provider [phone] Encounter Details Date Type Department Care Team (Late st Contact Info) Description 02/06/2023 Telephone [facility] [address] [place] [address] Ynes Cherry FNP [address] [place] [address] [phone] Social History Tobacco Use Types Packs/Day Years [...] Description 03/25/2025 10:00 AM EDT Clinical Support [address] [phone] Felicia Mcdermott, RN [address] [place] [phone] documented as of this encounter Visit Diagnoses Not on filedocumented in this encounter Additional Health Concerns Assessment Noted Time PHQ-9 Depression Total Score: 4 02/03/20 9:35 AM EDT documented as of this encounter Care Teams Nurse Educator Relationship Specialty Start Date End Date Ynes Cherry FNP PCP - General Family Medicine 02/02/23 09/01/24 Ronna Lopez FNP [address] [place] [address] PCP - General Family Medicine 09/02/24 Felicia Mcdermott, RN [address] [place] [address] Air Conditioning Supervisor 05/24/23 Reina Shen [address] [place] [address] [facility] 08/30/23 documented as of this encounter
== END 2024-12-25 10:23 | disposition home or self-care (01) ==
LOC: HO.HOS 09:21
DX: S42.301A Unspecified fracture of shaft of humerus, right arm, initial encounter for closed fracture (principal)
CPT/HCPCS: 99024

== ENCOUNTER → 2024-12-25 09:24 | Outpatient (BNV) | payer MEDICARE, MEDICAID, SELFPAY | PROVIDERS: Visit Provider Specialist | DX: S42.301A Unspecified fracture of shaft of humerus, right arm, initial encounter for closed fracture (principal) | CPT/HCPCS: 73060 ==

== ENCOUNTER 2025-01-24 09:46 | Outpatient (REF) | payer MEDICARE, MEDICAID, SELFPAY ==
--- NOTE | ~2025-01-24 | XR_ITS ---
EXAMINATION: XR HUMERUS RIGHT HISTORY: S42.301A - Unspecified fracture of shaft of humerus, right arm, initial ... COMPARISON: Comparison is made with the prior examination dated 12/25/2024. FINDINGS: AP and lateral views of the right humerus are submitted. Osseous mineralization is normal. The patient is again noted to be status post internal fixation of a fracture of the midhumerus with an intramedullary kiel. The fracture line remains visible, although there is slightly greater callus formation seen consistent with healing. The visualized shoulder and elbow joint spaces are preserved. The soft tissues are unremarkable. XR/XR humerus RT IMPRESSION: Healing internally fixed fracture of the midshaft of the right humerus. Electronically signed by: Camilo Grijalva MD 01/27/2025 10:58 AM EDT
--- OUTSIDE RECORDS SUMMARY | 2025-01-24 10:10 | XMS_ITS | Encounter Summary ---
Author Organization [employer] Address [address] [facility] 7t [place] [address] Care Team Providers Care Holistic Health Practitioner Name Role Phone CherryYnes [facility] Primary Care Provider [phone] Felicia Mcdermott RN Unavailable Reina Shen Unavailable Ronna Lopez [facility] Primary Care Provider [phone] Encounter Details Date Type Department Care Team (Late st Contact Info) Description 01/10/2024 Orders Only [facility] Information Management [address] [place] [address] Provider, Not In System Social History Tobacco [...] Description 03/25/2025 10:00 AM EDT Clinical Support [facility] [address] [place] [phone] Felicia Mcdermott, RN [address] [place] [address] documented as of this encounter Procedures Procedure [...] as of this encounter Care Teams Holistic Health Practitioner Relationship Specialty Start Date End Date Ynes Cherry FNP PCP - General Family Medicine 02/02/23 09/01/24 Ronna Lopez FNP [address] [place] [address] PCP - General Family Medicine 09/02/24 Felicia Mcdermott RN [address] [place] [address] Tipping Machine Operator Automatic 05/24/23 Reina Shen [address] [place] [address] [facility] 08/30/23 documented as of this encounter
== END 2025-01-24 09:47 | disposition home or self-care (01) ==
LOC: HO.HOSX 09:46
DX: S42.301A Unspecified fracture of shaft of humerus, right arm, initial encounter for closed fracture (principal); X58.XXXD Exposure to other specified factors, subsequent encounter
CPT/HCPCS: 73060; 99212

== ENCOUNTER 2025-01-24 10:10 | Outpatient (AMB) | payer MEDICARE, MEDICAID, SELFPAY ==
--- NOTE | 2025-01-24 10:25 | MHC.OFFVIS ---
Vital Signs 01/24/25 10:26 Height 5 ft 8 in Weight 176 lb BMI 26.8 Intake Visit Reasons: PO-Rt Humerus IMN 12/10/24 NE Intake Note: Matilde is a 63 year old right hand dominant female who presents today for a post operative visit s/p RT humerus IMN, DOS 12/10/24. At her last visit outpatient physical therapy was ordered and she was instructed to remain out of her sling unless she is in crowded areas or at risk for fall. XR updated today in office. States she has not started P.T but is doing O.T. States she is still limited ROM, denies numbness or tingling in fingers. Allergies No Known Allergies Allergy (Verified 01/24/25 11:10) [facility] Medical History (Updated 12/14/24 @ 00:01 by Hugh Archuleta) Diabetes type 2 Hyperlipidemia HTN (hypertension) Anxiety Diabetes High cholesterol GERD (gastroesophageal reflux disease) Surgical History H/O cervical spine surgery Hx of hysterectomy Social History Household Members: None Housing: Apartment Alcohol intake: never Patient Tobacco Use Status: Never used Tobacco Current occupational status: retired and disabled Current occupation: right hand dominant Physical Exam Vital Signs: BMI result Body Mass Index 26.8 Assessment & Plan Assessment & Plan (1) Fracture of humeral shaft, right, closed: Code(s): S42.301A - Unspecified fracture of shaft of humerus, right arm, initial encounter for closed fracture Category: Medical Qualifiers: Encounter type: subsequent encounter Fracture morphology: other fracture Plan History of Present Illness The patient is a 64-year-old female presenting with follow-up for right humerus nail fixation. Following her initial injury and subsequent nail placement for a right humerus fracture, she reports soreness in the right arm with restricted capability to lift it. The stitches related to the surgical intervention have been removed; however, she is experiencing issues with a small wound that is yet to completely heal. Despite these challenges, therapeutic interventions have been put in place, with the patient attending occupational therapy weekly and scheduled to begin physical therapy sessions soon. Her concerns include post-operative soreness and a noticeable dent at the site, though these are expected to improve with time. Examination of the site shows no infection, and radiographic images confirm good progress in bony healing. Pain at the fracture location is minimal upon examination, with occasional mild discomfort. Review of Systems - Musculoskeletal: Reports soreness in the right arm, limited range of motion. - Skin: Reports a small wound at the surgical site that has not fully closed. Systems reviewed and are negative except as per HPI and below Physical Exam - Musculoskeletal- Right arm shows mild soreness at the fracture site with limited range of motion. Able to extend to approximately 10 degrees and flex to approximately 90 degrees, reports discomfort beyond this.; surgical wound present but covered with soft tissue. Results - Imaging: Radiographic examination demonstrates excellent bony healing of the right humerus. Procedure - Dressing: Consent obtained for applying a light dressing to the non-fully healed wound site. The area was cleaned and covered appropriately for ongoing dressing changes to promote healing. Plan The patient is following up for right humerus nail fixation with promising healing progress noted on radiographs. To ensure optimal recovery, the patient will continue daily dressing changes to aid in the closure of the small surgical wound and attend scheduled occupational and physical therapy sessions to improve arm function. A follow-up visit is planned in a week to reassess the wound healing and ensure treatment efficacy as evidenced by enhanced bony healing and reduced soreness. Patient was informed and verbally consented to the use of an ambient scribe for clinic note documentation during this visit. Discussion Notes I discussed the satisfactory healing progress of the right humerus fracture with the patient, supported by the latest radiographic results. We reviewed the necessity of maintaining daily dressing changes to allow the non-fully closed wound site to heal effectively. The importance of continuing with both occupational and physical therapy was emphasized for improved functional outcome and range of motion recovery in the right arm. These measures, tailored to the patient's current condition, were agreed upon. The patient understands the need to follow-up in a week to monitor wound healing and further assess progress. Patient Instructions - Change the dressing on the right arm daily as instructed. - Continue with occupational therapy sessions weekly. - Begin physical therapy on the scheduled date. - Monitor the surgical site for signs of infection such as increased redness, swelling, or discharge, and seek medical attention if these occur. - Attend the follow-up appointment in one week for re-evaluation. Orders: Orders XR humerus RT Today S42.301A - Unspecified fracture of shaft of humerus, right arm, initial encounter for closed fracture Coding Level of Care Code Global (44573) Diagnoses Fracture of humeral shaft, right, closed S42.301A Encounter type: subsequent encounter Fracture morphology: other fracture
[2025-01-24 10:26] VITALS: BMI 26.8
== END 2025-01-24 11:06 | disposition home or self-care (01) ==
LOC: HO.HOS 10:11
DX: S42.301A Unspecified fracture of shaft of humerus, right arm, initial encounter for closed fracture (principal)
CPT/HCPCS: 99024

== ENCOUNTER → 2025-01-24 10:16 | Outpatient (BNV) | payer MEDICARE, MEDICAID, SELFPAY | PROVIDERS: Visit Provider Radiology Diagnostic Radiology | DX: S42.301A Unspecified fracture of shaft of humerus, right arm, initial encounter for closed fracture (principal) | CPT/HCPCS: 73060 ==

== ENCOUNTER 2025-01-29 12:50 | Outpatient (AMB) | payer MEDICARE, MEDICAID, SELFPAY ==
--- NOTE | 2025-01-29 12:54 | A.OFFVIS_ITS ---
Intake Visit Reasons: PO-Rt Humerus IMN 12/10/24 NE-wound check Intake Note: Matilde is a 63 year old right female who presents today for a post operative visit s/p right humerus IMN, DOS: 12/10/24 w/ Dr Cortes Wolf. Patient reports she has intermittent pain after she does some home exercises. Expresses she can not lift her arm above head. She states she is starting physical therapy next Monday02/07/25. Allergies No Known Allergies Allergy (Verified 01/29/25 13:01) HPI HPI PO-Rt Humerus IMN 12/10/24 NE-wound check: Details: Matilde is a 63 year old right female who presents today for a post operative visit s/p right humerus IMN, DOS: 12/10/24 w/ Dr Cortes Wolf. Patient reports she has intermittent pain after she does some home exercises. Expresses she can not lift her arm above head. She states she is starting physical therapy next Monday02/07/25. [facility] Medical History (Updated 12/14/24 @ 00:01 by Hugh Archuleta) Diabetes type 2 Hyperlipidemia HTN (hypertension) Anxiety Diabetes High cholesterol GERD (gastroesophageal reflux disease) Surgical History H/O cervical spine surgery Hx of hysterectomy Social History Household Members: None Housing: Apartment Alcohol intake: never Patient Tobacco Use Status: Never used Tobacco Current occupational status: retired and disabled Current occupation: right hand dominant Assessment & Plan Assessment & Plan (1) Fracture of humeral shaft, right, closed: Code(s): S42.301A - Unspecified fracture of shaft of humerus, right arm, initial encounter for closed fracture Category: Medical Qualifiers: Encounter type: subsequent encounter Fracture morphology: other fracture Plan History of Present Illness The patient is a 64-year-old female presenting with a postoperative wound check. Following her recent surgery, a previously slightly open wound appears to have healed effectively. She underwent a significant surgical procedure. As part of her postoperative care, she is advised against lifting objects for three months and reports gradual improvement and lingering soreness. The patient is continuing her care routine by washing incisions with soap and water. Review of Systems - Integumentary: Reports wound healing improvement. - Musculoskeletal: Denies additional issues, reports slight post-surgical soreness. - Neurological: Denies any neurological symptoms, reports feeling better each day. Systems reviewed and are negative except as per HPI and below Physical Exam - Integumentary- Well-healed wound site with no dressing required, no signs of infection observed. Results - No new diagnostic results were discussed during the visit. Procedure Plan The wound check showed good closure of the previously open area, reflecting positive healing progress. For optimal recovery, it is vital that the patient adhere to physical activity restrictions, establishing a follow-up visit in three to four weeks for further evaluation. X-rays will be conducted at the next appointment to monitor bone and alignment status. Continued avoidance of lifting is crucial for ensuring proper healing. Patient was informed and verbally consented to the use of an ambient scribe for clinic note documentation during this visit. Discussion Notes I discussed with the patient the satisfactory healing of her surgical wound, noting that no dressing is needed and she should continue washing it with soap and water. We reviewed the necessity of maintaining lifting restrictions for three months following her surgery. I also explained that the soreness she is experiencing is normal and anticipates improvement over time. An appointment will be scheduled within the next three to four weeks to monitor healing progress, including x-rays to assess the bone and alignment. The patient was encouraged to contact me with any questions or concerns before the next [facility] eduled visit. Patient Instructions - Avoid lifting any objects for three months post-surgery. - Clean the incision areas gently with soap and water during routine hygiene. - Continue walking and other movements without lifting. - Monitor for any changes or concerns related to the wound. - Contact me with any questions before the next appointment. - Schedule a follow-up appointment in three to four weeks. Coding Level of Care Code Global (07585) Diagnoses Fracture of humeral shaft, right, closed S42.301A Encounter type: subsequent encounter Fracture morphology: other fracture
--- OUTSIDE RECORDS SUMMARY | 2025-01-29 13:15 | XMS_ITS | Encounter Summary ---
Author Organization [employer] Address [address] [facility] 7t [place] [address] Care Team Providers Care School Adjustment Counselor Name Role Phone Ynes Cherry [facility] Primary Care Provider [phone] Felicia Mcdermott RN Unavailable Reina Shen Unavailable Ronna Lopez [facility] Primary Care Provider [phone] DecemberDenny [facility] Primary Care Provider [phone] Encounter Details Date Type Department Care Team (Late st Contact Info) Description 01/10/[address] [facility] Information Management [address] [place] [address] Provider, Not In System Social [...] the past 12 months, has t he [employer] gas, oil or water company threatened to [...] Care Team (Late st Contact Info) Description 02/07/2025 12:40 PM EDT Office Visit [address] [phone] Ronna Lopez FNP [address] [place] [address] 03/25/2025 10:00 AM EDT Clinical Support [address] [phone] Felicia Mcdermott, BETSY [address] [place] [address] documented as of this encounter Procedures Procedure [...] documented as of this encounter Care Teams School Adjustment Counselor Relationship Specialty Start Date End Date Ynes Cherry FNP PCP - General Family Medicine 02/02/23 09/01/24 Ronna Lopez FNP [address] [place] [address] PCP - General Family Medicine 09/02/24 01/26/25DecemberDenny AGNP [address] [place] [address] PCP - General Family Medicine 01/27/25 Felicia Mcdermott, RN [address] [place] [address] Food Selector 05/24/23 Reina Shen [address] [place] [address] [facility] 08/30/23 documented as of this encounter
== END 2025-01-29 13:17 | disposition home or self-care (01) ==
LOC: HO.HOS 12:51
DX: S42.301A Unspecified fracture of shaft of humerus, right arm, initial encounter for closed fracture (principal)
CPT/HCPCS: 99024

== ENCOUNTER → 2025-01-29 12:50 | Outpatient (BNVA) | payer MEDICARE, MEDICAID, SELFPAY | DX: S42.301D Unspecified fracture of shaft of humerus, right arm, subsequent encounter for fracture with routine healing (principal); X58.XXXD Exposure to other specified factors, subsequent encounter; Z98.890 Other specified postprocedural states | CPT/HCPCS: 99212 ==

== ENCOUNTER 2025-02-26 12:45 | Outpatient (AMB) | payer MEDICARE, MEDICAID, SELFPAY ==
--- NOTE | 2025-02-26 13:06 | A.OFFVIS_ITS ---
Vital Signs 02/26/25 13:22 Handedness Right Intake Visit Reasons: PO-Rt Humerus IMN 12/10/24 NE-w/xrays Intake Note: Matilde is a 63 year old right female who presents today for a post operative visit s/p right humerus IMN, DOS: 12/10/24 w/ Dr Cortes Wolf. Patient reports some intermittent pain with movement or her right arm and at rest. She expresses she is unable cassie ift her arm above head or behind her back. Denies the use of the right arm and any lifting She expresses she has completed 3 physical therapy sessions so far.. Allergies No Known Allergies Allergy (Verified 01/29/25 13:01) HPI HPI PO-Rt Humerus IMN 12/10/24 NE-w/xrays: Details: Matilde is a 63 year old right female who presents today for a post operative visit s/p right humerus IMN, DOS: 12/10/24 w/ Dr Cortes Wolf. Patient reports some intermittent pain with movement or her right arm and at rest. She expresses she is unable cassie ift her arm above head or behind her back. Denies the use of the right arm and any lifting She expresses she has completed 3 physical therapy sessions so far. [facility] Medical History Diabetes type 2 Hyperlipidemia HTN (hypertension) Anxiety Diabetes High cholesterol GERD (gastroesophageal reflux disease) Surgical History H/O cervical spine surgery Hx of hysterectomy Social History Household Members: None Housing: Apartment Alcohol intake: never Patient Tobacco Use Status: Never used Tobacco Current occupational status: retired and disabled Current occupation: right hand dominant Review of Systems Const All systems reviewed & are unremarkable except as noted in HPI and below Physical Exam Extrem Other: On inspection, there is no visible deformity of the right arm No edema, erythema, ecchymosis noted Well approximated and well healing incision sites noted over the humerus of the right arm No evidence of infection Patient reports no tenderness to palpation of the right proximal arm Patient is able to flex the right elbow to approximately 140 degrees and extend to approximately 5 degrees without difficulty Distal sensation intact Capillary refill brisk Results Reviewed Results Reviewed: X-rays obtained in the office today and independently reviewed by me, Federico Dong PA-C, demonstrate surgically reduced fracture of the right humeral shaft with all orthopedic hardware in place and in satisfactory clinical alignment and with evidence of interval bony healing. Assessment & Plan Assessment & Plan (1) Fracture of humeral shaft, right, closed: Code(s): S42.301A - Unspecified fracture of shaft of humerus, right arm, initial encounter for closed fracture Category: Medical Qualifiers: Encounter type: subsequent encounter Fracture morphology: other fracture Plan 1. Status post right humerus ORIF DOS 12/10/2024 Patient appears to be recovering well postoperatively Patient is educated about the typical recovery course Patient is educated that she can begin some light weight-bearing with a 2 lb weight limit in the right hand Should continue with PT to improve range of motion and begin very gentle strengthening with 2 lb weight limit Patient is amenable to this plan Follow-up in 4-6 weeks for reassessment, sooner with any acute concerns Orders: Orders XR humerus RT 02/26/25 S42.301A - Unspecified fracture of shaft of humerus, right arm, initial encounter for closed fracture Coding Level of Care Code Global (36757) Diagnoses Fracture of humeral shaft, right, closed S42.301A Encounter type: subsequent encounter Fracture morphology: other fracture
--- OUTSIDE RECORDS SUMMARY | 2025-02-26 13:14 | XMS_ITS | Encounter Summary ---
Author Organization [employer] Address [address] [facility] 7t [place] [address] Care Team Providers Care Oil Rig Roughneck Name Role Phone Ynse Cherry [facility] Primary Care Provider [phone] Felicia Mcdermott RN Unavailable Reina Shen Unavailable Ronna Lopez [facility] Primary Care Provider [phone] DecemberDenny [facility] Primary Care Provider [phone] Encounter Details Date Type Department Care Team (Late st Contact Info) Description 01/10/2024 Orders Only [facility] Information Management [address] [place] [address] Provider, Not In System Social [...] the past 12 months, has t he [employer], gas, oil or water company threatened to [...] Description 03/25/2025 10:00 AM EDT Clinical Support [facility] [address] [place] [phone] Felicia Mcdermott RN [address] [place] [address] 08/22/2025 12:40 PM EST Office Visit [address] [phone] Denny Waldron AGNP [address] [place] [address] documented as of this encounter Procedures Procedure [...] documented as of this encounter Care Teams Oil Rig Roughneck Relationship Specialty Start Date End Date Ynes Cherry FNP PCP - General Family Medicine 02/02/23 09/01/24 Ronna Lopez FNP [address] [place] [address] PCP - General Family Medicine 09/02/24 01/26/25DecemberDenny AGNP [address] [place] [address] PCP - General Family Medicine 01/27/25 Felicia Mcdermott, RN [address] [place] [address] Corporate Meeting Planner 05/24/23 Reina Shen [address] [place] [address] [facility] 08/30/23 documented as of this encounter
== END 2025-02-26 13:38 | disposition home or self-care (01) ==
LOC: HO.HOS 12:46
DX: S42.301A Unspecified fracture of shaft of humerus, right arm, initial encounter for closed fracture (principal)
CPT/HCPCS: 99024

== ENCOUNTER 2025-02-26 12:45 | Outpatient (REF) | payer MEDICARE, MEDICAID, SELFPAY ==
--- NOTE | ~2025-02-26 | XR_ITS ---
EXAMINATION: XR HUMERUS, RIGHT CLINICAL INFORMATION: S42.301A - Unspecified fracture of shaft of humerus, right arm, follow-up COMPARISON: January 24 and October 15, 2024 TECHNIQUE: AP and lateral views of the right humerus. FINDINGS: There is an intramedullary with 2 distal and proximal locking screws. Hardware is intact without change. Intramedullary nail traverses the middle diaphysis fracture through the humerus with increased density of periosteal and cortical new bone. XR/XR humerus RT IMPRESSION: Continued healing of a middle diaphysis fracture of the right humerus Electronically signed by: Rikki Pritchett MD 02/26/2025 04:18 PM EDT
== END 2025-02-26 12:46 | disposition home or self-care (01) ==
LOC: HO.HOSX 12:45
DX: S42.301D Unspecified fracture of shaft of humerus, right arm, subsequent encounter for fracture with routine healing (principal); Z96.611 Presence of right artificial shoulder joint
CPT/HCPCS: 73060; 99212

== ENCOUNTER → 2025-02-26 13:12 | Outpatient (BNV) | payer MEDICARE, MEDICAID, SELFPAY | PROVIDERS: Visit Provider Radiology Diagnostic Radiology | DX: S42.301A Unspecified fracture of shaft of humerus, right arm, initial encounter for closed fracture (principal) | CPT/HCPCS: 73060 ==

== ENCOUNTER 2025-04-09 10:44 | Outpatient (REF) | payer MEDICARE, MEDICAID, SELFPAY ==
--- NOTE | ~2025-04-09 | XR_ITS ---
EXAMINATION: XR HUMERUS RIGHT HISTORY: S42.301A - Unspecified fracture of shaft of humerus, right arm, initial ... COMPARISON: Comparison is made with the prior examination dated 02/26/2025. FINDINGS: AP and lateral views of the right humerus are submitted. Osseous mineralization is normal. The patient is again noted to be status post internal fixation of a fracture of the midshaft with an intramedullary kiel. Internal callus formation at the fracture site is not significantly changed. The fracture line remains visible. The visualized shoulder and elbow joint spaces are preserved. The soft tissues are unremarkable. XR/XR humerus RT IMPRESSION: Internal fixation of a fracture of the midshaft of the right humerus without significant change. Electronically signed by: Camilo Grijalva MD 04/09/2025 12:54 PM EDT
--- OUTSIDE RECORDS SUMMARY | 2025-04-09 11:37 | XMS_ITS | Encounter Summary ---
Author Organization [employer] Address [address] [facility] 7t [place] [address] Care Team Providers Care Ferris Wheel Attendant Name Role Phone Jo Ann Ynes [facility] Primary Care Provider [phone] Felicia Mcdermott RN Unavailable Ronna Lopez [facility] Primary Care Provider [phone] Denny Waldron [facility] Primary Care Provider Ronna Lopez [facility] Primary Care Provider [phone] Dilan Witt OD Unavailable Encounter Details Date Type Department Care Team (Late st Contact Info) Description 01/10/2024 Orders Only [facility] Information Management [address] [place] [address] Provider, Not In System Social [...] the past 12 months, has t he [employer], gas, oil or water company threatened to [...] Care Team (Late st Contact Info) Description 05/02/2025 1:00 PM EDT Immunization [address] [phone] 08/22/2025 12:40 PM EST Office Visit [address] [phone] Denny Waldron AGNP [address] [place] [address] 11/11/2025 11:00 AM EDT Clinical Support [facility] [address] [place] [phone] Felicia Mcdermott, RN [address] [place] [address] documented as of this encounter Procedures Procedure [...] documented as of this encounter Care Teams Ferris Wheel Attendant Relationship Specialty Start Date End Date Ynes Cherry FNP PCP - General Family Medicine 02/02/23 09/01/24 Ronna Lopez FNP [address] [place] [address] PCP - General Family Medicine 09/02/24 01/26/25 Denny Waldron AGNP [address] [place] [address] PCP - General Family Medicine 01/27/25 03/24/25 Ronna Lopez FNP [address] [place] [address] PCP - General Family Medicine 03/25/25 Felicia Mcdermott RN [address] [place] [address] Rehabilitation Specialist 05/24/23 Dilan Witt OD [address] [place] [address] Optometry 04/01/25 Cailin Radha Psychiatrist 04/01/25 documented as of this encounter
== END 2025-04-09 10:45 | disposition home or self-care (01) ==
LOC: HO.HOSX 10:44
DX: S42.301D Unspecified fracture of shaft of humerus, right arm, subsequent encounter for fracture with routine healing (principal); X58.XXXD Exposure to other specified factors, subsequent encounter
CPT/HCPCS: 73060; 99212

== ENCOUNTER 2025-04-09 12:25 | Outpatient (AMB) | payer MEDICARE, MEDICAID, SELFPAY ==
[2025-04-09 12:42] VITALS: BMI 26.8
--- NOTE | 2025-04-09 12:42 | A.OFFVIS_ITS ---
Vital Signs 04/09/25 12:42 Height 5 ft 8 in Weight 176 lb BMI 26.8 Intake Visit Reasons: OV-Rt Humerus IMN 12/10/24 NE-w/xrays Intake Note: Matilde is a 64 year old right hand dominant female who presents today post- operatively status post right humerus IMN, DOS: 12/10/[address] Wolf. At her last visit she was notified she could begin light weight-bearing with a 2 lb li dmitri. Patient was advised to continue with PT to improve range of motion and begin very gentle strengthening with 2 lb weight limit. Today patient reports she is doing better, still experiencing some discomfort. She continues taking Ibuprofen. Denies numbness, tingling. Allergies No Known Allergies Allergy (Verified 04/09/25 12:42) HPI HPI OV-Rt Humerus IMN 12/10/24 NE-w/xrays: Details: Matilde is a 64 year old right hand dominant female who presents today post-operati vely status post right humerus IMN, DOS: 12/10/[address] Wolf. At her last visit she was notified she could begin light weight-bearing with a 2 lb limit. Patient was advised to continue with PT to improve range of motion and begin very gentle strengthening with 2 lb weight limit. Today patient reports she is doing better, still experiencing some discomfort. She continues taking Ibuprofen. Denies numbness, tingling. PFSH Medical History Diabetes type 2 Hyperlipidemia HTN (hypertension) Anxiety Diabetes High cholesterol GERD (gastroesophageal reflux disease) Surgical History H/O cervical spine surgery Hx of hysterectomy Social History Household Members: None Housing: Apartment Alcohol intake: never Patient Tobacco Use Status: Never used Tobacco Current occupational status: retired and disabled Current occupation: right hand dominant Review of Systems Const All systems reviewed & are unremarkable except as noted in HPI and below Physical Exam Vital Signs: BMI result Body Mass Index 26.8 Extrem Other: On inspection, there is no visible deformity of the right arm No edema, erythema, ecchymosis noted Well approximated and well healing incision sites noted over the humerus of the right arm No evidence of infection Patient reports no tenderness to palpation of the right proximal arm Patient is able to flex the right elbow to approximately 140 degrees and extend to approximately 5 degrees without difficulty Patient is able to forward flex the right shoulder to approximately 90 degrees, is able to externally rotate to approximately 50 degrees Distal sensation intact Capillary refill brisk Results Reviewed Results Reviewed: X-rays obtained in the office today and independently reviewed by me, Federico Dong PA-C, demonstrate surgically reduced fracture of the right humeral shaft with all orthopedic hardware in place and in satisfactory clinical alignment and with evidence of interval bony healing. Assessment & Plan Assessment & Plan (1) Fracture of humeral shaft, right, closed: Code(s): S42.301A - Unspecified fracture of shaft of humerus, right arm, initial encounter for closed fracture Category: Medical Qualifiers: Encounter type: subsequent encounter Fracture morphology: other fracture Plan 1. Status post right humerus ORIF DOS 12/10/2024 Patient appears to be recovering well postoperatively Patient is educated about the typical recovery course Patient is educated that she can begin some increasing weight-bearing with a 5 lb weight limit in the right hand Should continue with PT to improve range of motion and continue gentle strengthening with 5 lb weight limit Patient is amenable to this plan Follow-up in 6 weeks for reassessment, sooner with any acute concerns Orders: Orders XR humerus RT Today S42.301A - Unspecified fracture of shaft of humerus, right arm, initial encounter for closed fracture Coding Level of Care Code Est Pt Level 3 (38027) Diagnoses Fracture of humeral shaft, right, closed S42.301A Encounter type: subsequent encounter Fracture morphology: other fracture
== END 2025-04-09 13:06 | disposition home or self-care (01) ==
LOC: HO.HOS 12:26
DX: S42.301A Unspecified fracture of shaft of humerus, right arm, initial encounter for closed fracture (principal)
CPT/HCPCS: 99213

== ENCOUNTER → 2025-04-09 12:38 | Outpatient (BNV) | payer MEDICARE, MEDICAID, SELFPAY | PROVIDERS: Visit Provider Radiology Diagnostic Radiology | DX: S42.301A Unspecified fracture of shaft of humerus, right arm, initial encounter for closed fracture (principal) | CPT/HCPCS: 73060 ==

== ENCOUNTER 2025-05-19 12:49 | Outpatient (REF) | payer MEDICARE, MEDICAID, SELFPAY ==
--- NOTE | ~2025-05-19 | XR_ITS ---
EXAMINATION: XR HUMERUS, RIGHT CLINICAL INFORMATION: S42.301A - Unspecified fracture of shaft of humerus, right arm, initial ... COMPARISON: February 26 and April 09, 2025 TECHNIQUE: AP and lateral views of the right humerus. FINDINGS: Again seen is intramedullary nail traversing the fractures of the middle third diaphysis of the humerus with 2 proximal and 2 distal interlocking screws. The second most proximal screw sits slightly proud of the cortex, unchanged. Bridging new bone formation is visible across the lateral cortex. There is moderate size callus extending across the medial aspect of the fracture. Fracture lucency extends across the humerus and the distal portion of the medial talus. There is overall increasing density of the cortex immediately adjacent to the fracture. XR/XR humerus RT IMPRESSION: Continued healing post-ORIF right mid humeral diaphysis fracture. Electronically signed by: Rikki Pritchett MD 05/19/2025 01:03 PM EDT
== END 2025-05-19 12:50 | disposition home or self-care (01) ==
LOC: HO.HOSX 12:49
DX: S42.301D Unspecified fracture of shaft of humerus, right arm, subsequent encounter for fracture with routine healing (principal); X58.XXXD Exposure to other specified factors, subsequent encounter; Z47.89 Encounter for other orthopedic aftercare
CPT/HCPCS: 73060; 99212

== ENCOUNTER 2025-05-19 12:49 | Outpatient (AMB) | payer MEDICARE, MEDICAID, SELFPAY ==
[2025-05-19 13:05] VITALS: BMI 26.8
--- NOTE | 2025-05-19 13:05 | A.OFFVIS_ITS ---
Vital Signs 05/19/25 13:05 Height 5 ft 8 in Weight 176 lb BMI 26.8 Intake Visit Reasons: OV-Rt Humerus IMN 12/10/24 NE-w/xrays Intake Note: Matilde is a 64 year old right hand dominant female who presents today post- operatively status post Right Humerus IMN, DOS: 12/10/[address] Wolf. At her last visit, she was informed she could increase to a 5 lb weight limit and to c ontinue Physical Therapy. Patient reports today she is doing great . She has been lifting greater than 5 lbs. She states Physical Therapy is planning to discharge her tomorrow. She takes Tylenol when needed. No further concerns today. Allergies No Known Allergies Allergy (Verified 05/19/25 13:05) HPI HPI OV-Rt Humerus IMN 12/10/24 NE-w/xrays: Details: Matilde is a 64 year old right hand dominant female who presents today post- operatively status post Right Humerus IMN, DOS: 12/10/[address] Wolf. At her last visit, she was informed she could increase to a 5 lb weight limit and to continue Physical Therapy. Patient reports today she is doing great . She has been lifting greater than 5 lbs. She states Physical Therapy is planning to discharge her tomorrow. She takes Tylenol when needed. No further concerns today. [facility] Medical History Diabetes type 2 Hyperlipidemia HTN (hypertension) Anxiety Diabetes High cholesterol GERD (gastroesophageal reflux disease) Surgical History H/O cervical spine surgery Hx of hysterectomy Social History Household Members: None Housing: Apartment Alcohol intake: never Patient Tobacco Use Status: Never used Tobacco Current occupational status: retired and disabled Current occupation: right hand dominant Review of Systems Const All systems reviewed & are unremarkable except as noted in HPI and below Physical Exam Vital Signs: BMI result Body Mass Index 26.8 Extrem Other: On inspection, there is no visible deformity of the right arm No edema, erythema, ecchymosis noted Well approximated and well healing incision sites noted over the humerus of the right arm No evidence of infection Patient reports no tenderness to palpation of the right proximal arm Patient is able to flex the right elbow to approximately 140 degrees and extend to approximately 5 degrees without difficulty Patient is able to forward flex the right shoulder to approximately 90 degrees, is able to externally rotate to approximately 60 degrees Distal sensation intact Capillary refill brisk Results Reviewed Results Reviewed: X-rays obtained in the office today and independently reviewed by me, Federico Dong PA-C, demonstrate surgically reduced fracture of the right humeral shaft with all orthopedic hardware in place and in satisfactory clinical alignment and with evidence of interval bony healing. Assessment & Plan Assessment & Plan (1) Fracture of humeral shaft, right, closed: Code(s): S42.301A - Unspecified fracture of shaft of humerus, right arm, initial encounter for closed fracture Category: Medical Qualifiers: Encounter type: subsequent encounter Fracture morphology: other fracture Plan 1. Status post right humerus ORIF DOS 12/10/2024 Patient appears to be recovering well postoperatively Patient is educated about the typical recovery course Patient is educated that she can begin some increasing weight-bearing with a 5 lb weight limit in the right hand Should continue with PT to improve range of motion and continue gentle strengthening with 5 lb weight limit Patient is amenable to this plan Follow-up in 2-3 months for reassessment, sooner with any acute concerns Orders: Orders XR humerus RT 05/19/25 S42.301A - Unspecified fracture of shaft of humerus, right arm, initial encounter for closed fracture Coding Level of Care Code Est Pt Level 3 (41865) Diagnoses Fracture of humeral shaft, right, closed S42.301A Encounter type: subsequent encounter Fracture morphology: other fracture
--- OUTSIDE RECORDS SUMMARY | 2025-05-19 15:15 | XMS_ITS | Encounter Summary ---
Demographics
== END 2025-05-19 13:30 | disposition home or self-care (01) ==
LOC: HO.HOS 12:50
DX: S42.301A Unspecified fracture of shaft of humerus, right arm, initial encounter for closed fracture (principal)
CPT/HCPCS: 99213

== ENCOUNTER → 2025-05-19 12:52 | Outpatient (BNV) | payer MEDICARE, MEDICAID, SELFPAY | PROVIDERS: Visit Provider Radiology Diagnostic Radiology | DX: S42.301D Unspecified fracture of shaft of humerus, right arm, subsequent encounter for fracture with routine healing (principal) | CPT/HCPCS: 73060 ==

== ENCOUNTER 2025-07-14 08:12 | Outpatient (REF) | payer MEDICARE, MEDICAID, SELFPAY ==
--- NOTE | ~2025-07-14 | XR_ITS ---
EXAMINATION: XR HUMERUS, RIGHT CLINICAL INFORMATION: S42.301A - Unspecified fracture of shaft of humerus, right arm, initial ... COMPARISON: May 19, 2025. TECHNIQUE: AP and lateral views of the right humerus. FINDINGS: Status post open reduction internal fixation with a long intramedullary kiel throughout the right humerus and anchor with screws in the proximal distal aspect. There is a persistent 3.3 mm gap at the fracture site. There is a osseous bridge along the ulnar aspect of the fracture site. No gross loosening.. 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 Electronically signed by: Zafar Bradshaw MD 07/14/2025 02:08 PM [facility]
== END 2025-07-14 08:13 | disposition home or self-care (01) ==
LOC: HO.HOSX 08:12
DX: S42.301D Unspecified fracture of shaft of humerus, right arm, subsequent encounter for fracture with routine healing (principal)
CPT/HCPCS: 73060

== ENCOUNTER 2025-07-14 13:34 | Outpatient (AMB) | payer MEDICARE, MEDICAID, SELFPAY ==
--- NOTE | 2025-07-14 14:03 | MHC.OFFVIS ---
Vital Signs 07/14/25 14:05 Height 5 ft 8 in Weight 176 lb BMI 26.8 Intake Visit Reasons: OV-Rt Humerus IMN 12/10/24 NE-w/xrays Intake Note: Matilde is a 64 year old right hand dominant female who presents today for a Post-operative Visit status post Right Humerus IMN, DOS: 12/10/[address] Wolf. Patient was last seen on 05/19/25. At that time, she was educated she could begin some increasing weight-bearing with a 5 lb weight limit in the right hand. She was advised to continue with PT to improve ROM and strengthening. Today, patient reports she is doing very well. She denies any questions or concerns. Allergies No Known Allergies Allergy (Verified 07/14/25 14:07) HPI HPI OV-Rt Humerus IMN 12/10/24 NE-w/xrays: Details: Matilde is a 64 year old right hand dominant female who presents today for a Post-operative Visit status post Right Humerus IMN, DOS: 12/10/[address] Wolf. Patient was last seen on 05/19/25. At that time, she was educated she could begin some increasing weight-bearing with a 5 lb weight limit in the right hand. She was advised to continue with PT to improve ROM and strengthening. Today, patient reports she is doing very well. She denies any questions or concerns. Patient reports no ongoing pain. Patient states she would like to be discharged from care at this time, as she does not feel she requires any follow-up. [facility] Medical History Diabetes type 2 Hyperlipidemia HTN (hypertension) Anxiety Diabetes High cholesterol GERD (gastroesophageal reflux disease) Surgical History H/O cervical spine surgery Hx of hysterectomy Social History Household Members: None Housing: Apartment Alcohol intake: never Patient Tobacco Use Status: Never used Tobacco Current occupational status: retired and disabled Current occupation: right hand dominant Review of Systems Const All systems reviewed & are unremarkable except as noted in HPI and below Physical Exam Vital Signs: BMI result Body Mass Index 26.8 Extrem Other: On inspection, there is no visible deformity of the right arm No edema, erythema, ecchymosis noted Well approximated and well healing incision sites noted over the humerus of the right arm No evidence of infection Patient reports no tenderness to palpation of the right proximal arm Patient is able to flex the right elbow to approximately 140 degrees and extend to approximately 0 degrees without difficulty Patient is able to forward flex the right shoulder to approximately 100 degrees, is able to externally rotate to approximately 60 degrees Distal sensation intact Capillary refill brisk Results Reviewed Results Reviewed: X-rays obtained in the office today and independently reviewed by me, Federico Dong PA-C, demonstrate surgically reduced fracture of the right humeral shaft with all orthopedic hardware in place and in satisfactory clinical alignment and with evidence of interval bony healing. Assessment & Plan Assessment & Plan (1) Fracture of humeral shaft, right, closed: Code(s): S42.301A - Unspecified fracture of shaft of humerus, right arm, initial encounter for closed fracture Category: Medical Qualifiers: Encounter type: subsequent encounter Fracture morphology: other fracture Plan 1. Status post right humerus ORIF DOS 12/10/2024 Patient appears to be recovering well postoperatively Patient is educated about the typical recovery course Patient may increase to full normal activity at this time, as the fracture appears to be healing quite well and all orthopedic hardware is in satisfactory clinical alignment No acute follow-up indicated at this time Patient is amenable to this plan Follow-up as needed with any acute concerns Orders: Orders XR humerus RT Today S42.301A - Unspecified fracture of shaft of humerus, right arm, initial encounter for closed fracture Coding Level of Care Code Est Pt Level 3 (97913) Diagnoses Fracture of humeral shaft, right, closed S42.301A Encounter type: subsequent encounter Fracture morphology: other fracture
[2025-07-14 14:05] VITALS: BMI 26.8
== END 2025-07-14 14:36 | disposition home or self-care (01) ==
LOC: HO.HOS 13:35
DX: S42.301A Unspecified fracture of shaft of humerus, right arm, initial encounter for closed fracture (principal)
CPT/HCPCS: 99213

== ENCOUNTER → 2025-07-14 13:48 | Outpatient (BNV) | payer MEDICARE, MEDICAID, SELFPAY | PROVIDERS: Visit Provider Radiology Diagnostic Radiology | DX: S42.401K Unspecified fracture of lower end of right humerus, subsequent encounter for fracture with nonunion (principal) | CPT/HCPCS: 73060 ==